=== PATIENT | male | born 1980 | race Caucasian/White ===

== ENCOUNTER 2022-01-25 10:33 | Outpatient (CLI) | payer OTHER, SELFPAY ==
[2022-01-25 13:53] LABS: Chloride* 95 mmol/L (96-114)
[2022-01-25 13:54] LABS: Albumin* 5.1 g/dL (3.3-5.0); Sodium* 139 mmol/L (135-149)
[2022-01-25 13:56] LABS: Creatinine* 0.8 mg/dL (0.5-1.5); Estimated Glomerular Filt Rate 114 ml/min
[2022-01-25 13:57] LABS: Alanine Aminotransferase* 28 U/L (4-50); Alkaline Phosphatase* 44 U/L (40-150); Aspartate Amino Transferase* 29 U/L (12-35); Bilirubin Total* 1.3 mg/dL (0.1-1.5); Blood Urea Nitrogen* 16 mg/dL (5-24); Calcium* 10.4 mg/dL (8.4-10.6); Carbon Dioxide* 33 mmol/L (20-32); Glucose* 107 mg/dL (60-115); Potassium* 3.7 mmol/L (3.6-5.1); Total Protein* 8.5 g/dL (6.0-8.3)
[2022-01-25 14:06] LABS: Cholesterol* 248 mg/dL (90-199); HDL Cholesterol* 41 mg/dL (>=40); LDL Cholesterol Calculated 176 mg/dL (<100); Triglycerides* 153 mg/dL (40-149)
--- OUTSIDE RECORDS SUMMARY | 2022-02-20 12:19 | XMS_ITS | Encounter Summary ---
:1980 Author Organization [place] Address [address] [facility] [place] [address] Care Team Providers Name Role Phone Clinic, [facility] Primary Care Provider [phone] Kathi Clark MD Unavailable Encounter Details Date Type Department Care Team Description 01/18/2022 Travel Social History Tobacco Use Types Packs/Day Years Used Date Never Smoker 0 0 Smokeless Tobacco: Never Used Alcohol Use Standard Drinks/Week Comments Not Currently 0 (1 standard drink = 0.6 oz pure Use to drink 2-3 drinks a day 5 alcohol) days a week. Current ly zero Alcohol Habits Answer Date Recorded How often do you have a drink Not asked containing alcohol? How many drinks containing alcohol Not asked do you have on a typical day when you are drinking? How often do you have six or more Not asked drinks on one occasion? Comment: Use to drink 2-3 drinks a day 5 10/13/19 22 days a week. Currently zero Sex Assigned at Date Recorded Male 10/09/2021 11:09 AM CDT Travel History Travel Start Travel End [place] 12/30/2021 01/12/2022 COVID-19 Exposure Response Date Recorded In the last 10 days, have you been in contact with No / Unsu re 01/18/2022 9:15 AM CDT someone who was confirmed or suspected to have Coronavirus/COVID-19? documented as of this encounter Plan of Treatment Upcoming Encounters Date Type Specialty Care Team Description 02/07/2022 Virtual Visit Psychology Raulito Flores tt, REVENUE SETTLEMENTS ADMINISTRATOR [address] [place] [address] (Wo rk) 02/15/2022 Ancillary Procedure Neurology Leann Schmitt MD [address] [place] [phone] (Wo rk) 03/05/2022 Virtual Visit Neurology Leann Villagran MD [address] [place] [address] [phone] (Wo rk) documented as of this encounter Visit Diagnoses Not on filedocumented in this encounter Additional Health Concerns Assessment Noted Time PHQ-9 Depression Total Score: 2 10/27/2021 8:19 AM CDT documented as of this encounter Care Teams Manager Sas Relationship Specialty Start Date End Date Clinic, [place] Jaja Rowan PCP - General 10/31/[address] [place] [address] [place] [address] Kathi Clark MD Assigned PCP 09/21/[address] [place] [address] [place] [id number] documented as of this encounter
--- OUTSIDE RECORDS SUMMARY | 2022-02-20 12:19 | XMS_ITS | Encounter Summary ---
:1980 Author Organization [place] Address Formerly [facility] [facility] [place] [address] Care Team Providers Name Role Phone [facility] Jaja Rivera Primary Care Provider [phone] Kathi Clark MD Unavailable Reason for Visit Reason Comments Follow Up Consultation (Priority: 1-2 Weeks) - Closed Specialty Diagnoses / Procedures Referred By Contact Refer red To Contact Diagnoses Seizures (H) Alcohol dependence with withdrawal with complication (H) Kathi Clark MD [address] D R NEUROLOGY [place] [phone] [place] [address] [address] [place] [phone] Phone: Fax: Referral ID Status Reason Start Date Expiration Date Visits Requ ested Visits Authorized [id number] Closed 10/31/2021 10/31/2022 1 1 Encounter Details Date Type Department Care Team Description 01/18/2022 Office Visit [facility] Kathi Clark MD [address] [place] [address] [place] [phone] Seizures (H); 5775 Leann Rose MD [address] [place], [place] [address] Alcohol dependence with withdrawal with complication (H) [address], [address] [place] [address] Social History Tobacco Use Types Packs/Day Years [...] CDT Travel History Travel Start Travel End [place] 12/30/2021 01/12/2022 COVID-19 Exposure Response Date Recorded In the last 10 days, have you been in contact with No / Unsu re 01/18/2022 9:15 AM CDT someone who was confirmed or suspected to have Coronavirus/COVID-19? documented as of this encounter Last Filed Vital Signs Vital Sign Reading Time Taken Comments Blood Pressure 136/83 01/18/2022 9:22 AM CDT Pulse 87 01/18/2022 9:22 AM CDT Temperature 36.2 ??C (97.2 ??F) 01/18/2022 9:22 AM CDT Respiratory Rate - - Oxygen Saturation - - Inhaled Oxygen Concentration - - Weight 84.9 kg (187 lb 3.2 oz) 01/18/2022 9:22 AM CDT Height 182.9 cm (6') 01/18/2022 9:22 AM CDT Body Mass Index 25.39 01/18/2022 9:22 AM CDT documented in this encounter Progress Notes Leann Villagran MD - 01/18/2022 9:30 AM CDT [facility] Epilepsy Care History and Physical Patient: Darien Mckenzie : 1980 Age: [age] year old Today's Office Visit: 01/18/2022 Referring Provider: Kathi Clark MD [address] [address] History of Present Illness: Mr. Darien Bui is an 41-year-old left-handed male who was referred for evaluation of an isolated seizure. His seizure occurred on September 2021. He was at her sister's house and they had a libertarian for his [id number]. She was giving his daughter a bottle and then he had a seizure. He was told he fell onto his side. He bit his tongue. No urinary incontinence. They day before they went to [facility] in [place], and at some point he felt dehydrated. I talked to his [id number] Paul, who witnessed the seizure on the phone. He said the first thingthey noted was that Darien let out a gasping sound, then he tilted to the side. He turned blue, he wasvery stiff as a board and also was shaking, moving his arms up and down. It lasted about ~4 min. Afterwards he was breathing hard. It took about 15 min to come to. He was very confused afterwards. He went to [facility] in [place]. He was started on gabapentin taper after his seizure. He is off GBP now. He had increased LFTs AST/ALT 203/156 10/02/21 which came down to 91/126 on 10/19/21. He says they were checked in December and were normal. (outside lab) He states that he used to drink a lot daily, more specifically 5-10 heavy drinks daily. Then he decided to gradually cut back on his drinking as a New Year's resolution. He was still drinking heavilyup to about a week prior to his seizure. On that week he drank 0-2 drinks per day and no drink on the day of the seizure. He has been sober since December 08, 2021. He participates in AA program. Epilepsy Risk Factors: No history of febrile seizures, meningitis or encephalitis, significant head injury or family history of epilepsy. Precipitating factors: Likely alcohol withdrawal Past Medical History: h/o alcohol abuse and dependence, HTN, hepatic steatosis. Past Medical History: Diagnosis Date ??? Hypertension 10/01/2021 Past Surgical History: Procedure Laterality Date ??? SOFT TISSUE SURGERY 07/15/1999 Nerve repair right index finger Family History Problem Relation Age of Onset ??? Diabetes Maternal Grandfather ??? Diabetes Paternal Grandmother Diabetes ??? Dementia Paternal Grandfather Social History Socioeconomic History ??? Marital status: Single Spouse name: None ??? Number of children: None ??? Years of education: None ??? Highest education level: None Tobacco Use ??? Smoking status: Never Smoker ??? Smokeless tobacco: Never Used Substance and Sexual Activity ??? Alcohol use: Not Currently Comment: Use to drink 2-3 drinks a day 5 days a week. Currently zero ??? Drug use: Never ??? Sexual activity: Yes Partners: Female control/protection: Pill Other Topics Concern ??? Parent/sibling w/ CABG, SC or angioplasty before 65F 55M? No Employment/School: he quit smoking 2003. He has 4 yr college education in business management and finance, he does financial planning, currently unemployed. He is . He has 3 kinds 1, 7 and 12. Driving: Currently patient is: Driving Previous Evaluations for Epilepsy: EEG 10/03/21: This a largely normal EEG. The low amplitude/high frequency activity is characteristicof a benzodiazepine effect, but hyperthyroidism could also produce this picture. He has no evidence of focal slowing, epileptiform discharges, or seizure activity. Clinical correlation is required. MRI of Brain 10/02/21: Unremarkable Current Outpatient Medications Medication Sig Dispense Refill ??? amLODIPine (NORVASC) 10 MG tablet Take 10 mg by mouth daily ??? folic acid (FOLVITE) 1 MG tablet Take 1 tablet (1 mg) by mouth daily 30 tablet 0 ??? hydrochlorothiazide (HYDRODIURIL) 25 MG tablet Take 25 mg by mouth daily Started on 12/28/21 for 30 days. ??? thiamine (B-1) 100 MG tablet Take 1 tablet (100 mg) by mouth daily 30 tablet 0 ??? amLODIPine (NORVASC) 2.5 MG tablet Take 1 tablet (2.5 mg) by mouth daily (Patient not taking: Reported on 01/18/2022) 90 tablet 2 ??? cetirizine (ZYRTEC) 10 MG tablet Take 10 mg by mouth daily as needed for allergies (fall season)(Patient not taking: Reported on 10/27/2021) ??? fexofenadine-pseudoePHEDrine (JENNIFER-D 24) 180-240 MG 24 hr tablet Take 1 tablet by mouth dailyas needed for allergies (fall season) (Patient not taking: Reported on 10/27/2021) ??? fluticasone (FLONASE) 50 MCG/ACT nasal spray [place] 1 spray into both nostrils daily as needed for rhinitis or allergies (fall season) (Patient not taking: Reported on 10/27/2021) ??? ketotifen (ZADITOR) 0.025 % ophthalmic solution Place 1 drop into both eyes 2 times daily as needed for itching or dry eyes (fall season) (Patient not taking: Reported on 10/27/2021) ??? Multiple Vitamins-Minerals (MULTIVITAMIN GUMMIES ADULT) CHEW Take 1 chew tab by mouth daily (Patient not taking: Reported on 10/27/2021) ??? naproxen sodium (ANAPROX) 220 MG tablet Take 220 mg by mouth 3 times daily as needed for moderate pain (Patient not taking: Reported on 10/27/2021) ??? oxymetazoline (AFRIN) 0.05 % nasal spray [place] 2 sprays into both nostrils 2 times daily as needed for congestion (fall season) (Patient not taking: Reported on 10/27/2021) Past AEDs: AED - ANTIEPILEPTIC DRUGS 10/12/2021 gabapentin (Oral) Discontinued Exam: BP 136/83 Pulse 87 Temp 97.2 ??F (36.2 ??C) (Temporal) Ht 1.829 m (6') Wt 84.9 kg (187 lb 3.2 oz) BMI 25.39 kg/m?? Wt Readings from Last 5 Encounters: 01/18/22 84.9 kg (187 lb 3.2 oz) 12/14/21 83.9 kg (185 lb) 10/12/21 85.3 kg (188 lb) 10/05/21 85.1 kg (187 lb 9.6 oz) GENERAL APPEARANCE: Alert, awake, cooperative, in no apparent distress. NEUROLOGICAL EXAMINATION: MENTAL STATUS: Alert and oriented. LANGUAGE/SPEECH: No aphasia or dysarthria. CRANIAL NERVES: Pupils are round and reactive to light. Extraocular movements are intact. Facial sensation is intact to light touch. Face is symmetric. Hearing is intact to voice. MOTOR: Normal tone, bulk and strength 5/5 with no pronator drift. COORDINATION: Normal finger to nose. No dysmetria or tremor. REFLEXES: DTRs 2+ symmetric. Toes are downgoing. GAIT: Gait and tandem gait are steady. Assessment and Plan: An isolated generalized tonic-clonic seizure, likely alcohol withdrawal seizure: Patient had an outside EEG and brain MRI which were unremarkable. Patient has no known risk factors for epilepsy. His seizure occurred after 1 week of significant decrease in alcohol consumption after drinking heavily daily. He received thiamine and was put on CIWA protocol, and gabapentin taper. He is off gabapentin now. He was also encouraged to participate in AA program for his chemical dependency, which he did and he has been sober since 12/08. I encouraged him to continue staying sober. I suggested to do an EEG andif his EEG was normal he does not need to take any antiseizure medications. [place] regulations on seizures and driving were reviewed with the patient. The patient clearly understands that she/he is prohibited from operating a motor vehicle within 3 months following any seizure (that will impair control of car) or other episode with sudden unconsciousness or inability to sit up, and that she/he is required to report this most recent seizure to the DMV within 30 days after the event. Avoid any activities that might lead to self-injury or injury of others, within 3 months following any seizure with impaired awareness or impaired motor control such activities include but are not limited to operating power tools, operating firearms, climbing ladders/trees/exposure to heights from which he might fall, exposure to vessels with hot cooking oil or water, and swimming alone. -3-hour video EEG -Follow-up phone call after EEG As described above, I met with the patient for 45 minutes and during this time counseling was % of the visit time. I spent an additional 15 minutes on chart review and documentation. This notewas created in part by the use of [employer]izdee voice recognition system. Inadvertent grammatical errors and typographical errors may still exist. Leann Villagran MD documented in this encounter Plan of Treatment Upcoming Encounters Date Type Specialty Care Team Description 02/07/2022 Virtual Visit Psychology Raulito Flores tt, PASTRY CHEF [address] [place] [address] (Wo rk) 02/15/2022 Ancillary Procedure Neurology Leann Schmitt MD [address] [place] [phone] (Wo rk) 03/05/2022 Virtual Visit Neurology Leann Villagran MD [address] [place] [phone] (Wo rk) Scheduled Orders Name Type Priority Associated Diagnoses Order S chedule EEG Video 2-12 hrs EEG Routine Seizures (H) Expected: 01/18/2022 Continuous Monitoring (Appro ximate), Expires: 01/18/2023 documented as of this encounter Visit Diagnoses Diagnosis Seizures (H) Other convulsions Alcohol dependence with withdrawal with complication (H) documented in this encounter Additional Health Concerns Assessment Noted Time PHQ-9 Depression Total Score: 2 10/27/2021 8:19 AM CDT documented as of this encounter Care Teams Building Architectural Designer Relationship Specialty Start Date End Date [facility], [place] Jaja Rivera PCP - General 10/31/[address] [place] [address] [place] [address] Kathi Clark MD Assigned PCP 09/21/[address] [place] [address] [place] [phone] documented as of this encounter
--- OUTSIDE RECORDS SUMMARY | 2022-02-20 12:19 | XMS_ITS | Encounter Summary ---
:1980 Author Organization [facility] Address [address] [place] [address] Care Team Providers Name Role Phone [facility] [phone] Kathi Clark MD Unavailable Reason for Visit Reason Comments Anxiety Encounter Details Date Type Department Care Team Description 01/24/2022 Virtual Visit [facility] Raulito Flores Other spe cified anxiety disorders (Primary Dx); [facility] THERESE Cain Alcohol use disorder, severe, dependence (H) [address] [place] [id number] [phone] Social History Tobacco Use Types Packs/Day Years [...] CDT Travel History Travel Start Travel End [place] 12/30/2021 01/12/2022 COVID-19 Exposure Response Date Recorded In the last 10 days, have you been in contact with No / Unsu re 01/18/2022 9:15 AM CDT someone who was confirmed or suspected to have Coronavirus/COVID-19? documented as of this encounter Progress Notes Raulito Flores, THERESE - 01/24/2022 11:00 AM CDT Images from the original note were not included. [facility] Counseling Progress Note Patient Name: Darien Mckenzie Date: 01/24/22 Service Type: Individual Session Start Time: 11 AM Session End Time: 11:57 AM Session Length: 60 minutes Session #: 8 Attendees: Client attended alone Service Modality: Video Visit: Provider verified identity through the following two step process. Patient provided: Patient was verified at admission/transfer Telemedicine Visit: The patient's condition can be safely assessed and treated via synchronous audioand visual telemedicine encounter. Reason for Telemedicine Visit: Patient has requested telehealth visit Originating Site (Patient Location): Patient's home Distant Site (Provider Location): [facility] Consent: The patient/guardian has verbally consented to: the potential risks and benefits of telemedicine (video visit) versus in person care; bill my insurance or make self-payment for services provided; and responsibility for payment of non-covered services. Patient would like the video invitation sent by: My Chart Mode of Communication:?? Video Conference via [employer] As the provider I attest to compliance with applicable laws and regulations related to telemedicine. DATA Extended Session (53+ minutes): PROLONGED SERVICE IN THE OUTPATIENT SETTING REQUIRING DIRECT ([id number]) PATIENT CONTACT BEYOND THE USUAL SERVICE: - Patient's presenting concerns require more intensive intervention than could be completed within the usual service Interactive Complexity: No Crisis: No Progress Since Last Session (Related to Symptoms / Goals / Homework): Symptoms: Improving Client has been sober from alcohol dependence. He completed [facility] inpatient treatment in [place], [place]. He continues to experience anxiety related to multiple stressors(current relationship conflicts, custody arguments with his Ex- Gerri, and needing to find employment).. Homework: Completed in session Episode of Care Goals: Minimal progress - ACTION (Actively working towards change); Intervened by reinforcing change plan / affirming steps taken Current / Ongoing Stressors and Concerns: The client returned to individual psychotherapy session to address anxiety, following the medical crisis of having a seizure following alcohol detoxification, struggles with his ex- (regular intense conflicts verbally and with the legal system; and his current partner has asked him to move in with his parents because of his alcohol relapses. He is currently in early remission from alcohol use/dependence. Client states he has been maintaining in his mood over his frustration towards his ex- Gerri. He states that he is feeling more direct and professional in his interactions rather than becoming irritated or personally reacting to her comments. 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 He talked about how he had managed his frustrations despite being verbally confronted and challenged many things. He states that his ex- has interfered with and made unilateraldecisions about the care and visitation of his children, which has violated the divorce decree. He describes several instances of this, and recognized that her difficulties arose significantly after a couple of months of trying to work through things. He was asked about the situation prior to the divorce and confirmed that his affair lasted for 3 years and then she was aware of the final 2 to 3 months. Therapist highlighted the importance of recognizing traumatization through relational betrayal to create space for that acceptance, and he was provided strategies on how to communicate clearly his acknowledgment of responsibility and other situations similar to the one he described. He states he hasbeen proficient at hiding things including his affair as well as his drinking. He is of negatively impacted his interactions with his fianc??laura Schmidt. He states that he is now finding her reactions (similar to PTSD betrayal) and stated that he may utilize this communication mechanism within his interactions with changing. He states that he hopes that things will progress and then she will accept his sobriety and conscientious needs in addition to his personal accountability to the relationship as well as of communicating an apology. He states that he also has understanding of the multitude of stressors that she is facing including a family cancer situation, her own parent struggling with care, chaotic interactions with others, and COVID. He described a situation where he spent almost an snorkelingand this negatively impacted the relationship because she felt he was there for her and entertained his own activity without consideration for her or the relationship. Therapist advised the client to be direct and assist his fianc??e in communicating directly with him as well, rather than processing most things internally. Treatment Objective(s) Addressed in This Session: identify 2-5 strategies to more effectively address stressors identify at least 3 alternative response(s) to aggressive behaviors Maintaining perspective over his needs for ongoing support with respect to alcohol and family changes. Assertiveness and listening skills were provided. Intervention: Motivational Interviewing HI Intervention: Expressed Empathy/Understanding, Supported Autonomy, Collaboration, Evocation, Permission to raise concern or advise, Open-ended questions, Reflections: simple and complex, Change talk(evoked) and Reframe Change Talk Expressed by the Patient: Desire to change Ability to change Reasons to change Need to change Committment to change Provider Response to Change Talk: E - Evoked more info from patient about behavior change, A - Affirmed patient's thoughts, decisions, or attempts at behavior change, R - Reflected patient's change talk and S - Summarized patient's change talk statements Assessments completed prior to visit: The following assessments were completed by patient for this visit: PHQ2: PHQ-2 (??1999 [employer]) 01/19/2022 10/18/2021 Q1: Little interest or pleasure in doing things 1 0 Q2: Feeling down, depressed or hopeless 1 0 PHQ-2 Score 2 0 Q1: Little interest or pleasure in doing things Several days Not at all Q2: Feeling down, depressed or hopeless Several days Not at all PHQ-2 Score 2 0 PHQ9: PHQ-9 SCORE 10/12/2021 10/27/2021 PHQ-9 Total Score 0 2 GAD2: LETA-2 10/18/2021 01/19/2022 Feeling nervous, anxious, or on edge 0 1 Not being able to stop or control worrying 0 1 LETA-2 Total Score 0 2 GAD7: LETA-7 SCORE 10/12/2021 10/27/2021 Total Score 0 2 CAGE-AID: CAGE-AID Total Score 10/18/2021 Total Score 2 Total Score MyChart 2 (A total score of 2 or greater is considered clinically significant) PROMIS 10-Global Health (only subscores and total score): PROMIS-10 Scores Only 10/18/2021 01/19/2022 Global Mental Health Score 17 10 Global Physical Health Score 18 16 PROMIS TOTAL - SUBSCORES 35 26 [place] Suicide Severity Rating Scale (Lifetime/Recent) [place] Suicide Severity Rating (Lifetime/Recent) 10/18/2021 10/27/2021 Q1 Wished to be (Past Month) - no Q2 Suicidal Thoughts (Past Month) - no Q3 Suicidal Thought Method - no Q4 Suicidal Intent without Specific Plan - no Q5 Suicide Intent with Specific Plan - no Q6 Suicide Behavior (Lifetime) - no Level of Risk per Screen - low risk 1. Wish to be (Lifetime) 0 - 2. Non-Specific Active Suicidal Thoughts (Lifetime) 0 - Actual Attempt (Lifetime) 0 - Has subject engaged in non-suicidal self-injurious behavior? (Lifetime) 0 - Interrupted Attempts (Lifetime) 0 - Aborted or Self-Interrupted Attempt (Lifetime) 0 - Preparatory Acts or Behavior (Lifetime) 0 - Calculated C-SSRS Risk Score (Lifetime/Recent) No Risk Indicated - ASSESSMENT: Current Emotional / Mental Status (status of significant symptoms): Risk status (Self / Other harm or suicidal ideation) Patient denies current fears or concerns for personal safety. Patient denies current or recent suicidal ideation or behaviors. Patient denies current or recent homicidal ideation or behaviors. Patient denies current or recent self injurious behavior or ideation. Patient denies other safety concerns. Patient reports there has been no change in risk factors since their last session. Patient reports there has been no change in protective factors since their last session. Recommended that patient call 911 or go to the local ED should there be a change in any of these risk factors. Appearance: Appropriate Eye Contact: Good Psychomotor Behavior: Normal Attitude: Cooperative Friendly Pleasant Orientation: All Speech Rate / Production: Normal/ Responsive Talkative Volume: Normal Mood: Anxious Depressed Irritable Sad Affect: Worrisome Thought Content: Clear Rumination Thought Form: Coherent Logical Insight: Good Medication Review: No current psychiatric medications prescribed Medication Compliance: NA Changes in Health Issues: None reported Chemical Use Review: Substance Use: decrease in alcohol . Patient reports frequency of use discontinued since the end 2021.. Reviewed information and resources for treatment and ongoing sobriety Patient assessed present costs and future losses as a result of substance use Reviewed concerns related to health related substance abuse risk Provided encouragement towards sobriety Provided support and affirmation for steps taken towards sobriety Discussed treatment options and encouraged patient to schedule an appointment with PCP Client took initiative to contact [facility] treatment centers, and completed evaluation by Chemical Dependency counselor. Recommendation was for him to start IOP for his alcohol use. Client completed treatment, and has been sober/early remission from alcohol since beginning his program at [facility]. Tobacco Use: No current tobacco use. Diagnosis: 1. Other specified anxiety disorders 2. Alcohol use disorder, severe, dependence (H) Collateral Reports Completed: Not Applicable He is scheduled for [facility] on January 04 and (pre-admission screening) and January 11 he will start his daily outpatient treatment. PLAN: (Patient Tasks / Therapist Tasks / Other) Client will use metaphors (alcohol as the other woman) to inform his decisions to drink or not drink.Client will return to session with his partner later in the week to discuss trust rebuilding.Client will finish paperwork for a release of information to be sent to [facility]. Client was approved for [facility], and will start the group program at [facility] in the coming week and a half. He agreed to speak with his physician about his preference to restart Gabapentin. He is monitoring for DT's and will admit himself into the hospital if his symptoms emerge or worsen. He will review handouts regarding Repair Attempts ([place]) to assist with interactions with others, and will consider coping strategies and distraction methods that can be used for emotion regulation (to replace using the substance to bethe regulating behavior). Heart-Math biofeedback was recommended client stated he will look into it as well as use progressive muscle relaxation. Therapist will resume sessions when client deems it appropriate. Therapist referred to a psychiatrist (priority referral) and was encouraged to keep his next week appointment. Therapist will address repair with his fianc??e regarding his alcohol use disorder and health fears. Handouts provided for Repair attempts and coping strategies. Therapist will offer suggestions for emotion regulation protocols. 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 PROMIS (reviewed every 90 days): Referral / Collaboration: Was/were discussed and patient will pursue. [facility] treatment services were identified by the client as helpful. He has an appointment for debt collection specialist evaluation and referral for their services. Anticipated number of session for this episode of care: 15 Anticipation frequency of session: Weekly Anticipated Duration of each session: 38-52 minutes Treatment plan will be reviewed in 90 days or when goals have been changed. MeasurableTreatment Goal(s) related to diagnosis / functional impairment(s) Goal 1: Patient will resolve anxiety from multiple changes in his life context (including resolving substance use challenges). ???I will know I've met my goal when I am sober and relaxed.??? Objective #A (Patient Action) Patient will identify 5 strategies to more effectively address stressors Complete alcohol use disorder services. identify patterns of escalation (i.e. tightness in chest, flushed face, increased heart rate, clenched hands, etc.) identify at least 5 techniques for intervening on the escalation use progressive relaxation exercise once in the morning and once in the evening to help relieve tension Repair damage from lying about drinking, and reinforce trust within his relationship with Brayan Status: Continued - Date(s): 01/24/2022: Client completed alcohol use treatment at [facility], and has been sober from alcohol since the end of November 2021. He continues to have irritability and increased physiological response/tension with respect to triggering events. He has utilized some relaxation strategies. He continues to require intervention regarding assertiveness communication and emotion regulation. Intervention(s) Therapist will teach Emotion regulation skills, strategies to reduce destructive anger, and trust repair strategies.. Patient and Patient and significant other/spouse has reviewed and agreed to the above plan. THERESE Mcclendon 01/24/22 documented in this encounter Plan of Treatment Upcoming Encounters Date Type Specialty Care Team Description 02/07/2022 Virtual Visit Psychology Raulito Flores tt, THERESE [address] [place] [address] (Wo rk) 02/15/2022 Ancillary Procedure Neurology Leann Schmitt MD [address] [place] [id number] (Wo rk) 03/05/2022 Virtual Visit Neurology Leann Villagran MD [address] [place] [id number] (Wo rk) documented as of this encounter Visit Diagnoses Diagnosis Other specified anxiety disorders - Prim ernesto Alcohol use disorder, severe, dependence (H) documented in this encounter Additional Health Concerns Assessment Noted Time PHQ-9 Depression Total Score: 2 10/27/2021 8:19 AM CDT documented as of this encounter Care Teams Real Time Operator Relationship Specialty Start Date End Date [facility], [facility] Jaja Rowan PCP - General 10/31/[address] [place] [address] [place] [id number] Kathi Clark MD Assigned PCP 09/21/[address] [place] [address] [place] [id number] documented as of this encounter
--- OUTSIDE RECORDS SUMMARY | 2022-02-20 12:19 | XMS_ITS | Encounter Summary ---
:1980 Author Organization [place] Address [address] [facility] [place] [address] Care Team Providers Name Role Phone [facility], [facility] Primary Care Provider [phone] Kathi Clark MD Unavailable Encounter Details Date Type Department Care Team Description 11/24/2021 Virtual Visit [facility] Raulito Flores spe cified anxiety disorders (Primary Dx); [facility] THERESE Cain Uncomplicated alcohol dependence (H) [address] [place] [address] [address] [place] [address] [phone] Social History Tobacco Use Types Packs/Day Years [...] CDT Travel History Travel Start Travel End [place] 12/30/2021 01/12/2022 COVID-19 Exposure Response Date Recorded In the last 10 days, have you been in contact with No / Unsu re 10/26/2021 8:29 AM CDT someone who was confirmed or suspected to have Coronavirus/COVID-19? documented as of this encounter Progress Notes Raulito Flores, THERESE - 11/24/2021 10:00 AM CDT Images from the original note were not included. [facility] Counseling Progress Note Patient Name: Darien Mckenzie Date: 11/24/21 Service Type: Individual Session Start Time: 10 AM Session End Time: 11:01 AM Session Length: 61 minutes Session #: 6 Attendees: Client attended alone Service Modality: Video Visit: Provider verified identity through the following two step process. Patient provided: Patient was verified at admission/transfer Telemedicine Visit: The patient's condition can be safely assessed and treated via synchronous audioand visual telemedicine encounter. Reason for Telemedicine Visit: Patient has requested telehealth visit Originating Site (Patient Location): Patient's home Distant Site (Provider Location): [employer] Consent: The patient/guardian has verbally consented to: the potential risks and benefits of telemedicine (video visit) versus in person care; bill my insurance or make self-payment for services provided; and responsibility for payment of non-covered services. Patient would like the video invitation sent by: My Chart Mode of Communication:?? Video Conference via Vig[employer] As the provider I attest to compliance with applicable laws and regulations related to telemedicine. DATA Extended Session (53+ minutes): PROLONGED SERVICE IN THE OUTPATIENT SETTING REQUIRING DIRECT ([id number]) PATIENT CONTACT BEYOND THE USUAL SERVICE: - Patient's presenting concerns require more intensive intervention than could be completed within the usual service Interactive Complexity: No Crisis: No Progress Since Last Session (Related to Symptoms / Goals / Homework): Symptoms: No change Client stated has been drinking daily 1-2 mixed drinks per night, and occasionally 4 mixed drinks or burbon on ice. He continues to deal with legal and skilled nursing issues ex-. Christopherds 2 AA groups daily, and is involved in a closed men's group called [facility]. He stated he was prescribed Gabapentin for alcohol urges. His anxiety and striggles with handleing emotions has been challenging. He shows signs of irritability and frustration outwardly, and anxiouness and shame internally. His relationship with his fiance' is challenged as Darien has lied about drinking and has shown insecurities leading to distance between the two. He has not had a siezure since starting counseling, butreported shakes when delaying alcohol use. . Homework: Completed in session Episode of Care [...] his parents because of his alcohol relapses. The client states consumed 1-2 drinks per evening every night, and has 4 drinks of bourbon on other occasions. He stated he often gets the thought, I need a drink. He has a talk with a provider the other night and was prescribed Gabapentin 300 mg once per day. He is hopeful his urge to drink will reduce, and that he can Establish sobriety. He was urged to consider how he may formulate a specific plan of reduction and was asked to address this in his substance abuse provider network, to get guidance on the matter. He agreed this would be an important agenda to pursue. He stated his emotions have been more irritable and with some sadness as he has some poorly worded interactions with his sons. He s tated he was raised in an extended family system indict that was verbally direct and used more roughstyles of interactions and parents spanked. He was provided information about parenting styles (Permissive, Authoritarian, and Authoritative), and he was urged to catch his own words that may sound aggr essive and own it. He agreed he could try this, and was receptive to the idea of formulating repairswith those he speaks this way with (Brayan, the boys, etc.). The client is involved in daily AA groups in the mornings and evenings, and stated he would be open to having another session next Saturday to follow up on his process. Therapist sent the client materials on repair attempts. Treatment Objective(s) Addressed in This Session: identify 2-5 strategies to more effectively address stressors identify at least 3 alternative response(s) to aggressive behaviors Intervention: Motivational Interviewing [place] Intervention: Expressed Empathy/Understanding, Supported Autonomy, Collaboration, Evocation, [...] for this visit: PHQ2: PHQ-2 (??1999 Pfizer) 10/18/2021 Q1: Little interest or pleasure in doing things 0 Q2: Feeling down, depressed or hopeless 0 PHQ-2 Score 0 Q1: Little interest or pleasure in doing things Not at all Q2: Feeling down, depressed or hopeless Not at all PHQ-2 Score 0 PHQ9: PHQ-9 SCORE 10/12/2021 10/27/2021 PHQ-9 Total Score 0 2 GAD2: LETA-2 10/18/2021 Feeling nervous, anxious, or on edge 0 Not being able to stop or control worrying 0 LETA-2 Total Score 0 GAD7: LETA-7 SCORE 10/12/2021 10/27/2021 Total Score 0 2 CAGE-AID: CAGE-AID Total Score 10/18/2021 Total Score 2 Total Score MyChart 2 (A total score of 2 or greater is considered clinically significant) PROMIS 10-Global Health (only subscores and total score): PROMIS-10 Scores Only 10/18/2021 Global Mental Health Score 17 Global Physical Health Score 18 PROMIS TOTAL - SUBSCORES 35 [place] Suicide Severity Rating Scale (Lifetime/Recent) [place] Suicide Severity Rating (Lifetime/Recent) 10/18/2021 10/27/2021 Q1 [...] Contact: Good Psychomotor Behavior: Normal Attitude: Cooperative Pleasant Orientation: All Speech Rate / Production: Normal/ Responsive Talkative Volume: Normal Mood: Anxious Irritable Sad Agitated Affect: Worrisome Thought Content: Clear Rumination Thought Form: Coherent Logical Insight: Good Medication Review: No current psychiatric medications prescribed Medication Compliance: NA Changes in Health Issues: None reported Chemical Use Review: Substance Use: decrease in alcohol . Patient reports frequency of use average of 1-2 daily per mostrecent disclosure.. Reviewed information and resources for treatment and ongoing sobriety Patient assessed present costs and future losses as a result of substance use Reviewed concerns related to health related substance abuse risk Provided encouragement towards sobriety Provided support and affirmation for steps taken towards sobriety Discussed treatment options and encouraged patient to schedule an appointment with PCP Client took initiative to contact [facility] centers, and completed evaluation by Chemical Dependency counselor. Recommendation was for him to start IOP for his alcohol use. Tobacco Use: No current tobacco use. Diagnosis: 1. Other specified anxiety disorders 2. Uncomplicated alcohol dependence (H) Collateral Reports Completed: Not Applicable He is scheduled for [place] on January 04 and (pre-admission screening) and [...] release of information to be sent to [facility]. Client was approved for [place], and will start the group program at [facility] in the coming week and a half. He agreed to speak with his physician about his preference to restart Gabapentin. He is monitoring for DT's and will admit himself into the hospital if his symptoms emerge or worsen. He will review handouts regarding Repair Attempts (Franko) to assist with interactions with others, and will consider coping strategies and distraction methods that can be used for emotion regulation (to replace using the substance to bethe regulating behavior). Therapist will resume sessions when client deems it appropriate. Therapist referred to a psychiatrist (priority referral) and was encouraged to keep his next week appointment. Therapist will address repair with his fianc??e regarding his alcohol use disorder and health fears. Handouts provided for Repair attempts and coping strategies. 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 PROMIS (reviewed every 90 days): Referral / Collaboration: Was/were discussed and patient will pursue. [facility] treatment services were identified by the client as helpful. He has an appointment for hse specialist evaluation and referral for their services. [...] trust within his relationship with Brayan Status: New - Date: 10/26/2021 Intervention(s) Therapist will teach Emotion regulation skills, strategies to reduce destructive anger, and trust repair strategies.. Patient and Patient and significant other/spouse has reviewed and agreed to the above plan. THERESE Mcclendon 11/24/21 documented in this encounter Plan of Treatment Upcoming Encounters Date Type Specialty Care Team Description 02/07/2022 Virtual Visit Psychology Raulito Flores, THERESE [address] [place] [address] ([place]) 02/15/2022 Ancillary Procedure Neurology Leann Schmitt MD [address] [place] [phone] ([place]) 03/05/2022 Virtual Visit Neurology Leann Villagran MD [address] [place] [address] [phone] ([place]) documented as of this encounter Visit Diagnoses Diagnosis Other specified anxiety disorders - Prim ernesto Uncomplicated alcohol dependence (H) Other and unspecified alcohol dependence , unspecified drinking behavior documented in this encounter Additional Health Concerns Assessment Noted Time PHQ-9 Depression Total Score: 2 10/27/2021 8:19 AM CDT documented as of this encounter Care Teams Broomcorn Press Feeder Relationship Specialty Start Date End Date Clinic, [place] Jaja Rowan PCP - General 10/31/[address] [place] [address] [place] [address] Kathi Clark MD Assigned PCP 09/21/[address] [place] [address] [place] [phone] documented as of this encounter
--- OUTSIDE RECORDS SUMMARY | 2022-02-20 12:19 | XMS_ITS | Encounter Summary ---
:1980 Author Organization [place] Address [facility] [place] [address] Care Team Providers Name Role Phone [facility] Primary Care Provider [phone] Kathi Clark MD Unavailable Reason for Visit Reason Onset Date Comments Refill Request 11/21/2021 folic acid (FOLVITE) 1 MG tablet Encounter Details Date Type Department Care Team Description 11/21/2021 Refill [facility] [address] [place] [address] [address] [facility] tab let) [place] [address] [phone] (Wo rk) Social History Tobacco Use Types Packs/Day Years [...] have Coronavirus/COVID-19? documented as of this encounter Miscellaneous Notes Telephone Encounter - Alexandro Castellon RN - 11/23/2021 11:02 AM CDT Routing refill request to provider for review/approval because: Routing to confirm that patient should take this medication 1 more month Alexandro Castellon RN [facility] Triage Nurse Telephone Encounter - Martina Moon - 11/21/2021 4:14 PM CDT documented in this encounter Plan of Treatment Upcoming Encounters Date Type Specialty Care Team Description 02/07/2022 Virtual Visit Psychology Raulito Flores tt, [address] [phone] ([place]) 02/15/2022 Ancillary Procedure Neurology Leann Schmitt MD [address] [place] [address] [phone] ([place]) 03/05/2022 Virtual Visit Neurology Leann Villagran MD [address] [place] [address] [phone] ([place]) documented as of this encounter Visit Diagnoses Diagnosis Alcohol dependence with uncomplicated wi thdrawal (H) Other and unspecified alcohol dependence , unspecified drinking behavior documented in this encounter Additional Health Concerns Assessment Noted Time PHQ-9 Depression Total Score: 2 10/27/2021 8:19 AM CDT documented as of this encounter Care Teams Consumer Affairs Director Relationship Specialty Start Date End Date [facility], [place] Jaja Rowan PCP - General 10/31/[address] [place] [address] [place] [phone] Kathi Clark MD Assigned PCP 09/21/[address] [place] [address] [place] [address] documented as of this encounter
--- OUTSIDE RECORDS SUMMARY | 2022-02-20 12:19 | XMS_ITS | Encounter Summary ---
:1980 Author Organization [place] Address [address] [facility] [place] [address] Care Team Providers Name Role Phone [facility] Provider [phone] Kathi Clark MD Unavailable Reason for Visit Reason Comments Anxiety Encounter Details Date Type Department Care Team Description 01/19/2022 Virtual Visit [facility] Raulito Flores Other spe cified anxiety disorders (Primary Dx); [facility] THERESE Cain Uncomplicated alcohol dependence (H) [address] [place] [address] [address] [place] [address] [phone] Social History Tobacco Use Types Packs/Day Years [...] as of this encounter Progress Notes Raulito Flores LMFT - 01/19/2022 9:00 AM CDT Images from the original note were not included. [facility] Counseling Progress Note Patient Name: Darien Mckenzie Date: 01/19/22 Service Type: Individual Session Start Time: 9 AM Session End Time: 10 AM Session Length: 60 minutes Session #: 7 Attendees: Client attended alone Service Modality: Video Visit: Provider verified identity through the following two step process. Patient provided: Patient was verified at admission/transfer Telemedicine Visit: The patient's condition can be safely assessed and treated via synchronous audioand visual telemedicine encounter. Reason for Telemedicine Visit: Patient has requested telehealth visit Originating Site (Patient Location): Patient's home Distant Site (Provider Location): [facility] Consent: The patient/guardian has verbally consented to: the potential risks and benefits of telemedicine (video visit) versus in person care; bill my insurance or make self-payment for services provided; and responsibility for payment of non-covered services. Patient would like the video invitation sent by: My Chart Mode of Communication:?? Video Conference via [employer] As the provider I attest to compliance with applicable laws and regulations related to telemedicine. DATA Extended Session (53+ minutes): PROLONGED SERVICE IN THE OUTPATIENT SETTING REQUIRING DIRECT ([id number]) PATIENT CONTACT BEYOND THE USUAL SERVICE: - Patient's presenting concerns require more intensive intervention than could be completed within the usual service Interactive Complexity: No Crisis: No Progress Since Last Session (Related to Symptoms / Goals / Homework): Symptoms: Improving Client has been sober from alcohol dependence for the following 42 days. He completed [facility] inpatient treatment in [place], [place]. He continues to experience anxiety related to multiple stressors (current relationship conflicts, custody arguments with his Ex- [...] in early remission from alcohol use/dependence. Client stated that he wished to address his coping strategies with respect to his ex- and the constant conflict that he experiences while trying to have time with his children from his first marriage. He states despite the marriage being over for several years, he continues to have to deal with negative interactions and violation of the divorce decree by his ex-. Therapist highlighted the importance of recognizing why he is becoming frustrated or angry, which yielded the following results: She was breaking the rules that were set and finalized, and has no true consequences or her multiple violations. Therapist offered validation and encouraged him to accept the situation as it is currently, and to utilize a coping skills flow chart for different scenarios that are most likely with his ex-. Therapist demonstrated how this may appear for other people and how he can identify different things that help him regulate his emotions better. Therapist encouraged him to look into heart math- biofeedback mechanisms to alter tension level and reduce frustration intolerance. He showed openness and willingness to explore. Therapist highlighted the importance also of emotional insight and responsiveness versus demanding means with respect to his interactions with his current on again off again relationship with Brayan. He discussed how he felt sad and disappointed with his partner's ambivalence and avoidance and now she moved his and his boys' belongings to a storage. He stated that symbolically, this meant to him that he is no longer part of her plan going forward. Therapist encouraged the client to hold off from that position, and to address his needs currently and to explore the options for his relationship with Brayan when he becomes more regulated. He states that the seizures and alcoholabuse have led to significant consequences for his life, and he continues to have perspective shifting from personal current experiences to the larger picture. Therapist encouraged him to continue going back and forth between experiencing and overall concept of current dynamics. Treatment Objective(s) Addressed in This Session: identify 2-5 strategies to more effectively address stressors identify at least 3 alternative response(s) to aggressive behaviors Maintaining perspective over his needs for ongoing support with respect to alcohol and family changes. Intervention: Motivational Interviewing [place] Intervention: Expressed Empathy/Understanding, Supported Autonomy, Collaboration, Evocation, [...] 16 PROMIS TOTAL - SUBSCORES 35 26 [place] Suicide Severity Rating Scale (Lifetime/Recent) [place] Suicide Severity Rating (Lifetime/Recent) 10/18/2021 10/27/2021 Q1 [...] Normal Mood: Anxious Irritable Sad Agitated Affect: Labile Worrisome Thought Content: Clear Rumination Thought Form: [...] with PCP Client took initiative to contact [facility], and completed evaluation by Chemical Dependency counselor. Recommendation was for him to start IOP for his alcohol use. Client completed treatment, and has been sober/early remission from alcohol since beginning his program at [facility]. Tobacco Use: No current tobacco use. Diagnosis: 1. Other specified anxiety disorders 2. Uncomplicated alcohol dependence (H) Collateral Reports Completed: Not Applicable He is scheduled for [place] on January 04 and (pre-admission screening) and [...] release of information to be sent to [facility]. Client was approved for [place], and will start the group program at [facility] in the coming week and a half. [...] will offer suggestions for emotion regulation protocols. 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 PROMIS (reviewed every 90 days): Referral / Collaboration: Was/were discussed and patient will pursue. [facility] treatment services were identified by the client as helpful. He has an appointment for talent specialist evaluation and referral for their services. [...] agreed to the above plan. THERESE Mcclendon 01/19/22 documented in this encounter Plan of Treatment Upcoming Encounters Date Type Specialty Care Team Description 02/07/2022 Virtual Visit Psychology Raulito Flores tt, THERESE [address] [place] [address] ([place]) 02/15/2022 Ancillary Procedure Neurology Olu-Leann Knox MD [address] [place] [address] [phone] (Wo rk) 03/05/2022 Virtual Visit Neurology Leann Villagran MD [address] [place] [phone] (Wo rk) documented as of this encounter Visit Diagnoses Diagnosis Other specified anxiety disorders - Prim ernesto Uncomplicated alcohol dependence (H) Other and unspecified alcohol dependence , unspecified drinking behavior documented in this encounter Additional Health Concerns Assessment Noted Time PHQ-9 Depression Total Score: 2 10/27/2021 8:19 AM CDT documented as of this encounter Care Teams Beater Engineer Helper Relationship Specialty Start Date End Date Clinic, [place] Jaja Rivera PCP - General 10/31/[address] [place] [address] [place] [address] Kathi Clark MD Assigned PCP 09/21/[address] [place] [address] [place] [phone] documented as of this encounter
--- OUTSIDE RECORDS SUMMARY | 2022-02-20 12:19 | XMS_ITS | Clinical Summary ---
:1980 Author Organization [place] Address [address] [facility] [place] [address] Care Team Providers Name Role Phone Clinic, [facility] Primary Care Provider [phone] Kathi Clark MD Unavailable Allergies Active Allergy Reactions Severity Noted Date Comments Sulfa Drugs 02/24/2011 Pain Hydrocodone-Acetaminophen Nausea and Vomiting 12/15/19 22 Medications Medication Sig Dispensed Refills Start Date End Date Status Multiple Take 1 chew tab by 0 A ctive Vitamins-Minerals mouth daily (MULTIVITAMIN GUMMIES ADULT) CHEW naproxen sodium Take 220 mg by 0 Active (ANAPROX) 220 MG mouth 3 times tablet daily as needed for moderate pain cetirizine (ZYRTEC) 10 Take 10 mg by 0 Active MG tablet mouth daily as needed for allergies (fall) oxymetazoline (AFRIN) [place] 2 sprays 0 Active 0.05 % nasal spray into both nostrils 2 times daily as needed for congestion (fall) fexofenadine-pseudoePH Take 1 tablet by 0 Active EDrine (JENNIFER-D 24) mouth daily as 180-240 MG 24 hr needed for tablet allergies (fall) ketotifen (ZADITOR) Place 1 drop into 0 Active 0.025 % ophthalmic both eyes 2 times solution daily as needed for itching or dry eyes (fall) fluticasone (FLONASE) [place] 1 spray into 0 Active 50 MCG/ACT nasal spray both nostrils daily as needed for rhinitis or allergies (fall) folic acid (FOLVITE) 1 Take 1 tablet (1 30 tablet 0 11/23/2021 Active MG tabletIndications: mg) by mouth daily Alcohol dependence with uncomplicated withdrawal (H) amLODIPine (NORVASC) Take 1 tablet (2.5 90 tablet 2 11/27/2021 Active 2.5 MG mg) by mouth daily tabletIndications: Alcohol dependence with uncomplicated withdrawal (H) Additional Information Patient not taking. Reported on 01/18/2022 thiamine (B-1) 100 MG Take 1 tablet (100 30 tablet 0 Active tabletIndications: Alcohol mg) by mouth daily dependence with uncomplicated withdrawal (H) amLODIPine (NORVASC) 10 MG tablet Take 10 mg by mouth 0 01/09/2022 Active daily hydrochlorothiazide (HYDRODIURIL) Take 25 mg by mouth 0 12/28/2021 Active 25 MG tablet daily Started on 12/28/21 for 30 days. Active Problems Problem Noted Date Adjustment disorder with anxious mood 11/10/2021 Uncomplicated alcohol dependence 11/10/2021 Seizure 10/01/2021 Hyperglycemia 10/01/2021 Elevated LFTs 10/01/2021 Encounters Date Type Specialty Care Team Description 01/24/2022 Virtual Visit Raulito Quiñonez Other specifie d anxiety disorders (Primary Dx); THERESE Cain Alcohol use dis order, severe, dependence (H) 01/19/2022 Virtual Visit Raulito Quiñonez Other specifie d anxiety disorders (Primary Dx); THERESE Cain Uncomplicated a lcohol dependence (H) 01/18/2022 Office Visit Neurology Namballa, Kathi, Seizures (H); Alcohol dependence with withdrawal with complication (H) Leann Villagran MD 01/18/2022 Travel 12/14/2021 Emergency EMERGENCY MEDICINE Dina Connor, Suresh ction of PA-C eustachian tube 12/14/2021 Travel 12/13/2021 Refill [facility] Refill R [facility] (thiamine (B-1) 100 MG tablet) 11/24/2021 Virtual Visit Raulito Quiñonez Other specifie d anxiety disorders (Primary Dx); THERESE Cain Uncomplicated a lcohol dependence (H) 11/24/2021 Travel 11/23/2021 Virtual Visit Raulito Quiñonez Adjustment dis order with anxious mood (Primary Dx); THERESE Cain Uncomplicated a lcohol dependence (H) 11/23/2021 Travel 11/23/2021 Refill [facility], [place] Refill R equest [facility] (amLODIPine (NO RVASC) 2.5 MG tablet) 11/21/2021 Refill [facility], [place] Refill R equest (folic [facility] acid (FOLVITE) 1 MG tablet) 11/17/2021 Virtual Visit Raulito Quiñonez Adjustment dis order with anxious mood (Primary Dx); THERESE Cain Alcohol use dis order, severe, dependence (H) 11/16/2021 Telephone Raulito Quiñonez Patient Request GHADA CainFT 11/10/2021 Virtual Visit Raulito Quiñonez Adjustment dis order with anxious mood (Primary Dx); THERESE Cain Alcohol use dis order, severe, dependence (H) 11/06/2021 Virtual Visit Raulito Quiñonez Adjustment dis order with anxious mood (Primary Dx); THERESE Cain Uncomplicated a lcohol dependence (H) 10/31/2021 Telephone [facility] Kathi Clark, Clinic Care MD Coordination - Post Hospital (Medic ation questions post hospital discharge) from Last 3 Months Immunizations Name Administration Dates Next Due COVID-19,PF,Pfizer (12+ Yrs) 06/02/2021, 11/08/2020, 021 DT (PEDS <7y) 05/29/1983 Hep B, Peds or Adolescent 02/08/2000 Historical DTP/aP 01/23/1985, 05/18/1982, 1980, 1980, 1980 Influenza Vaccine IM > 6 months 03/27/2021, 05/26/2014 Valent IIV4 (Alfuria,Fluzone) Influenza Vaccine, 6+MO IM 04/12/2017, 03/15/2016 (QUADRIVALENT W/PRESERVATIVES) MMR 12/28/1991, 05/06/1981 OPV, trivalent, live 01/23/1985, 05/18/1982, 1980, 1980 Pneumococcal 23 valent 10/12/2021 Td (Adult), Adsorbed 07/15/2006, 03/08/1997 Tdap (Adacel,Boostrix) 05/27/2013 Family History Medical History Relation Comments Diabetes Maternal Grandfather Dementia Paternal Grandfather Diabetes Paternal Grandmother Diabetes Relation Status Comments Daughter Alive Father Alive Maternal Grandfather Mother Alive Paternal Grandfather Paternal Grandmother Son 1 Alive Son 2 Alive Social History Tobacco Use Types Packs/Day Years [...] CDT Travel History Travel Start Travel End [place] 12/30/2021 01/12/2022 COVID-19 Exposure Response Date Recorded In the last 10 days, have you been in contact with No / Unsu re 01/18/2022 9:15 AM CDT someone who was confirmed or suspected to have Coronavirus/COVID-19? Last Filed Vital Signs Vital Sign Reading Time Taken Comments Blood Pressure 136/83 01/18/2022 9:22 AM CDT Pulse 87 01/18/2022 9:22 AM CDT Temperature 36.2 ??C (97.2 ??F) 01/18/2022 9:22 AM CDT Respiratory Rate 18 12/14/2021 3:22 PM CDT Oxygen Saturation 98% 12/14/2021 3:22 PM CDT Inhaled Oxygen Concentration - - Weight 84.9 kg (187 lb 3.2 oz) 01/18/2022 9:22 AM CDT Height 182.9 cm (6') 01/18/2022 9:22 AM CDT Body Mass Index 25.39 01/18/2022 9:22 AM CDT Plan of Treatment Upcoming Encounters Date Type Specialty Care Team Description 02/07/2022 Virtual Visit Psychology Raulito Flores tt, [employer] F[employer]ER [address] [place] [address] (Wo rk) 02/15/2022 Ancillary Procedure Neurology Leann Schmitt MD [address] [place] [id number] (Wo rk) 03/05/2022 Virtual Visit Neurology Leann Villagran MD [address] [place] [address] (Wo rk) Health Maintenance Due Date Last Done Comments ADVANCE CARE PLANNING 1980 PREVENTIVE CARE VISIT 1980 INFLUENZA VACCINE (#1) 2022 03/27/2021, 04/12/2017, 03/15/2016, Additional history exists ANNUAL REVIEW OF HM ORDERS 10/12/2022 10/12/2021 Pneumococcal Vaccine: 10/12/2022 10/12/2021 Pediatrics (0 to 5 Years) and At-Risk Patients (6 to 64 Years) (2 - PCV) DTAP/TDAP/TD IMMUNIZATION 05/27/2023 05/27/2013, 07/15/2006 , (7 - Td or Tdap) 03/08/1997, Additional history exists LIPID 10/19/2026 10/19/2021 IPV IMMUNIZATION Completed 01/23/1985, 05/18/1982, 1980, Additional history exists HEPATITIS B IMMUNIZATION Aged Out 02/08/2000 No long er eligible based on patient 's age to complete this topic COVID-19 Vaccine Completed 06/02/2021, 11/08/2020, 10/18/2020 HEPATITIS C SCREENING Completed 10/19/2021 HIV SCREENING Completed 10/19/2021 PHQ-2 (once per calendar Completed 01/19/2022, 10/27/2021, year) 10/27/2021, Additional history exists MENINGITIS IMMUNIZATION Aged Out No longe r eligible based on patient 's age to complete this topic Insurance Payer Benefit Plan / Subscriber ID Effective Phone Address T ype Group Dates [facility] [id number] 2021-Prese [phone] [address] [facility] [facility] HEALTHCARE nt [address] [place] [address] [facility] [id number] 2021-Prese [phone] [place] [address] [phone] [phone] [place], [place] 3 (Work) [id number] JonahDarien Maldonado Personal/Family Self 1980 [phone] [phone] [place], [place] 3 (Work) [id number] Darien Mckenzie Behavioral Self 1980 [phone] [phone] [place], [place] 3 (Work) [id number] Advance Directives For more information, please contact: [phone] Latest Code Status on File Code Status Date Activated Date Inactivated Comments Full Code 10/05/2021 8:31 AM 12/14/2021 2:57 PM Code status determined by: Discussion with patient/ legal de cision maker Full Code 10/01/2021 7:28 PM 10/05/2021 8:31 AM All basic an d advanced life-sustaining interventions ar e performed as appropriate Code status determined by: Discussion with patient/ legal de cision maker Care Teams [place] Relationship Specialty Start Date End Date [facility], [place] Jaja Rowan PCP - General 10/31/[address] [place] [address] [place] [address] Kathi Clark MD Assigned PCP 09/21/[address] [place] [address] [place] [address]
--- OUTSIDE RECORDS SUMMARY | 2022-02-20 12:19 | XMS_ITS | Encounter Summary ---
:1980 Author Organization [place] Address [address] [facility] [place] [address] Care Team Providers Name Role Phone [facility] [phone] Kathi Clark MD Unavailable Reason for Referral Mental Health Outpatient (Priority: 1-2 Weeks) - Referral NOT Required Specialty Diagnoses / Procedures Referred By Contact Refer red To Contact Behavioral Health Diagnoses Adjustment disorder with anxious mood Alcohol use disorder, severe, dependence (H) Raulito Flores M [facility] [address] [place], [place] [address] [address] [place] [address] Phone: [phone] Referral ID Status Reason Start Date Expiration Date Visits V isits Requested Authorized [id number] Referral NOT 11/17/2021 07/14/2022 1 1 Required Reason for Visit Reason Comments Anxiety Alcohol Problem Encounter Details Date Type Department Care Team Description 11/17/2021 Virtual Visit [facility] Raulito Flores disorder with anxious mood (Primary Dx); [facility] THERESE Cain Alcohol use disorder, severe, dependence (H) [address] [facility] [address] [facility], [place] [phone] Social History Tobacco Use Types Packs/Day Years Used Date Never Smoker 0 0 Smokeless Tobacco: Never Used Alcohol Use Standard Drinks/Week Comments Not Currently 0 (1 standard drink = 0.6 oz pure Use to drink 2-3 drinks a day 5 alcohol) days a week. Tina daigley zero Alcohol Habits Answer Date Recorded How [...] CDT Travel History Travel Start Travel End [place] 12/30/2021 01/12/2022 COVID-19 Exposure Response Date Recorded In the last 10 days, have you been in contact with No / Unsu re 10/26/2021 8:29 AM CDT someone who was confirmed or suspected to have Coronavirus/COVID-19? documented as of this encounter Progress Notes Raulito Flores, THERESE - 11/17/2021 9:00 AM CDT Images from the original note were not included. [facility] Counseling Progress Note Patient Name: Darien Mckenzie Date: 11/17/21 Service Type: Individual Session Start Time: 1:30 PM Session End Time: 2:30 PM Session Length: 60 minutes Session #: 3 Attendees: Client attended alone Service Modality: Video Visit: Provider verified identity through the following two step process. Patient provided: Patient was verified at admission/transfer Telemedicine Visit: The patient's condition can be safely assessed and treated via synchronous audioand visual telemedicine encounter. Reason for Telemedicine Visit: Patient has requested telehealth visit Originating Site (Patient Location): Patient's home Distant Site (Provider Location): [facility] Consent: The patient/guardian has verbally consented to: the potential risks and benefits of telemedicine (video visit) versus in person care; bill my insurance or make self-payment for services provided; and responsibility for payment of non-covered services. Patient would like the video invitation sent by: My Chart Mode of Communication:?? Video Conference via Amwell As the provider I attest to compliance with applicable laws and regulations related to telemedicine. DATA Extended Session (53+ minutes): PROLONGED SERVICE IN THE OUTPATIENT SETTING REQUIRING DIRECT ([id number]) PATIENT CONTACT BEYOND THE USUAL SERVICE: - Patient's presenting concerns require more intensive intervention than could be completed within the usual service Interactive Complexity: No Crisis: No Progress Since Last Session (Related to Symptoms / Goals / Homework): Symptoms: Improving Client stated has been sober from alcohol for the past few days, eventhough he his addressing difficulties with his ex-'s behaviors. (November 03, the client had a relapse of three cocktails and was taken by a juliet to Group where he is working with a sponsor.) His fianc??ewill participate to address conjoint facotors affecting the client's functioning. The client's demonstrated improved insight and recognized he may not be able to drink again in the future. His adjustment to his drinking problem provoking a seizure continues to be complex and triggers anxiety. Homework: Completed in session Episode of Care Goals: Minimal progress - ACTION (Actively working towards change); Intervened by reinforcing change plan / affirming steps taken Current / Ongoing Stressors and Concerns: The client returned to individual psychotherapy session to address adjustment disorder with anxiety, following the medical crisis of having a seizure following alcohol detoxification. He stated that he was going to remain sober for the extent of his psychotherapy and for the first stable future. Client reported having alcohol on a couple of nights...I've been lying to Brayan about drinking. He confirmed that he has been drinking intermittently one-two cocktails which included more than oneshot of liquor. He Stated he is struggling with keeping himself sober, despite wanting to. He asked this therapist to coordinate with his physician regarding Gabapentin (he took this in September which helped with his withdrawal and cravings). Therapist encouraged him to seek detox if he continued to havewithdrawal symptoms. He reported shakes and sweats the other day. He indicated he is approved now [facility] to [facility] and [facility] an intensive outpatient program with them as soon as next week. He stated he has to confirm that he is alcohol free from 3 days or more prior to his starting Chemical Dependence treatment. Therapist enquired if there is a psychiatrist in his past, or if he needed a referral for one. He asked to be referred. Relational dynamics include atoning for his choices to his significant other. He was provided a template for how to do this work, and was open to discussing it further, oncehe gets to this point in the coming weeks. Therapist scheduled a session next week. Treatment Objective(s) Addressed in This Session: identify 2-5 strategies to more effectively address stressors identify at least 3 alternative response(s) to aggressive behaviors Intervention: Motivational Interviewing NE Intervention: Expressed Empathy/Understanding, Supported Autonomy, Collaboration, Evocation, [...] Score 18 PROMIS TOTAL - SUBSCORES 35 Knox Suicide Severity Rating Scale (Lifetime/Recent) Knox Suicide Severity Rating (Lifetime/Recent) 10/18/2021 10/27/2021 Q1 [...] Appropriate Eye Contact: Good Psychomotor Behavior: Normal Restless Attitude: Cooperative Pleasant Orientation: All Speech Rate / Production: Normal/ Responsive Talkative Volume: Normal Mood: Anxious Depressed Irritable Sad Affect: Appropriate Thought Content: Clear Rumination Thought Form: Coherent [...] with PCP Client took initiative to contact [facility] treatment centers, and completed evaluation by Chemical Dependency counselor. Recommendation was for him to start IOP for his alcohol use. Tobacco Use: No current tobacco use. Diagnosis: 1. Adjustment disorder with anxious mood 2. Alcohol use disorder, severe, dependence (H) Collateral Reports Completed: Not Applicable PLAN: (Patient Tasks / Therapist Tasks / Other) Previous: Client will use metaphors (alcohol as the other woman) to inform his decisions to drink ornot drink.Client will return to session with his partner later in the week to discuss trust rebuilding.Client will finish paperwork for a release of information to be sent to [facility]. Therapist will resume sessions when client deems it appropriate. Current: Client was approved for [facility], and will start the group program at [facility] in the coming week and a half. He agreed to speak with his physician about his preference to restart Gabapentin. He is attempting to remain alcohol free for the week. Therapist referred to a psychiatrist (priority referral) and was encouraged to keep his next week appointment. 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 PROMIS (reviewed every 90 days): Referral / Collaboration: Was/were discussed and patient will pursue. [facility] treatment services were identified by the client as helpful. He has an appointment for instrument specialist evaluation and referral for their services. [...] agreed to the above plan. THERESE Mcclendon 11/17/21 documented in this encounter Plan of Treatment Upcoming Encounters Date Type Specialty Care Team Description 02/07/2022 Virtual Visit Psychology Raulito Flores tt, THERESE [address] [place] [address] ([place]) 02/15/2022 Ancillary Procedure Neurology Leann Schmitt MD [address] [place] [phone] (Wo rk) 03/05/2022 Virtual Visit Neurology Leann Villagran MD [address] [place] [phone] ([place]) Scheduled Referrals Name Type Priority Associated Diagnoses Order [facility] Adult Mental Health Referral Priority: 1-2 Adjustment disorder Expected: Supervisor [employer] Placing Referral Weeks with anxious mood 11/17/2021 Alcohol use (Approximate), disorder, severe, Expires: dependence (H) 11/17/2022 documented as of this encounter Visit Diagnoses Diagnosis Adjustment disorder with anxious mood - Primary Adjustment disorder with anxiety Alcohol use disorder, severe, dependence (H) documented in this encounter Additional Health Concerns Assessment Noted Time PHQ-9 Depression Total Score: 2 10/27/2021 8:19 AM CDT documented as of this encounter Care Teams Client Services Account Manager Relationship Specialty Start Date End Date Clinic, [place] PCP - General 10/31/[address] [place] [address] [place] [address] Kathi Clark MD Assigned PCP 09/21/[address] [place] [address] [place] [id number] documented as of this encounter
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
--- OUTSIDE RECORDS SUMMARY | 2022-02-20 12:19 | XMS_ITS | Encounter Summary ---
:1980 Author Organization [facility] Address [address] [facility] [place] [address] Care Team Providers Name Role Phone Clinic, [facility] Primary Care Provider [phone] Kathi Clark MD Unavailable Encounter Details Date Type Department Care Team Description 12/14/2021 Travel Social History Tobacco Use Types Packs/Day [...] CDT Travel History Travel Start Travel End [place] 12/30/2021 01/12/2022 COVID-19 Exposure Response Date Recorded In the last 10 days, have you been in contact with No / Unsu re 12/14/2021 2:57 PM CDT someone who was confirmed or suspected to have Coronavirus/COVID-19? documented as of this encounter Plan of Treatment Upcoming Encounters Date Type Specialty Care Team Description 02/07/2022 Virtual Visit Psychology Raulito Flores tt, TAX CONSULTANT [address] [place] [address] (Wo rk) 02/15/2022 Ancillary Procedure Neurology Leann Schmitt MD [address] [place] [phone] (Wo rk) 03/05/2022 Virtual Visit Neurology Leann Villagran MD [address] [place] [phone] (Wo rk) documented as of this encounter Visit Diagnoses Not on filedocumented in this encounter Additional Health Concerns Assessment Noted Time PHQ-9 Depression Total Score: 2 10/27/2021 8:19 AM CDT documented as of this encounter Care Teams Export Clerk Relationship Specialty Start Date End Date Clinic, [facility] Rowan PCP - General 10/31/[address] [place] [address] [place] [address] Kathi Clark MD Assigned PCP 09/21/[address] [place] [address] [place] [address] documented as of this encounter
--- OUTSIDE RECORDS SUMMARY | 2022-02-20 12:19 | XMS_ITS | Encounter Summary ---
:1980 Author Organization [facility] Address [address] [facility] [place] [address] Care Team Providers Name Role Phone Clinic, [facility] Primary Care Provider [phone] Kathi Clark MD Unavailable Encounter Details Date Type Department Care Team Description 11/23/2021 Travel Social History Tobacco Use Types Packs/Day [...] CDT Travel History Travel Start Travel End [place] 12/30/2021 01/12/2022 COVID-19 Exposure Response Date Recorded In the last 10 days, have you been in contact with No / Unsu re 10/26/2021 8:29 AM CDT someone who was confirmed or suspected to have Coronavirus/COVID-19? documented as of this encounter Plan of Treatment Upcoming Encounters Date Type Specialty Care Team Description 02/07/2022 Virtual Visit Psychology Raulito Flores tt, TOP FRAME MAKER [address] [place] [address] (Wo rk) 02/15/2022 Ancillary Procedure Neurology Leann Schmitt MD [address] [place] [phone] (Wo rk) 03/05/2022 Virtual Visit Neurology Leann Villagran MD [address] [place] [phone] (Wo rk) documented as of this encounter Visit Diagnoses Not on filedocumented in this encounter Additional Health Concerns Assessment Noted Time PHQ-9 Depression Total Score: 2 10/27/2021 8:19 AM CDT documented as of this encounter Care Teams Automation Design Engineer Relationship Specialty Start Date End Date Clinic, [facility] Rowan PCP - General 10/31/[address] [place] [address] [place] [address] aKthi Clark MD Assigned PCP 09/21/[address] [place] [address] [place] [address] documented as of this encounter
--- OUTSIDE RECORDS SUMMARY | 2022-02-20 12:19 | XMS_ITS | Encounter Summary ---
:1980 Author Organization [facility] Address [address] [facility] [place] [address] Care Team Providers Name Role [facility] [phone] Kathi Clark MD Unavailable Reason for Visit Reason Onset Date Comments Refill Request 11/23/2021 amLODIPine (NORVASC) 2.5 MG tablet Encounter Details Date Type Department Care Team Description 11/23/2021 Refill [facility] (amLODIPine (NORVASC) [address] 2.[address] tablet) [place] [address] [phone] (Wo rk) Social History Tobacco Use Types [...] CDT Travel History Travel Start Travel End [place] 12/30/2021 01/12/2022 COVID-19 Exposure Response Date Recorded In the last 10 days, have you been in contact with No / Unsu re 10/26/2021 8:29 AM CDT someone who was confirmed or suspected to have Coronavirus/COVID-19? documented as of this encounter Miscellaneous Notes Telephone Encounter - Batsheva Copeland RN - 11/27/2021 3:10 PM CDT Prescription approved per [facility] refill protocol. Batsheva Copeland RN Telephone Encounter - Batsheva Copeland RN - 11/27/2021 2:42 PM CDT Pharmacy was called and verified that amLODIPine (NORVASC) 2.5 MG tablet was received and filled from 11/04/21. Telephone Encounter - Yola Tirado RN - 11/27/2021 8:32 AM CDT This was just prescribed for a 30 day supply 11/04. Triage to call pharmacy to verify that it was received/filled. Telephone Encounter - Martina Moon - 11/23/2021 8:57 AM CDT documented in this encounter Plan of Treatment Upcoming Encounters Date Type Specialty Care Team Description 02/07/2022 Virtual Visit Psychology Raulito Flores tt, WIND ENERGY MECHANIC [address] [place] [address] (Wo rk) 02/15/2022 Ancillary Procedure Neurology Leann Schmitt MD [address] [place] [phone] (Wo rk) 03/05/2022 Virtual Visit Neurology Leann Villagran MD [address] [place] [address] (Wo rk) documented as of this encounter Visit Diagnoses Diagnosis Alcohol dependence with uncomplicated wi thdrawal (H) Other and unspecified alcohol dependence , unspecified drinking behavior documented in this encounter Additional Health Concerns Assessment Noted Time PHQ-9 Depression Total Score: 2 10/27/2021 8:19 AM CDT documented as of this encounter Care Teams End Maker Relationship Specialty Start Date End Date Clinic, [facility] Jaja Rowan PCP - General 10/31/[address] [place] [address] [place] [address] Kathi Clark MD Assigned PCP 09/21/[address] [place] [address] [place] [address] documented as of this encounter
--- OUTSIDE RECORDS SUMMARY | 2022-02-20 12:19 | XMS_ITS | Encounter Summary ---
:1980 Author Organization [facility] Address [address] [facility] [place] [address] Care Team Providers Name Role Phone Clinic, [facility] Primary Care Provider [phone] Kathi Clark MD Unavailable Encounter Details Date Type Department Care Team Description 11/24/2021 Travel Social History Tobacco Use Types Packs/Day [...] CDT Travel History Travel Start Travel End [place] 12/30/2021 01/12/2022 COVID-19 Exposure Response Date Recorded In the last 10 days, have you been in contact with No / Unsu re 10/26/2021 8:29 AM CDT someone who was confirmed or suspected to have Coronavirus/COVID-19? documented as of this encounter Plan of Treatment Upcoming Encounters Date Type Specialty Care Team Description 02/07/2022 Virtual Visit Psychology Raulito Flores tt, SUMMER LAW CLERK [address] [place] [address] (Wo rk) 02/15/2022 Ancillary Procedure Neurology Leann Schmitt MD [address] [place] [phone] (Wo rk) 03/05/2022 Virtual Visit Neurology Leann Villagran MD [address] [place] [address] [phone] (Wo rk) documented as of this encounter Visit Diagnoses Not on filedocumented in this encounter Additional Health Concerns Assessment Noted Time PHQ-9 Depression Total Score: 2 10/27/2021 8:19 AM CDT documented as of this encounter Care Teams Oyster Culturist Relationship Specialty Start Date End Date Clinic, [facility] Jaja Rowan PCP - General 10/31/[address] [place] [address] [place] [address] Kathi Clark MD Assigned PCP 09/21/[address] [place] [address] [place] [address] documented as of this encounter
--- OUTSIDE RECORDS SUMMARY | 2022-02-20 12:19 | XMS_ITS | Encounter Summary ---
:1980 Author Organization [facility] Address [address] [place] [address] Care Team Providers Name Role Phone Clinic, [facility] Primary Care Provider [phone] Kathi Clark MD Unavailable Reason for Visit Reason Comments Ear Fullness Encounter Details Date Type Department Care Team Description 12/14/2021 Emergency [facility] Dina Connor PA-C Dysfunction of [place] Emergency De pt [address] [facility] eustachian tube [address] [place] [id number] [phone] (Wo rk) Social History Tobacco Use Types [...] Sign Reading Time Taken Comments Blood Pressure 127/85 12/14/2021 3:22 PM CDT Pulse 101 12/14/2021 3:22 PM CDT Temperature 36.4 ??C (97.5 ??F) 12/14/2021 3:22 PM CDT Respiratory Rate 18 12/14/2021 3:22 PM CDT Oxygen Saturation 98% 12/14/2021 3:22 PM CDT Inhaled Oxygen Concentration - - Weight 83.9 kg (185 lb) 12/14/2021 3:22 PM CDT Height 185.4 cm (6' 1) 12/14/2021 3:22 PM CDT Body Mass Index 24.41 12/14/2021 3:22 PM CDT documented in this encounter Discharge Instructions AttachmentsThe following attachments cannot be sent through Care Everywhere. Earache Without Infection (Adult) (Rwandan)documented in this encounter Medications at Time of Discharge Medication Sig Dispensed Refills Start Date End Date amLODIPine (NORVASC) 2.5 Take 1 tablet (2.5 90 tablet 2 MG tabletIndications: mg) by mouth daily Alcohol dependence with uncomplicated withdrawal (H) cetirizine (ZYRTEC) 10 Take 10 mg by mouth 0 MG tablet daily as needed for allergies (fall season) fexofenadine-pseudoePHED Take 1 tablet by 0 rine (JENNIFER-D 24) mouth daily as needed 180-240 MG 24 hr tablet for allergies (fall) fluticasone (FLONASE) 50 [place] 1 spray into 0 MCG/ACT nasal spray both nostrils daily as needed for rhinitis or allergies (fall) folic acid (FOLVITE) 1 Take 1 tablet (1 mg) 30 tablet 0 05/ 06/2022 MG tabletIndications: by mouth daily Alcohol dependence with uncomplicated withdrawal (H) ketotifen (ZADITOR) Place 1 drop into 0 0.025 % ophthalmic both eyes 2 times solution daily as needed for itching or dry eyes (fall) Multiple Take 1 chew tab by 0 Vitamins-Minerals mouth daily (MULTIVITAMIN GUMMIES ADULT) CHEW naproxen sodium Take 220 mg by mouth 0 (ANAPROX) 220 MG tablet 3 times daily as needed for moderate pain oxymetazoline (AFRIN) [place] 2 sprays into 0 0.05 % nasal spray both nostrils 2 times daily as needed for congestion (fall) thiamine (B-1) 100 MG Take 1 tablet (100 30 tablet 0 2021 tabletIndications: mg) by mouth daily Alcohol dependence with uncomplicated withdrawal (H) thiamine (B-1) 100 MG Take 1 tablet (100 30 tablet 0 202112/15/2021 tabletIndications: mg) by mouth daily Alcohol dependence with uncomplicated withdrawal (H) documented as of this encounter ED Notes Radha Correa - 12/14/2021 3:55 PM CDT Called [facility] and gave nurse report at 1545 pm and arranged machine pecan picker for pt. Art Beltre RN - 12/14/2021 3:23 PM CDT Bilateral ear fullness/pain for approximately 1 week. Patient currently on amoxicillin for ear infection. Triage Assessment Row Name 12/14/21 1523 Triage Assessment (Adult) Airway WDL WDL Respiratory WDL Respiratory WDL WDL Skin Circulation/Temperature WDL Skin Circulation/Temperature WDL WDL Cardiac WDL Cardiac WDL WDL Peripheral/Neurovascular WDL Peripheral Neurovascular WDL WDL Cognitive/Neuro/Behavioral WDL Cognitive/Neuro/Behavioral WDL WDL Dina Connor PA-C - 12/14/2021 2:57 PM CDT History Chief Complaint Patient presents with ??? Ear Fullness HPI Draien Mckenzie is a 41 year old male who presents to urgent care with concern over bilateral ear discomfort which is present for the last week. Patient reports sensation in the leg he feels like he isunderwater muffled hearing. He did have ear pain at onset which are from improved. He also notes that he has had some ongoing nasal congestion, postnasal drainage, sore throat. He denies any fever, chills, allergies, significant cough, dyspnea, wheezing, vomiting, diarrhea or abdominal complaints. He is currently in inpatient treatment at [facility] and was treated with amoxicillin, Jennifer-D and reports has orders for Flonase however has not yet started. Allergies: Allergies Allergen Reactions ??? Sulfa Drugs Pain ??? Vicodin Hp [Hydrocodone-Acetaminophen] Nausea and Vomiting Problem List: Patient Active Problem List Diagnosis Date Noted ??? Adjustment disorder with anxious mood 11/10/2021 Priority: Medium ??? Uncomplicated alcohol dependence (H) 11/10/2021 Priority: Medium ??? Seizure (H) 10/01/2021 Priority: Medium ??? Hyperglycemia 10/01/2021 Priority: Medium ??? Elevated LFTs 10/01/2021 Priority: Medium Past Medical History: Past Medical History: Diagnosis Date ??? Hypertension 10/01/2021 Past Surgical History: Past Surgical History: Procedure Laterality Date ??? SOFT TISSUE SURGERY 07/15/1999 Nerve repair right index finger Family History: Family History Problem Relation Age of Onset ??? Diabetes Maternal Grandfather ??? Diabetes Paternal Grandmother Diabetes ??? Dementia Paternal Grandfather Social History: Marital Status: Single [1] Social History Tobacco Use ??? Smoking status: Never Smoker ??? Smokeless tobacco: Never Used Substance Use Topics ??? Alcohol use: Not Currently Comment: Use to drink 2-3 drinks a day 5 days a week. Currently zero ??? Drug use: Never Medications: amLODIPine (NORVASC) 2.5 MG tablet cetirizine (ZYRTEC) 10 MG tablet fexofenadine-pseudoePHEDrine (JENNIFER-D 24) 180-240 MG 24 hr tablet fluticasone (FLONASE) 50 MCG/ACT nasal spray folic acid (FOLVITE) 1 MG tablet ketotifen (ZADITOR) 0.025 % ophthalmic solution Multiple Vitamins-Minerals (MULTIVITAMIN GUMMIES ADULT) CHEW naproxen sodium (ANAPROX) 220 MG tablet oxymetazoline (AFRIN) 0.05 % nasal spray thiamine (B-1) 100 MG tablet Review of Systems CONSTITUTIONAL:NEGATIVE for fever, chills, change in weight INTEGUMENTARY/SKIN: NEGATIVE for worrisome rashes, moles or lesions EYES: NEGATIVE for vision changes or irritation ENT/MOUTH: POSITIVE for nasal congestion, post-nasal drainage, sore throat, bilateral ear pressure/fullness and decreased hearing RESP:NEGATIVE for significant cough or SOB GI: NEGATIVE for nausea, vomiting, diarrhea, abdominal pain Physical Exam BP: 127/85 Pulse: 101 Temp: 97.5 ??F (36.4 ??C) Resp: 18 Height: 185.4 cm (6' 1) Weight: 83.9 kg (185 lb) SpO2: 98 % Physical Exam The right TM is minimally injected with serous effusion present The right auditory canal is normal and without drainage, edema or erythema The left TM is is minimally injected with serous effusion present The left auditory canal is normal and without drainage, edema or erythema Oropharynx exam is normal: no lesions, erythema, adenopathy or exudate. GENERAL: no acute distress EYES: EOMI, PERRL, conjunctiva clear NECK: supple, non-tender to palpation, no adenopathy noted RESP: lungs clear to auscultation - no rales, rhonchi or wheezes CV: regular rates and rhythm, normal S1 S2, no murmur noted SKIN: no suspicious lesions or rashes ED Course Procedures Critical Care time: none No results found for this or any previous visit (from the past 24 hour(s)). Medications - No data to display Assessments & Plan (with Medical Decision Making) I have reviewed the nursing notes. I have reviewed the findings, diagnosis, plan and need for follow up with the patient. Discharge Medication List as of 12/14/2021 3:45 PM Final diagnoses: Dysfunction of eustachian tube 41-year-old male presents the urgent care with concern over bilateral ear discomfort still present for the last week. Physical exam findings significant for mild injection of the TMs with serous effusion bilaterally. Symptoms most consistent with eustachian tube dysfunction/serous otitis. No evidence of purulent otitis media. I do not suspect TMJ, mastoiditis. He was discharged back to living situation with instructions for continued symptomatic treatment with OTC antihistamine/decongestant, Flonase. May continue to finish previous antibiotic as prescribed. Follow up with PCP if no improvement in 5-7 days. Worrisome reasons to return to ER/UC sooner discussed. Disclaimer: This note consists of symbols derived from keyboarding, dictation, and/or voice recognition software. As a result, there may be errors in the script that have gone undetected.?? Please consider this when interpreting information found in the chart. 12/14/2021 [facility] Dina Connor PA-C 12/15/21 1750 documented in this encounter Plan of Treatment Upcoming Encounters Date Type Specialty Care Team Description 02/07/2022 Virtual Visit Psychology Raulito Flores tt, [address] [id number] (Wo rk) 02/15/2022 Ancillary Procedure Neurology Leann Schmitt MD [address] [place] [phone] (Wo rk) 03/05/2022 Virtual Visit Neurology Leann Villagran MD [address] [place] [phone] (Wo rk) documented as of this encounter Visit Diagnoses Diagnosis Dysfunction of eustachian tube Dysfunction of Eustachian tube documented in this encounter Additional Health Concerns Assessment Noted Time PHQ-9 Depression Total Score: 2 10/27/2021 8:19 AM CDT documented as of this encounter Care Teams Lathe Set Up Person Relationship Specialty Start Date End Date Clinic, [facility] Jaja Rowan PCP - General 10/31/[address] [place] [address] [place] [address] Kathi Clark MD Assigned PCP 09/21/[address] [place] [address] [place] [id number] documented as of this encounter
--- OUTSIDE RECORDS SUMMARY | 2022-02-20 12:19 | XMS_ITS | Encounter Summary ---
:1980 Author Organization [facility] Address [facility] [address] Care Team Providers Name Role Phone [facility] Primary Care Provider [phone] Kathi Clark MD Unavailable Reason for Visit Reason Onset Date Comments Refill Request 12/13/2021 thiamine (B-1) 100 M G tablet Encounter Details Date Type Department Care Team Description 12/13/2021 Refill [facility] ([facility]) 100 MG [address] [facility] [address] [facility] [place] [phone] (Wo rk) Social History Tobacco Use Types [...] CDT Travel History Travel Start Travel End [place] 12/30/2021 01/12/2022 COVID-19 Exposure Response Date Recorded In the last 10 days, have you been in contact with No / Unsu re 12/14/2021 2:57 PM CDT someone who was confirmed or suspected to have Coronavirus/COVID-19? documented as of this encounter Miscellaneous Notes Telephone Encounter - Nga Conrad RN - 12/14/2021 11:08 AM CDT Routing refill request to provider for review/approval because: Drug not on the [facility] refill protocol. Last OV 10/12/21 Nga Conrad RN documented in this encounter Plan of Treatment Upcoming Encounters Date Type Specialty Care Team Description 02/07/2022 Virtual Visit Psychology Raulito Flores tt, STATIONARY FIREMAN [address] [place] [address] ([place]) 02/15/2022 Ancillary Procedure Neurology Leann Schmitt MD [address] [place] [phone] ([place]) 03/05/2022 Virtual Visit Neurology Leann Villagran MD [address] [place] [phone] ([place]) documented as of this encounter Visit Diagnoses Diagnosis Alcohol dependence with uncomplicated wi thdrawal (H) Other and unspecified alcohol dependence , unspecified drinking behavior documented in this encounter Additional Health Concerns Assessment Noted Time PHQ-9 Depression Total Score: 2 10/27/2021 8:19 AM CDT documented as of this encounter Care Teams Television Mechanic Relationship Specialty Start Date End Date [facility] Jaja Rowan PCP - General 10/31/[address] [place] [address] [place] [address] aKthi Clark MD Assigned PCP 09/21/[address] [place] [address] [place] [id number] documented as of this encounter
--- OUTSIDE RECORDS SUMMARY | 2022-02-20 12:20 | XMS_ITS | Encounter Summary ---
:1980 Author Organization [place] Address [address] [facility] [place] [address] Care Team Providers Name Role Phone [facility] Primary Care Provider [phone] Kathi Clark MD Unavailable Reason for Visit Reason Comments Anxiety Encounter Details Date Type Department Care Team Description 11/06/2021 Virtual Visit [facility] Raulito Flores disorder with anxious mood (Primary Dx); [facility] THERESE Cain Uncomplicated alcohol dependence (H) [address] [place] [address] [address] [place] [address] [phone] Social History Tobacco Use Types Packs/Day Years [...] CDT Travel History Travel Start Travel End [place] 12/30/2021 01/12/2022 COVID-19 Exposure Response Date Recorded In the last 10 days, have you been in contact with No / Unsu re 10/26/2021 8:29 AM CDT someone who was confirmed or suspected to have Coronavirus/COVID-19? documented as of this encounter Progress Notes Raulito Flores, THERESE - 11/06/2021 10:00 AM CDT Images from the original note were not included. [facility] Counseling Progress Note Patient Name: Darien Mckenzie Date: 11/06/21 Service Type: Individual Session Start Time: 10 AM session End Time: 11 AM Session Length: 60 minutes Session #: 2 Attendees: Client attended alone Service Modality: Video Visit: Provider verified identity through the following two step process. Patient provided: Patient was verified at admission/transfer Telemedicine Visit: The patient's condition can be safely assessed and treated via synchronous audioand visual telemedicine encounter. Reason for Telemedicine Visit: Patient has requested telehealth visit Originating Site (Patient Location): Patient's home Distant Site (Provider Location): [facility] Consent: The patient/guardian has verbally consented to: the potential risks and benefits of telemedicine (video visit) versus in person care; bill my insurance or make self-payment for services provided; and responsibility for payment of non-covered services. Patient would like the video invitation sent by: My Chart Mode of Communication:?? Video Conference via [facility] As the provider I attest to compliance with applicable laws and regulations related to telemedicine. DATA Extended Session (53+ minutes): PROLONGED SERVICE IN THE OUTPATIENT SETTING REQUIRING DIRECT ([id number]) PATIENT CONTACT BEYOND THE USUAL SERVICE: - Patient's presenting concerns require more intensive intervention than could be completed within the usual service Interactive Complexity: No Crisis: No Progress Since Last Session (Related to Symptoms / Goals / Homework): Symptoms: Worsening Client stated since last session he had increasing difficulties including a relapse of substance abuse including hiding his drinking. Again on November 03, the client had a relapse ofthree cocktails and was taken by a juliet to Group where he is working with a sponsor. His fianc ??e will joined the next session to address the couple's functioning as it relates to the cleint's symptoms. The client's demonstrated improved insight and recognized he may not be able to drink again in the future. His adjustment to his drinking problem provoking a seizure continues to be complex andtriggers anxiety. Homework: Completed in session Episode of Care Goals: No improvement - PREPARATION (Decided to change - considering how); Intervened by negotiating a change plan and determining options / strategies for behavior change, identifyingtriggers, exploring social supports, and working towards setting a date to begin behavior change Current / Ongoing Stressors and Concerns: The client returned to individual psychotherapy session to address adjustment disorder with anxiety, following the medical crisis of having a seizure following alcohol detoxification. He stated that he was going to remain sober for the extent of his psychotherapy and for the first stable future. Client returned, stating that he is arranging to start intensive outpatient programming through [facility]. He stated that he had another relapse of 3 cocktails 1 evening last week, which resulted in significant discord between him and his significant other Brayan. He stated that he was upset that his ex- withheld the kids from him, leading to the client feeling anger and numb. He stated that he had to call the police and tell them what his ex- was doing again (client has had to make this type of call several times). He states that he decided to drink, and his significant other discovered this and became even more upset than she was previously. Here he discussed trying to cutdown and eliminate his drinking problems. He states that he was called The Giveit100ter because of how much he could drink without having it affect his behaviors. Therapist informed him that this is the sign of tolerance, and client responded favorably to this reframing. Therapist then providedthe client with encouragement to discover a replacement behavior (go for walk/run/golf practice), replacement beverage (Ezekiel Pelagino, tea, lemonade), as well as a response plan (discussing emotions andfinding regulating behaviors/cognitions) for when he becomes emotionally triggered. Therapist identified with the client feelings of powerlessness and numbness as triggers to be added to a list of triggers for initiating use. Therapist encouraged the client to consider specifics about how his partner is also affected by his use, and to highlight that if he is so focused on the 1 ex-, he may put his current relationship into doubt. Therapist then used technique of quitting his drinking to a mistre ss, where any hint of him drinking could trigger a bit trail response from his partner. The client responded favorably to this framing/metaphor. Therapist and client agreed to incorporate his spouse into the next session so as to improve/stabilize the relationship and begin the trust rebuilding process as a relates to the clients anxiety and alcohol challenges. Treatment Objective(s) Addressed in This Session: identify 2-5 strategies to more effectively address stressors identify at least 3 alternative response(s) to aggressive behaviors Intervention: Motivational Interviewing SD Intervention: Expressed Empathy/Understanding, Supported Autonomy, Collaboration, Evocation, [...] Score 18 PROMIS TOTAL - SUBSCORES 35 [place] Suicide Severity Rating Scale (Lifetime/Recent) [place] Suicide Severity Rating (Lifetime/Recent) 10/18/2021 10/27/2021 Q1 [...] Production: Normal/ Responsive Talkative Volume: Normal Mood: Angry Anxious Irritable Sad Affect: Appropriate Thought Content: Clear Rumination Thought Form: Coherent Logical Insight: Good Medication Review: No current psychiatric medications prescribed Medication Compliance: NA Changes in Health Issues: None reported Chemical Use Review: Substance Use: increase in alcohol . Patient reports frequency of use More than he wishes to drink,and secrecy. Reviewed information and resources for treatment and ongoing sobriety Patient assessed present costs and future losses as a result of substance use Reviewed concerns related to health related substance abuse risk Provided encouragement towards sobriety Provided support and affirmation for steps taken towards sobriety Discussed treatment options and encouraged patient to schedule an appointment with PCP Client took initiative to contact [facility] treatment centers, and completed evaluation by Chemical Dependency counselor. Recommendation was for him to start IOP for his alcohol use. Tobacco Use: No current tobacco use. Diagnosis: 1. Adjustment disorder with anxious mood 2. Uncomplicated alcohol dependence (H) Collateral Reports Completed: Not Applicable PLAN: (Patient Tasks / Therapist Tasks / Other) Client will use metaphors to inform his decisions to drink or not drink. Client will return to session with his partner later in the week to discuss trust rebuilding. Client will finish paperwork for a release of information to be sent to [facility]. Therapist will resume sessions when client deems it appropriate. 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 PROMIS (reviewed every 90 days): Referral / Collaboration: Was/were discussed and patient will pursue. [facility] treatment services were identified by the client as helpful. He has an appointment for digital content specialist evaluation and referral for their services. [...] agreed to the above plan. THERESE Mcclendon October 26, 2021 documented in this encounter Plan of Treatment Upcoming Encounters Date Type Specialty Care Team Description 02/07/2022 Virtual Visit Psychology Raulito Flores , THERESE [address] [place] [phone] (Wo rk) 02/15/2022 Ancillary Procedure Neurology Leann Schmitt MD [address] [place] [address] (Wo rk) 03/05/2022 Virtual Visit Neurology Leann Villagran MD [address] [place] [address] (Wo rk) documented as of this encounter Visit Diagnoses Diagnosis Adjustment disorder with anxious mood - Primary Adjustment disorder with anxiety Uncomplicated alcohol dependence (H) Other and unspecified alcohol dependence , unspecified drinking behavior documented in this encounter Additional Health Concerns Assessment Noted Time PHQ-9 Depression Total Score: 2 10/27/2021 8:19 AM CDT documented as of this encounter Care Teams Oil Well Perforator Operator Relationship Specialty Start Date End Date [facility] PCP - General 10/31/[address] [place] [phone] Kathi Clark MD Assigned PCP 09/21/[address] [place] [address] DR ADIA RIVERA, [place] [id number] documented as of this encounter
--- OUTSIDE RECORDS SUMMARY | 2022-02-20 12:20 | XMS_ITS | Encounter Summary ---
:1980 Author Organization [facility] Address [address] [facility] [place] [place] [address] Care Team Providers Name Role Phone No Ref-Primary, Physician Primary Care Provider [phone] Kathi Clark MD Unavailable Encounter Details Date Type Department Care Team Description 10/09/2021 Travel Social History Tobacco Use Types Packs/Day Years Used Date Never Assessed Sex Assigned at Date Recorded Male 10/09/2021 11:09 AM CDT Travel History Travel Start Travel End [place] 12/30/2021 01/12/2022 COVID-19 Exposure Response Date Recorded In the last month, have you been in contact with No / Unsure 10/09/2021 10:01 AM CDT someone who was confirmed or suspected to have Coronavirus / COVID-19? documented as of this encounter Plan of Treatment Upcoming Encounters Date Type Specialty Care Team Description 02/07/2022 Virtual Visit Psychology Raulito Flores tt, PRODUCT PROMOTER [employer] [phone] (Blue rk) 02/15/2022 Ancillary Procedure Neurology Leann Schmitt MD [address] [place], [place] [phone] ([place]) 03/05/2022 Virtual Visit Neurology Leann Villagran MD [address] [place], [place] [phone] (Wo rk) documented as of this encounter Visit Diagnoses Not on filedocumented in this encounter Care Teams Ceramist Relationship Specialty Start Date End Date No Ref-Primary, Physician PCP - General 10/01/21 10/18/21 Kathi Clark MD Assigned PCP 09/21/[address] [place] [address] [place] G[place] [phone] documented as of this encounter
--- OUTSIDE RECORDS SUMMARY | 2022-02-20 12:20 | XMS_ITS | Encounter Summary ---
:1980 Author Organization [place] Address [address] [facility] [place] [address] Care Team Providers Name Role Phone No Ref-Primary, Physician Primary Care Provider [phone] Kathi Clark MD Unavailable Encounter Details Date Type Department Care Team Description 10/12/2021 Travel Social History Tobacco Use Types Packs/Day [...] CDT Travel History Travel Start Travel End [place] 12/30/2021 01/12/2022 COVID-19 Exposure Response Date Recorded In the last month, have you been in contact with No / Unsure 10/12/2021 12:27 PM CDT someone who was confirmed or suspected to have Coronavirus / COVID-19? documented as of this encounter Plan of Treatment Upcoming Encounters Date Type Specialty Care Team Description 02/07/2022 Virtual Visit Psychology Raulito Flores tt, [employer] [address] [place] [address] (Wo rk) 02/15/2022 Ancillary Procedure Neurology Leann Schmitt MD [address] [place] [phone] (Wo rk) 03/05/2022 Virtual Visit Neurology Leann Villagran MD [address] [place] [address] [phone] (Wo rk) documented as of this encounter Visit Diagnoses Not on filedocumented in this encounter Additional Health Concerns Assessment Noted Time PHQ-9 Depression Total Score: 0 10/12/2021 2:01 PM CDT documented as of this encounter Care Teams Pomologist Relationship Specialty Start Date End Date No Ref-Primary, Physician PCP - General 10/01/21 10/18/21 Kathi Clark MD Assigned PCP 09/21/[address] [place] [address] [place] [id number] documented as of this encounter
--- OUTSIDE RECORDS SUMMARY | 2022-02-20 12:20 | XMS_ITS | Encounter Summary ---
:1980 Author Organization [place] Address [address] [place] [address] Care Team Providers Name Role Phone No Ref-Primary, Physician Primary Care Provider [phone] Kathi Clark MD Unavailable Reason for Visit Reason Comments Stress Encounter Details Date Type Department Care Team Description 10/18/2021 Virtual Visit [facility] Raulito Flores disorder Clinics [facility] with anxious mood [address] [place] [address] [address] [facility] (Primary Dx) [place] [phone] Social History Tobacco Use Types Packs/Day Years [...] been in contact with No / Unsure 10/18/2021 7:33 AM CDT someone who was confirmed or suspected to have Coronavirus / COVID-19? documented as of this encounter Progress Notes Raulito Flores LMFT - 10/18/2021 8:00 AM CDT Images from the original note were not included. [facility] Counseling Provider Name: Raulito Flores credentials: THERESE PATIENT'S NAME: Darien Mckenzie PREFERRED NAME: Darien PRONOUNS: He/him/his : 1980 ADDRESS: [address] [place] [address] ACCT. NUMBER: [id number] DATE OF SERVICE: 10/18/21 START TIME: 8 AM END TIME: 8:55 AM PREFERRED PHONE: [phone] May we leave a program related message: Yes SERVICE MODALITY: Video Visit: Provider verified identity through the following two step process. Patient provided: Patient and Patient address Telemedicine Visit: The patient's condition can be safely assessed and treated via synchronous audioand visual telemedicine encounter. Reason for Telemedicine Visit: Patient has requested telehealth visit Originating Site (Patient Location): Patient's home Distant Site (Provider Location): [facility] Outpatient Setting: [place] Consent: The patient/guardian has verbally consented to: the potential risks and benefits of telemedicine (video visit) versus in person care; bill my insurance or make self-payment for services provided; and responsibility for payment of non-covered services. Patient would like the video invitation sent by: My Chart Mode of Communication:?? Video Conference via [facility] [place] [facility] As the provider I attest to compliance with applicable laws and regulations related to telemedicine. UNIVERSAL ADULT Mental Health DIAGNOSTIC ASSESSMENT Identifying Information: Patient is a 41 year old, . The pronoun use throughout this assessment reflects the patient's chosen pronoun. Patient was referred for an assessment by self. Patient attended the session alone. Chief Complaint: The reason for seeking services at this time is: Life. The problem(s) began 10/18/21. 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 Patient has not attempted to resolve these concerns in the past. Social/Family History: Patient reported they grew up in [place], [place]. They were raised by biological parents. Parents stayed .. Patient reported that their childhood was a great upbringing. Patient described their current relationships with family of origin as undisclosed.. The patient describes their cultural background as other. Cultural influences and impact on patient's life structure, values, norms, and healthcare: Locus of Control: . Contextual influences on patient's health include: Individual Factors and Health- Seeking Factors . These factors will be addressedin the Preliminary Treatment plan. Patient identified their preferred language to be Colombian. Patient reported they do not need the assistance of an evp strategy or other support involved in therapy. Patient reported had no significant delays in developmental tasks. Patient's highest education levelwas college graduate. Patient identified the following learning problems: none reported. Modifications will not be used to assist communication in therapy. Patient reports they are able to understand written materials. Patient reported the following relationship history a challenging first marriage leading to a 3-yearprocess to get . Patient's current relationship status is partnered / significant other for the past few years. Patient identified their sexual orientation as heterosexual. Patient reported having three child(eve). Patient identified partner, friends and spouse as part of their support system.Patient identified the quality of these relationships as stable and meaningful. Patient's current living/housing situation involves staying in own home/apartment. They live with his significant other Brayan and their 9-month-old child Leonor and they report that housing is stable. Patient is currently retired. Patient reports their finances are obtained through Savings. Patient does not identify finances as a current stressor. Patient reported that they have been involved with the legal system. He received a DUI 15 years prior to today's session. Patient denies being on probation / parole / under the jurisdiction of the court. Patient's Strengths and Limitations: Patient identified the following strengths or resources that will help them succeed in treatment: commitment to health and well being, community involvement, friends / good social support, intelligence, motivation and strong social skills. Things that may interfere with the patient's success in treatment include: none identified. Assessments: The following assessments were completed by patient for this visit: PHQ2: PHQ-2 (??1998 [employer]) 10/18/2021 Q1: Little interest or pleasure in doing things 0 Q2: Feeling down, depressed or hopeless 0 PHQ-2 Score 0 Q1: Little interest or pleasure in doing things Not at all Q2: Feeling down, depressed or hopeless Not at all PHQ-2 Score 0 PHQ9: PHQ-9 SCORE 10/12/2021 PHQ-9 Total Score 0 GAD2: LETA-2 10/18/2021 Feeling nervous, anxious, or on edge 0 Not being able to stop or control worrying 0 LETA-2 Total Score 0 GAD7: LETA-7 SCORE 10/12/2021 Total Score 0 CAGE-AID: CAGE-AID Total Score 10/18/2021 Total Score 2 Total Score MyChart 2 (A total score of 2 or greater is considered clinically significant) PROMIS 10-Global Health (only subscores and total score): PROMIS-10 Scores Only 10/18/2021 Global Mental Health Score 17 Global Physical Health Score 18 PROMIS TOTAL - SUBSCORES 35 Maury Suicide Severity Rating Scale (Lifetime/Recent) Maury Suicide Severity Rating (Lifetime/Recent) 10/18/2021 1. Wish to be (Lifetime) 0 2. Non-Specific Active Suicidal Thoughts (Lifetime) 0 Actual Attempt (Lifetime) 0 Has subject engaged in non-suicidal self-injurious behavior? (Lifetime) 0 Interrupted Attempts (Lifetime) 0 Aborted or Self-Interrupted Attempt (Lifetime) 0 Preparatory Acts or Behavior (Lifetime) 0 Calculated C-SSRS Risk Score (Lifetime/Recent) No Risk Indicated Personal and Family Medical History: Patient does not report a family history of mental health concerns. Patient reports family history includes Diabetes in his paternal grandmother.. Patient does report Mental Health Diagnosis and/or Treatment. During his previous divorce he saw a counselor named Jarrett Monon, [place]. Patient Patient reported the following previous diagnoses which include(s): None . Patient reported symptoms began over the past couple of weeks. Patienthas received mental health services in the past: Outpatient behavioral health. Psychiatric Hospitalizations: none.Patient denies a history of civil commitment. Currently, patient is not receiving othermental health services. These include none. Patient has had a physical exam to rule out medical causes for current symptoms. Date of last physical exam was within the past year. Symptoms have developed since last physical exam and client was encouraged to follow up with PCP. . The patient has a [place] Primary Care Provider, who is named No Ref-Primary, Physician.. Patient reports the following current medical concerns: Recent seizure disorder was identified and liver enzymes were elevated.. Patient denies any issues with pain.. There are not significant appetite / nutritional concerns / weight changes. Patient does not report a history of head injury / trauma / cognitive impairment (but had a seizure recently).. Patient reports current meds as: No outpatient medications have been marked as taking for the 10/18/21 encounter (Virtual Visit) with Raulito Flores LMFT. Medication Adherence: Patient reports taking. taking prescribed medications as prescribed. Patient Allergies: Allergies Allergen Reactions ??? Sulfa Drugs Pain Medical History: Past Medical History: Diagnosis Date ??? Hypertension 10/01/2021 Current Mental Status Exam: Appearance: Appropriate Eye Contact: Good Psychomotor: Normal Gait / station: no problem Attitude / Demeanor: Cooperative Pleasant Speech Rate / Production: Normal/ Responsive Volume: Normal volume Language: intact Mood: Angry Anxious Ambivalence Affect: Worrisome Thought Content: Clear Thought Process: Coherent Logical Associations: No loosening of associations Insight: External locus Judgment: Intact Orientation: All Attention/concentration: Good Substance Use: Patient did not report a family history of substance use concerns; see medical history section for details. Patient has not received chemical dependency treatment in the past. Patient has not ever beento detox. Patient is not currently receiving any chemical dependency treatment. Patient reported the followingproblems as a result of their substance use: DUI and legal issues. Patient reports using alcohol Rarely times per year and has Drink in excess in the past, but is now 15 days , Drinking several types of alcohol at a time. Patient first started drinking at age Unreported. Patient reported date of last use was September 30, 2021. Patient reports heaviest use was In his early 20s. Patient denies using tobacco. Patient denies using cannabis. Patient denies using caffeine. Patient reports using/abusing the following substance(s). Patient reported no other substance use. Substance Use: blackouts, passing out, hangovers, substance related legal problems, family relationship problems due to substance use and driving under the influence Based on the positive CAGE score and clinical interview there are indications of drug or alcohol abuse. Diagnostic assessment for substance use disorder completed. Therapist did recommend client to reduce use or abstain from alcohol or substance use. Therapist did not recommend structured treatment and or community support (AA, 12 step group, etc.). He was provided MAST assessment yielding possible alcohol problem use, and not indicative of alcohol withdrawal/dependence.. Significant Losses / Trauma / Abuse / Neglect Issues: Patient did not serve in the . There are indications or report of significant loss, trauma, abuse or neglect issues related to: areno indications and client denies any losses, trauma, abuse, or neglect concerns. Concerns for possible neglect are not present. Safety Assessment: Patient denies current homicidal ideation and behaviors. Patient denies current self-injurious ideation and behaviors. Patient Unsafe driving behavior was listed 15 years prior to today associated with substance use. Patient denies any high risk behaviors associated with mental health symptoms. Patient reports the following current concerns for their personal safety: None. Patient reports there are not firearms in the house. There are no firearms in the home.. History of Safety Concerns: Patient denied a history of homicidal ideation. Patient denied a history of personal safety concerns. Patient denied a history of assaultive behaviors. Patient denied a history of sexual assault behaviors. Patient denied a history of risk behaviors associated with substance use. Patient reported a history of substance use associated with mental health symptoms. Patient reports the following protective factors: dedication to family or friends Risk Plan: See Recommendations for Safety and Risk Management Plan Review of Symptoms per patient report: Depression: No symptoms Althea: No Symptoms Psychosis: No Symptoms Anxiety: Anxiety regarding relational conflict, alcohol use worries, and medical/seizure related worries Panic: No symptoms Post Traumatic Stress Disorder: No Symptoms Eating Disorder: No Symptoms ADD / ADHD: No symptoms Conduct Disorder: No symptoms Autism Spectrum Disorder: No symptoms Obsessive Compulsive Disorder: No Symptoms Patient reports the following compulsive behaviors and treatment history: None. Diagnostic Criteria: Adjustment Disorder A. The development of emotional or behavioral symptoms in response to an identifiable stressor(s) occurring within 3 months of the onset of the stressor(s) B. These symptoms or behaviors are clinically significant, as evidenced by one or both of the following: - Marked distress that is out of proportion to the severity/intensity of the stressor (with consideration for external context & culture) - Significant impairment in social, occupational, or other important areas of functioning C. The stress-related disturbance does not meet criteria for another disorder & is not not an exacerbation of another mental disorder D. The symptoms do not represent normal bereavement E. Once the stressor or its consequences have terminated, the symptoms do not persist for more than an additional 6 months * Adjustment Disorder with Anxiety: The predominant manfestations are symptoms such as nervousness,worry, or jitteriness, or, in children separation anxiety from major attachment figures Functional Status: Patient reports the following functional impairments: relationship(s). Nonprogrammatic care: Patient is requesting basic services to address current mental health concerns. Clinical Summary: 1. Reason for assessment: Adjustment related anxiety as a result of relational conflict from excessive drinking, as well as recent diagnosis of seizure condition.. 2. 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 3. Principal DSM5 Diagnoses (Sustained by DSM5 Criteria Listed Above): Adjustment Disorders 309.24 (F43.22) With anxiety. 4. Other Diagnoses that is relevant to services: None 5. Provisional Diagnosis: Substance-Related & Addictive Disorders 291.9 (F10.99) Unspecified Alcohol Related Disorder as evidenced by elevated MAST score above average population. He acknowledged history of blacking out, DUI, drinking more than he intended to, and having changes to liver functioning.. 6. Prognosis: Return to Normal Functioning. 7. Likely consequences of symptoms if not treated: Relational conflict escalation, minimization of affect of health issues and stress level. 8. Client strengths include: committed to sobriety, educated, has a previous history of therapy, intelligent and willing to ask questions . Recommendations: 1. Plan for Safety and Risk Management: Recommended that patient call 911 or go to the local ED should there be a change in any of these risk factors.. Report to child / adult protection services was NA. 2. Patient's identified mental health concerns with a cultural influence will be addressed by Individualization of therapeutic interventions.. 3. Initial Treatment will focus on: Adjustment Difficulties related to: family concerns and Seizure disorder. 4. Resources/Service Plan: [facility] Editor services are not indicated. Modifications to assist communication are not indicated. Additional disability accommodations are not indicated. 5. Collaboration: Collaboration / coordination of treatment will be initiated with the following support professionals: primary care physician. 6. Referrals: The following referral(s) will be initiated: Outpatient [facility]. Next Scheduled Appointment: October 23 at 9 AM. A Release of Information has been obtained for the following: primary care physician. 7. ELIZABETH: ELIZABETH: Discussed the general effects of drugs and alcohol on health and well- being. Provider gave patient printed information about the effects of chemical use on their health and well being. Recommendations: Continue substance abstinence, and if challenges occur, refer for substance use counseling and/or AA groups. 8. Records: These were not available for review at time of assessment. Information in this assessment was obtained from the medical record and provided by patient who is a good historian. Patient will have open access to their mental health medical record. Provider Name/ Credentials: THERESE Mcclendon October 18, 2021 documented in this encounter Plan of Treatment Upcoming Encounters Date Type Specialty Care Team Description 02/07/2022 Virtual Visit Psychology Raulito Flores tt, THERESE [address] [place] [address] ([place]) 02/15/2022 Ancillary Procedure Neurology Leann Schmitt MD [address] [place] [id number] ([place]) 03/05/2022 Virtual Visit Neurology Leann Villagran MD [address] [place] [id number] ([place]) documented as of this encounter Visit Diagnoses Diagnosis Adjustment disorder with anxious mood - Primary Adjustment disorder with anxiety documented in this encounter Additional Health Concerns Assessment Noted Time PHQ-9 Depression Total Score: 0 10/12/2021 2:01 PM CDT documented as of this encounter Care Teams Inspector And Sorter Relationship Specialty Start Date End Date No Ref-Primary, Physician PCP - General 10/01/21 10/18/21 Kathi Clark MD Assigned PCP 09/21/[address] [place] [address] [place] [address] documented as of this encounter
--- OUTSIDE RECORDS SUMMARY | 2022-02-20 12:20 | XMS_ITS | Encounter Summary ---
:1980 Author Organization [facility] Address [address] [facility] [place] [address] Care Team Providers Name Role Phone No Ref-Primary, Physician Primary Care Provider [phone] Kathi Clark MD Unavailable Reason for Visit Reason Comments Seizures Auth/Cert Specialty Diagnoses / Procedures Referred By Contact Refer red To Contact Med Surg Diagnoses Seizure (H) Hyperglycemia Elevated LFTs Seizure (H) Hyperglycemia Elevated LFTs 3 Medical Surgical [address] [place], [place] [address] Phone: Fax: Referral ID Status Reason Start Date Expiration Date Visits Requ ested Visits Authorized [id number] 1 1 Encounter Details Date Type Department Care Team Description 10/01/2021 - [facility] Umair Salinas PA-C [facility] [place] [address] [place] [address] Alcohol dependence with uncomplicated wi thdrawal (H) (Primary Dx); 10/05/2021 Encounter [facility] Ant Rojo MD [address] [place] [address] Seizure (H); Surgical Hyperglycemia; [address] [place] [address] Social History Tobacco Use Types Packs/Day Years Used Date Never Assessed Sex Assigned at Date Recorded Male 10/09/2021 11:09 AM CDT Travel History Travel Start Travel End [place] 12/30/2021 01/12/2022 COVID-19 Exposure Response Date Recorded In the last month, have you been in contact with No / Unsure 10/01/2021 1:30 PM CDT someone who was confirmed or suspected to have Coronavirus / COVID-19? documented as of this encounter Last Filed Vital Signs Vital Sign Reading Time Taken Comments Blood Pressure 146/95 10/05/2021 8:07 AM CDT Pulse 70 10/04/2021 11:48 PM CDT Temperature 37.1 ??C (98.7 ??F) 10/05/2021 8:07 AM CDT Respiratory Rate 18 10/05/2021 8:07 AM CDT Oxygen Saturation 96% 10/04/2021 11:48 PM CDT Inhaled Oxygen Concentration - - Weight 85.1 kg (187 lb 9.6 oz) 10/05/2021 5:50 AM CDT Height 185.4 cm (6' 1) 10/01/2021 7:15 PM CDT Body Mass Index 24.75 10/01/2021 7:15 PM CDT documented in this encounter Discharge Summaries Damion Arango MD - 10/05/2021 10:21 AM CDT [facility] Hospitalist Discharge Summary Date of Admission: 10/01/2021 Date of Discharge: 10/05/2021 Discharging Provider: Damion Arango MD, MD Discharge Service: Hospitalist Service Discharge Diagnoses Alcohol withdrawals complicated with alcohol withdrawal seizure Alcohol abuse, alcohol dependence Alcohol hepatitis Hepatic steatosis Follow-ups Needed After Discharge Follow-up Appointments Follow-up and recommended labs and tests Follow up with primary care provider, Physician No Ref-Primary, within 7 days to evaluate medication change and for hospital follow- up. No follow up labs or test are needed. Unresulted Labs Ordered in the Past 30 Days of this Admission No orders found from 09/01/2021 to 10/02/2021. These results will be followed up by Discharge Disposition Discharged to home Condition at discharge: Stable Hospital Course Continuing service care today. No significant reported events overnight. No recurrent seizure-like activity. Doing well. Stable hemodynamics. Improving blood pressure levels. Tolerating oral diet. Mentation remain at baseline. He is ambulatory with no assistance. I did extensive discussion with her patient regarding importance of complete EtOH cessation He will try his very best to continue with alcohol cessation and willing to seek professional help as well. Earlier discussion regarding restrictions for operating motor vehicle and heavy machinery as per neurology and needs to be optimized and cleared in the outpatient setting. He will be discharged on tapering dose of gabapentin and initiated low-dose amlodipine for optimization of blood pressure levels. I will refer you to excerpts of prior progress notes as listed below for other details of his hospital stay Summary of Stay: Umair Mckenzie is a 41 year old male with a history of alcohol abuse, seasonal allergies, history of COVID-19 infection in August 2021??admitted on 10/01/2021 after a seizure. ??In the emergency department the patient is found of a temperature of 98.6 ??F, heart rate 103, blood pressure 159/107, respiratory rate 16, SPO2 98% on room air. ??Initial lab work revealed phosphorus 1.7, AST/ALT 210/181, A1c 5.9, total bilirubin 1.6, glucose 240. ??The patient had a CT head without contrast that was unremarkable. ??The patient also had an abdominal ultrasound that showed hepatic steatosis. ??Neurology was consulted to see the patient who thought the seizure was likely secondary to alcohol withdrawal. ??The patient admitted to drinking approximately 1 bottle of wine per day, sometimes more and sometimes less. ??His last drink was on 09/30. ??The patient was started on IV fluids, seizure precautions, CIWA protocol, and gabapentin taper. ??The patient was agreeable to see chemical dependency, who were consulted. ??It was recommended to the patient to pursue alcohol abstinence/cessation. ??The patient expressed understanding. The patient was seen by neurology who recommended EEG and MRI brain. The patient had an MRI brain that was unremarkable. The patient was provided with alcohol abstinence resources from chemical dependency, but declined inpatient treatment. ?? Continue current -Alcohol withdrawal treatment and receiving gabapentin pathway - EEG largely normal findings. - MRI negative. Pt provided with CD information. Per mother, pt lost his job last Saturday and does not have insurance. -Appreciate social service input -Spoke with the patient together with his fianc??e at bedside and reiterated importance of complete EtOH cessation of which he is agreeable and stated that he has some plans as outpatient in pursuing complete EtOH cessation -Still with elevated blood pressure levels, decreasing trend of LFTs -Recheck LFTs in the morning Problem List: Acute Seizure - Suspect secondary to etoh withdrawal - Seizure precautions - Appreciate Neurology recommendations - at this point no anti-epileptics needed - No driving for 3 months or until cleared by a Neurologist - this was discussed with the patient and his fiance via phone. ??Pt expressed understanding. ?? Alcohol Withdrawal with Alcohol Withdrawal Seizure Alcohol Abuse - Per pt, he drinks ~1 bottle of wine per day. ??Sometimes more, sometimes less. ??Per fiance, she has found bottles of whiskey hidden around the house. ??Suspect the patient is drinking more alcohol than relayed. - Last drink was 09/30, per pt - CIWA - Gabapentin taper - MV, FA, Thiamine - Pt is agreeable to see CD - plan for consult tomorrow - Alcohol cessation/abstinence was recommended to patient who expressed understanding ?? Hepatic Steatosis Alcoholic Hepatitis-improving LFTs - Suspect alcohol related liver injury - Recommend alcohol cessation - discussed with pt and mother at bedside - Daily CMP ?? Hypophosphatemia - Likely secondary to alcohol abuse - Electrolyte replacement protocol ?? Chronic Medical Problems: Recent Breakthrough Covid 19 Infection??- pt is triple vaccinated Seasonal Allergies ?? DVT Prophylaxis: Pneumatic Compression Devices Code Status: Full Code Diet: Combination Diet Regular Diet Adult Palafox Catheter: Not present Disposition: Expected discharge in in the next 24 hours. Family updated today: Yes Consultations This Hospital Stay NEUROLOGY IP CONSULT CHEMICAL DEPENDENCY IP CONSULT SOCIAL WORK IP CONSULT Code Status Full Code Time Spent on this Encounter I, Damion Arango MD, MD, personally saw the patient today and spent greater than 30 minutes discharging this patient. Damion Arango MD, MD [place] [address] MEDICAL SURGICAL [address] [facility] [address] Physical Exam Vital Signs: Temp: 98.7 ??F (37.1 ??C) Temp src: Oral BP: (!) 146/95 Pulse: 70 Resp: 18 SpO2: 96 % O2 Device: None (Room air) Weight: 187 lbs 9.6 oz HEENT; Atraumatic, normocephalic, pinkish conjuctiva, pupils bilateral reactive Skin: warm and moist, no rashes Lymphatics: no cervical or axillary lymphandenopathy Lungs: equal chest expansion, clear to auscultation, no wheezes, no stridor, no crackles, Heart: normal rate, normal rhythm, no rubs or gallops. Abdomen: normal bowel sounds, no tenderness, no peritoneal signs, no guarding Extremities: no deformities, no edema Neuro; follow commands, alert and oriented x3, spontaneous speech, coherent, moves all extremities spontaneously Psych; no hallucination, euthymic mood, not agitated Primary Care Physician Physician No Ref-Primary Discharge Orders Reason for your hospital stay Admitted for etoh withdrawals, etoh hepatitis Follow-up and recommended labs and tests Follow up with primary care provider, Physician No Ref-Primary, within 7 days to evaluate medication change and for hospital follow- up. No follow up labs or test are needed. Activity Your activity upon discharge: activity as tolerated Full Code Diet Follow this diet upon discharge: Orders Placed This Encounter Combination Diet Regular Diet Adult Significant Results and Procedures Most Recent 3 CBC's:Recent Labs Lab Test 10/03/21 0700 10/02/21 0709 10/01/21 1355 WBC 6.1 5.0 6.2 HGB 13.9 14.2 14.9 MCV 95 94 93 PLT 131* 131* 155 Most Recent 3 BMP's:Recent Labs Lab Test 10/05/21 0548 10/04/21 0547 10/03/21 0700 10/02/21 0709 10/01/21 1355 NA -- -- 136 136 134 POTASSIUM 3.9 4.5 4.3 3.6 3.7 CHLORIDE -- -- 104 103 98 CO2 -- -- 28 27 27 BUN -- -- 9 7 6* CR -- -- 0.79 0.80 0.78 ANIONGAP -- -- 4 6 9 CHRIS -- -- 9.1 9.2 9.7 GLC -- -- 114* 122* 240* Most Recent 2 LFT's:Recent Labs Lab Test 10/05/21 0548 10/03/21 0700 AST 120* 176* ALT 153* 153* ALKPHOS 65 53 BILITOTAL 0.9 1.5* Most Recent 3 INR's:No lab results found. Most Recent D-dimer:No lab results found. Most Recent TSH and T4:No lab results found. Most Recent Hemoglobin A1c:Recent Labs Lab Test 10/01/21 1355 A1C 5.9* Most Recent ABG:No lab results found. Most Recent ESR & CRP:No lab results found., Results for orders placed or performed during the hospital encounter of 10/01/21 CT Head w/o Contrast Narrative EXAM: CT HEAD W/O CONTRAST LOCATION: [facility] DATE/TIME: 10/01/2021 3:18 PM INDICATION: Seizure, nontraumatic (Age >= 41y). COMPARISON: None. TECHNIQUE: Routine CT Head without IV contrast. Multiplanar reformats. Dose reduction techniques were used. FINDINGS: INTRACRANIAL CONTENTS: No intracranial hemorrhage, extraaxial collection, or mass effect. No CT evidence of acute infarct. Normal parenchymal attenuation. Normal ventricles and sulci. Corpus callosum is satisfactory. Position of the cerebellar tonsils is normal. Sella shows no acute abnormality. No sella hemorrhage is evident. The conde-white differentiation is satisfactory. VISUALIZED ORBITS/SINUSES/MASTOIDS: No intraorbital abnormality. Mild mucosal thickening scattered about the paranasal sinuses. No air-fluid levels in the paranasal sinuses. No middle ear or mastoid effusion. BONES/SOFT TISSUES: No fracture of the calvarium or skull base. Overall mineralization is satisfactory. No swelling of the facial or scalp tissues. Impression IMPRESSION: 1. No acute process intracranially. 2. No mass, mass effect or hemorrhage. 3. Nothing for acute or evolving ischemic event. 4. Additional details and description are provided above. US Abdomen Limited Narrative EXAM: US ABDOMEN LIMITED LOCATION: [facility] DATE/TIME: 10/02/2021 4:55 AM INDICATION: Elevation of liver function studies. COMPARISON: None. TECHNIQUE: Limited abdominal ultrasound. FINDINGS: GALLBLADDER: Normal. No gallstones, wall thickening, or pericholecystic fluid. Negative sonographic Randall's sign. BILE DUCTS: No biliary dilatation. The common duct measures 4 mm. LIVER: Hepatic steatosis. No surface contour nodularity. Visualized aspects of the main portal vein patent. RIGHT KIDNEY: 10.3 x 5.5 x 5.1 cm. No hydronephrosis. PANCREAS: The visualized portions are normal. Segmentally visualized aspects of the aorta normal in caliber. No ascites. Impression IMPRESSION: 1. Hepatic steatosis. No surface contour nodularity. 2. Remainder unremarkable. MR Brain w/o & w Contrast Narrative EXAM: MR BRAIN W/O and W CONTRAST LOCATION: [facility] DATE/TIME: 10/02/2021 7:28 PM INDICATION: Seizure, abnormal neuro exam. COMPARISON: Head CT 10/01/2021. CONTRAST: 8.5mL Gadavist. TECHNIQUE: Routine multiplanar multisequence head MRI without and with intravenous contrast. FINDINGS: INTRACRANIAL CONTENTS: No acute or subacute infarct. No mass, acute hemorrhage, or extra-axial fluidcollections. Scattered nonspecific T2/FLAIR hyperintensities within the cerebral white matter most consistent with mild chronic microvascular ischemic change considered to be within normal limits for age. Mild volume loss considered to be within normal limits for age. No hydrocephalus. Normal position of the cerebellar tonsils. No pathologic contrastenhancement. SELLA: No gross abnormality accounting for technique. OSSEOUS STRUCTURES/SOFT TISSUES: Normal marrow signal. The major intracranial vascular flow voids are maintained. ORBITS: No gross abnormality accounting for technique. SINUSES/MASTOIDS: Mild polypoid mucosal thickening scattered about the paranasal sinuses. No middle ear or mastoid effusion. Impression IMPRESSION: 1. Unremarkable MRI of the head. Discharge Medications Current Discharge Medication List START taking these medications Details amLODIPine (NORVASC) 2.5 MG tablet Take 1 tablet (2.5 mg) by mouth daily Qty: 30 tablet, Refills: 0 Associated Diagnoses: Alcohol dependence with uncomplicated withdrawal (H) folic acid (FOLVITE) 1 MG tablet Take 1 tablet (1 mg) by mouth daily Qty: 30 tablet, Refills: 0 Associated Diagnoses: Alcohol dependence with uncomplicated withdrawal (H) !! gabapentin (NEURONTIN) 100 MG capsule Take 1 capsule (100 mg) by mouth every 8 hours for 9 doses Qty: 9 capsule, Refills: 0 Associated Diagnoses: Alcohol dependence with uncomplicated withdrawal (H) !! gabapentin (NEURONTIN) 300 MG capsule Take 1 capsule (300 mg) by mouth every 8 hours for 6 doses Qty: 6 capsule, Refills: 0 Associated Diagnoses: Alcohol dependence with uncomplicated withdrawal (H) !! gabapentin (NEURONTIN) 300 MG capsule Take 2 capsules (600 mg) by mouth every 8 hours for 6 doses Qty: 12 capsule, Refills: 0 Associated Diagnoses: Alcohol dependence with uncomplicated withdrawal (H) thiamine (B-1) 100 MG tablet Take 1 tablet (100 mg) by mouth daily Qty: 30 tablet, Refills: 0 Associated Diagnoses: Alcohol dependence with uncomplicated withdrawal (H) !! - Potential duplicate medications found. Please discuss with provider. CONTINUE these medications which have NOT CHANGED Details cetirizine (ZYRTEC) 10 MG tablet Take 10 mg by mouth daily as needed for allergies (fall) fexofenadine-pseudoePHEDrine (JENNIFER-D 24) 180-240 MG 24 hr tablet Take 1 tablet by mouth daily as needed for allergies (fall) fluticasone (FLONASE) 50 MCG/ACT nasal spray [place] 1 spray into both nostrils daily as needed for rhinitis or allergies (fall) ketotifen (ZADITOR) 0.025 % ophthalmic solution Place 1 drop into both eyes 2 times daily as needed for itching or dry eyes (fall) Multiple Vitamins-Minerals (MULTIVITAMIN GUMMIES ADULT) CHEW Take 1 chew tab by mouth daily naproxen sodium (ANAPROX) 220 MG tablet Take 220 mg by mouth 3 times daily as needed for moderate pain oxymetazoline (AFRIN) 0.05 % nasal spray [place] 2 sprays into both nostrils 2 times daily as needed for congestion (fall) Allergies Allergies Allergen Reactions ??? Sulfa Drugs Pain documented in this encounter Discharge Instructions Discharge Concepcion Jamison MSW - 10/03/2021 1:54 PM CDT Substance Abuse Resources It is recommended that you abstain from all mood altering chemicals. Please contact the sober support hotline ([phone]) as needed; phones are answered 24 hours a day, 7 days a week. To access substance abuse treatment you must have an assessment completed within 30 days of startingany program. Information for this to be completed and to secure funding if you have medical assistance or no insurance can be found through your County's chemical health intake line. If you have private insurance, call the customer service number on the back of your insurance card to find an in-network substance abuse assessment. The ideal provider will be a treatment facility, licensed in the [facility]. For those with [place] Medicaid you will need a Rule 25 assessment: The following are phone numbers for each county. Rule 25 assessments must be completed by your current county of residence. Once approved for funding you can connect with a facility that does Rule 25 assessment. ??? [place] - [phone] ??? [place] - [phone] ??? [place] - [phone] ??? [place] - [phone] ??? [place] - [phone] ??? [place] - [phone] ??? [facility] [phone] ??? [facility] [phone] The following facilities also offer Rule 25/chemical health assessments: ??? [facility] [phone] Sat-Saturday: [address] [facility], [address] Saturday: [address] [facility], [address] M-F assessments (7a-1:45p); Saturday assessments (7:45-10:45a) ??? [facility] [phone] [address] [place], [address] *by appointment only M-W; walk ins available Fridays from 04-15. ??? [facility] [phone] (phone consultation available 04/02) In-person Assessments: [address], [place] [address] [place], [place] [id number] [address] [place] [address], [place] [address] ??? [facility] [phone] [address], [place], [address] *walk inand appointments available by calling ??? [facility] [phone] [address] [place], [address] *by appointment only M-Th ??? [facility] [phone] [place] [address], [address] *walk ins available M-F ??? [facility] [phone] [address] [place], [address] *available by appointments only ??? [facility] [phone] [address] [place], [address] *available by appointment only ??? [facility] ([facility]) [phone] [address] [facility] [address],[place], [address] *Walk in assessments also available M-F starting at 8 am. ??? [facility] [phone] [address] [facility], [place], [address] *available by appointments ??? [facility] [phone] [address] [place], [address] *walk in assessments available M-F starting at 7 am. ??? [facility] [phone] [facility] [address], [place], [address] *Walk in assessments availble M-F starting at 8 am OR ??? [facility] [address] , [place] [address] *Walk in assessments availableM-F starting at 8 am ? ? [facility] [phone] [address] [place] [address] ??? [facility] [address] [place] [address], [address] *availableby appointment only ??? [facility] [phone] [address], [place], [address] ??? [facility] [phone] [place], [address] *available by appointment ??? [facility] [phone] [address] [facility], [place], [address] *walk ins available M-TH from 9-3 ??? [facility] [phone] [place], [address] ??? [facility] [phone] [address] [place] [address] [address] ??? [facility] (Does Rule 25 Assessments) [email or web address]/ [phone] [place] [address], [address], [place] [address] ? ? [facility] [email or web address] [phone], [address], [place] [address] , [address], [place], [place] [address] , [address] [facility], [address], [place], [place] [address] , [address] [facility], [address], ([facility]), [place], [place] [id number] , [address] [place] [address] If you are intoxicated, you may be required to detox at a detox facility before starting treatment. The following are detox facilities that you can self present to. All detox facilities are able to help you complete an assessment/rule 25 prior to discharge if you choose: ??? [facility]: [address] [place], [address] ??? [facility]: [address] [place], [address] ??? [facility]: [address] [place], [place], [address] ??? [facility]: [address], [place], [place], [address] ??? [facility]: [address], [place], [address] 723-[phone] Ways to help cope with sobriety: ??? Take prescribed medicines as scheduled ??? Keep follow-up appointments ??? Talk to others about your concerns ??? Get regular exercise ??? Practice deep breathing skills ??? Eat a healthy diet ??? Use community resources, including hotline numbers, [facility] and support meetings ??? Stay sober and avoid places/people/things associated with substance use ??? Maintain a daily schedule/routine ??? Get at least 7-8 hours of sleep per night ??? Create a list 10--20 healthy activities that you can do that are enjoyable and do not involve substance use ??? Create daily goals (approx. 1-4 goals) per day and work to achieve them throughout the day [facility] ([facility]): [facility] connects people seeking recovery to resources that help foster and sustain long-term recovery. Whether you are seeking resources for treatment, transportation, housing, job training, education, health care or other pathways to recovery, [facility] is a great place to charity radha. . www.alabamaRemitDATA (Great listing of all types of recovery and non-recovery related resources) [facility]: https://www.[employer].org/ Alcoholics Anonymous: 9-363-NFUEPLE HTTP://WWW.AA.ORG/ AA [place] (798-610-7006 or http://a[place].org) AA [place] (810-438-5937 or www.aastpaul.org) Narcotics Anonymous: 229.637.1734 www.nam[place].us. [facility]: [address] [place] [address], [address], [place], [place] [phone] Drop-in Hours: Saturday-Saturday 9-11:30 am. By appointment at other times. [facility] is a drop-in center on the east side of [place] that provides a safe space for individuals who are homeless and have a history of chemical use. Sobriety is not a requirement but drugs and alcohol are not allowed on the property. Non-clients can access drop-in services such as Recovery and Harm Reduction Groups, referrals to case management, community activities, shower facilities, and a pool table. Individuals who are homeless and have chemical health needs may be eligible for enrollment into [facility]'s case management program. Clients and major case detective work together to access benefits, treatment, health care, skilled nursing, and external housing resources. [facility] Chemical Assessment & Referral Unit: [address] [place] [address] Saturday-Saturday 8 am-5 pm Rule 25 assessment and referral for individuals seeking treatment or counseling for chemical dependency. Must be a resident of [facility]. There is no fee for assessment. There is some funding available for treatment programs. [facility]: [address] [place] [address] or [phone] Saturday - Saturday 7 am - 5 pm Daily drop-in Rule 25 assessments and weekly mental health assessments and services. Outpatient chemical dependency treatment (with sober recovery housing), relapse prevention, case management, and employment services. Outpatient and residential treatment for women with children. Specializes in assisting individuals with a history of relapse who face multiple barriers to achieving stable recovery. No charge for most services or services can be billed through insurance. Gender-specific services and treatment for co-occurring substance abuse and mental health concerns offered. documented in this encounter Medications at Time of Discharge Medication Sig Dispensed Refills Start Date End Date cetirizine (ZYRTEC) 10 Take 10 mg by mouth 0 MG tablet daily as needed for allergies (fall season) fexofenadine-pseudoePHED Take 1 tablet by 0 rine (JENNIFER-D 24) mouth daily as 180-240 MG 24 hr tablet needed for allergies (fall) fluticasone (FLONASE) 50 Arroyo 1 spray into 0 MCG/ACT nasal spray both nostrils daily as needed for rhinitis or allergies (fall) ketotifen (ZADITOR) Place 1 drop into 0 0.025 % ophthalmic both eyes 2 times solution daily as needed for itching or dry eyes (fall season) Multiple Take 1 chew tab by 0 Vitamins-Minerals mouth daily (MULTIVITAMIN GUMMIES ADULT) CHEW naproxen sodium Take 220 mg by mouth 0 (ANAPROX) 220 MG tablet 3 times daily as needed for moderate pain oxymetazoline (AFRIN) Arroyo 2 sprays into 0 0.05 % nasal spray both nostrils 2 times daily as needed for congestion (fall season) amLODIPine (NORVASC) 2.5 Take 1 tablet (2.5 30 tablet 0 11/04/2021 MG tabletIndications: mg) by mouth daily Alcohol dependence with uncomplicated withdrawal (H) folic acid (FOLVITE) 1 Take 1 tablet (1 mg) 30 tablet 0 11/04/2021 MG tabletIndications: by mouth daily Alcohol dependence with uncomplicated withdrawal (H) gabapentin (NEURONTIN) Take 1 capsule (100 9 capsule 0 09/1310/12/2021 100 MG mg) by mouth every 8 capsuleIndications: hours for 9 doses Alcohol dependence with uncomplicated withdrawal (H) gabapentin (NEURONTIN) Take 1 capsule (300 6 capsule 0 09/1310/12/2021 300 MG mg) by mouth every 8 capsuleIndications: hours for 6 doses Alcohol dependence with uncomplicated withdrawal (H) gabapentin (NEURONTIN) Take 2 capsules (600 12 capsule 0 10/12/2021 300 MG mg) by mouth every 8 capsuleIndications: hours for 6 doses Alcohol dependence with uncomplicated withdrawal (H) thiamine (B-1) 100 MG Take 1 tablet (100 30 tablet 0 202111/04/2021 tabletIndications: mg) by mouth daily Alcohol dependence with uncomplicated withdrawal (H) documented as of this encounter Progress Notes Ander Duncan RN - 10/04/2021 1:31 PM CDT 1331 text paged , Patient is requesting something for leg pain. Thanks Trinidad Davis - 10/04/2021 11:32 AM CDT SPIRITUAL HEALTH SERVICES Progress Note RH/ Med Surg 3 Follow-up visit with pt Umair. David Schmidt at bedside. Umair feeling hopeful and in good spirits today. Expressed a desire to pursue treatment, though does not feel he is able to be away for 1-2 weeks at this time due to family responsibilities. I validated his understanding that there are multiple paths to pursue treatment. He also stated that he has a plan to find a mental health therapist, which I affirmed and validated. Brayan stated that she just wants him to get better and take care of himself. He is not alone. Umair expressed how much her words meant to him. Trinidad Davis BA Floor Layer Apprentice Scientific Publications Editor Pager: [phone] Damion Arango MD - 10/04/2021 10:51 AM CDT [facility] Progress Note - Hospitalist Service Date of Admission: 10/01/2021 Assessment & Plan Summary of Stay: Umair Mckenzie is a 41 year old male with a history of alcohol abuse, seasonal allergies, history of COVID-19 infection in August 2021??admitted on 10/01/2021 after a seizure. ??In the emergency department the patient is found of a temperature of 98.6 ??F, heart rate 103, blood pressure 159/107, respiratory rate 16, SPO2 98% on room air. ??Initial lab work revealed phosphorus 1.7, AST/ALT 210/181, A1c 5.9, total bilirubin 1.6, glucose 240. ??The patient had a CT head without contrast that was unremarkable. ??The patient also had an abdominal ultrasound that showed hepatic steatosis. ??Neurology was consulted to see the patient who thought the seizure was likely secondary to alcohol withdrawal. ??The patient admitted to drinking approximately 1 bottle of wine per day, sometimes more and sometimes less. ??His last drink was on 09/30. ??The patient was started on IV fluids, seizure precautions, CIWA protocol, and gabapentin taper. ??The patient was agreeable to see chemical dependency, who were consulted. ??It was recommended to the patient to pursue alcohol abstinence/cessation. ??The patient expressed understanding. The patient was seen by neurology who recommended EEG and MRI brain. The patient had an MRI brain that was unremarkable. The patient was provided with alcohol abstinence resources from chemical dependency, but declined inpatient treatment. ?? TODAY'S PLAN: Continue current -Alcohol withdrawal treatment and receiving gabapentin pathway - EEG largely normal findings. - MRI negative. Pt provided with CD information. Per mother, pt lost his job last Saturday and does not have insurance. -Appreciate social service input -Spoke with the patient together with his fianc??e at bedside and reiterated importance of complete EtOH cessation of which he is agreeable and stated that he has some plans as outpatient in pursuing complete EtOH cessation -Still with elevated blood pressure levels, decreasing trend of LFTs -Recheck LFTs in the morning Problem List: Acute Seizure - Suspect secondary to etoh withdrawal - Seizure precautions - Appreciate Neurology recommendations - at this point no anti-epileptics needed - No driving for 3 months or until cleared by a Neurologist - this was discussed with the patient and his fiance via phone. ??Pt expressed understanding. ?? Alcohol Withdrawal with Alcohol Withdrawal Seizure Alcohol Abuse - Per pt, he drinks ~1 bottle of wine per day. ??Sometimes more, sometimes less. ??Per fiance, she has found bottles of whiskey hidden around the house. ??Suspect the patient is drinking more alcohol than relayed. - Last drink was 09/30, per pt - CIWA - Gabapentin taper - MV, FA, Thiamine - Pt is agreeable to see CD - plan for consult tomorrow - Alcohol cessation/abstinence was recommended to patient who expressed understanding ?? Hepatic Steatosis Alcoholic Hepatitis - Suspect alcohol related liver injury - Recommend alcohol cessation - discussed with pt and mother at bedside - Daily CMP ?? Hypophosphatemia - Likely secondary to alcohol abuse - Electrolyte replacement protocol ?? Chronic Medical Problems: Recent Breakthrough Covid 19 Infection??- pt is triple vaccinated Seasonal Allergies ?? DVT Prophylaxis: Pneumatic Compression Devices Code Status: Full Code Diet: Combination Diet Regular Diet Adult Palafox Catheter: Not present Disposition: Expected discharge in in the next 24 hours. Family updated today: Yes Diet: Combination Diet Regular Diet Adult DVT Prophylaxis: Pneumatic Compression Devices and Ambulate every shift Palafox Catheter: Not present Central Lines: None Cardiac Monitoring: ACTIVE order. Indication: Electrolyte Imbalance (24 hours)- Magnesium <1.3 mg/ml; Potassium < =2.8 or > 5.5 mg/ml Code Status: Full Code Disposition Plan Expected Discharge: 10/04/2021 Anticipated discharge location: Awaiting care coordination huddle Delays: The patient's care was discussed with the Patient and Patient's Family. Damion Arango MD, MD Hospitalist Service [facility] Securely message with the [employer] Console (learn more here) Text page via [employer] Paging/Directory Clinically Significant Risk Factors Present on Admission Interval History Assume service care today. Seen and examined. Chart reviewed. Patient is a fianc?? present at bedside as well. Umair is feeling well with no complaints of ongoing nausea, vomiting. He mentioned that he is tolerating oral diet. No recurrence of any seizure-like activity. No reported mental status changes. Data reviewed today: I reviewed all medications, new labs and imaging results over the last 24 hours. I personally reviewed no images or EKG's today. Physical Exam Vital Signs: Temp: 98.6 ??F (37 ??C) Temp src: Oral BP: (!) 148/102 Pulse: 80 Resp: 18 SpO2: 99 % U3Ndfatd: None (Room air) Weight: 188 lbs 12.8 oz HEENT; Atraumatic, normocephalic, pinkish conjuctiva, pupils bilateral reactive Skin: warm and moist, no rashes Lymphatics: no cervical or axillary lymphandenopathy Lungs: equal chest expansion, clear to auscultation, no wheezes, no stridor, no crackles, Heart: normal rate, normal rhythm, no rubs or gallops. Abdomen: normal bowel sounds, no tenderness, no peritoneal signs, no guarding Extremities: no deformities, no edema Neuro; follow commands, alert and oriented x3, spontaneous speech, coherent, moves all extremities spontaneously Psych; no hallucination, euthymic mood, not agitated Data Recent Labs Lab 10/04/21 0547 10/03/21 0700 10/02/21 0709 10/01/21 1355 WBC -- 6.1 5.0 6.2 HGB -- 13.9 14.2 14.9 MCV -- 95 94 93 PLT -- 131* 131* 155 NA -- 136 136 134 POTASSIUM 4.5 4.3 3.6 3.7 CHLORIDE -- 104 103 98 CO2 -- 28 27 27 BUN -- 9 7 6* CR -- 0.79 0.80 0.78 ANIONGAP -- 4 6 9 CHRIS -- 9.1 9.2 9.7 GLC -- 114* 122* 240* ALBUMIN -- 3.6 3.7 4.3 PROTTOTAL -- 7.5 7.6 8.6 BILITOTAL -- 1.5* 1.8* 1.6* ALKPHOS -- 53 50 64 ALT -- 153* 156* 181* AST -- 176* 203* 210* No results found for this or any previous visit (from the past 24 hour(s)). Medications ??? cloNIDine 0.1 mg Oral BID ??? famotidine 20 mg Oral BID ??? folic acid 1 mg Oral Daily ??? [START ON 10/09/2021] gabapentin 100 mg Oral Q8H ??? [START ON 10/07/2021] gabapentin 300 mg Oral Q8H ??? [START ON 10/05/2021] gabapentin 600 mg Oral Q8H ??? gabapentin 900 mg Oral Q8H ??? multivitamin w/minerals 1 tablet Oral Daily ??? sodium chloride (PF) 3 mL Intracatheter Q8H ??? thiamine 100 mg Oral Daily Yelena Lee RN - 10/03/2021 3:00 PM CDT Care from [id number]: Pt is A/O x4, up with SBA, can be a little unsteady on his feet. VSS, last BP 144/92. CIWA scores 2 for minor tremors and anxiety. Tele: SR. ECG completed, results pending. CD and neurology following. Pt is not interested in inpatient treatment at this time. Vasquez Hope DO - 10/03/2021 1:27 PM CDT [facility] Hospitalist Progress Note Name: Umair Mckenzie Provider: Vasquez Hope DO Date of Service: 10/03/2021 Summary of Stay: Umair Mckenzie is a 41 year old male with a history of alcohol abuse, seasonal allergies, history of COVID-19 infection in August 2021 admitted on 10/01/2021 after a seizure. In the emergency department the patient is found of a temperature of 98.6 ??F, heart rate 103, blood pressure 159/107, respiratory rate 16, SPO2 98% on room air. Initial lab work revealed phosphorus 1.7, AST/ALT 210/181, A1c 5.9, total bilirubin 1.6, glucose 240. The patient had a CT head without contrast that was unremarkable. The patient also had an abdominal ultrasound that showed hepatic steatosis. Neurology was consulted to see the patient who thought the seizure was likely secondary to alcohol withdraw al. The patient admitted to drinking approximately 1 bottle of wine per day, sometimes more and sometimes less. His last drink was on 09/30. The patient was started on IV fluids, seizure precautions, CIWA protocol, and gabapentin taper. The patient was agreeable to see chemical dependency, who were consulted. It was recommended to the patient to pursue alcohol abstinence/cessation. The patient expressed understanding. The patient was seen by neurology who recommended EEG and MRI brain. The patient had an MRI brain that was unremarkable. The patient was provided with alcohol abstinence resources fromchemical dependency, but declined inpatient treatment. TODAY'S PLAN: Pt still requiring some ativan and with tremors. No seizures overnight. Appreciate Neurology recommendations. EEG pending. MRI negative. Pt provided with CD information. Per mother, pt lost his job last Saturday and does not have insurance. Will consult for assistance with financial support. Mother at bedside. Patient's mother expressed that at this point the patient is likely to return home to live with his mother as the patient is currently having marital issues. I discussed with the patient and mother that alcohol abstinence is the only course of action going forward. He was encouraged to contact support groups provided by CD, but pt refusing inpatient treatment at this time. We also discussed that his LFTs and Liver US show some damage from alcohol. He expressed understanding. Pt seems intent on resuming alcohol use at just a glass at night. It was expressed that this was a bad idea and any amount of alcohol is not recommended and could lead to another seizure or even . Pt expressed understanding. Plan to wait for EEG and continue CIWA/Gabapentin taper today. Anticipate discharge home tomorrow. I spent 36 minutes speaking with and counseling the patient, as well as his mother at bedside, abouthis condition and treatment course. Problem List: Acute Seizure - Suspect secondary to etoh withdrawal - Seizure precautions - Appreciate Neurology recommendations - at this point no anti-epileptics needed - No driving for 3 months or until cleared by a Neurologist - this was discussed with the patient and his fiance via phone. Pt expressed understanding. ?? Alcohol Withdrawal with Alcohol Withdrawal Seizure Alcohol Abuse - Per pt, he drinks ~1 bottle of wine per day. Sometimes more, sometimes less. Per fiance, she has found bottles of whiskey hidden around the house. Suspect the patient is drinking more alcohol than relayed. - Last drink was 09/30, per pt - CIWA - Gabapentin taper - MV, FA, Thiamine - Pt is agreeable to see CD - plan for consult tomorrow - Alcohol cessation/abstinence was recommended to patient who expressed understanding ?? Hepatic Steatosis Alcoholic Hepatitis - Suspect alcohol related liver injury - Recommend alcohol cessation - discussed with pt and mother at bedside - Daily CMP ?? Hypophosphatemia - Likely secondary to alcohol abuse - Electrolyte replacement protocol ?? Chronic Medical Problems: Recent Breakthrough Covid 19 Infection - pt is triple vaccinated Seasonal Allergies DVT Prophylaxis: Pneumatic Compression Devices Code Status: Full Code Diet: Combination Diet Regular Diet Adult Palafox Catheter: Not present Disposition: Expected discharge in 1-2 days to home. Goals prior to discharge include withdrawal symptoms improved. Family updated today: Yes Interval History Pt seen and examined. Pt admits to still having a tremor. Appetite is good. -Data reviewed today: I personally reviewed all new labs and imaging results over the last 24 hours. Physical Exam Temp: 98 ??F (36.7 ??C) Temp src: Oral BP: (!) 144/92 Pulse: 72 Resp: 18 SpO2: 98 % O2 Device: None (Room air) Vitals: 10/01/21 1915 10/02/21 0500 10/03/21 0425 Weight: 84 kg (185 lb 3.2 oz) 84.7 kg (186 lb 11.2 oz) 84.4 kg (186 lb) Vital Signs with Ranges Temp: [98 ??F (36.7 ??C)-99.4 ??F (37.4 ??C)] 98 ??F (36.7 ??C) Pulse: [69-97] 72 Resp: [16-20] 18 BP: (134-173)/(78-112) 144/92 SpO2: [96 %-98 %] 98 % I/O last 3 completed shifts: In: 240 [P.O.:240] Out: - GENERAL: No apparent distress. Awake, alert, and fully oriented. HEENT: Normocephalic, atraumatic. Extraocular movements intact. CARDIOVASCULAR: Regular rate and rhythm without murmurs or rubs. No S3. PULMONARY: Clear bilaterally. GASTROINTESTINAL: Soft, non-tender, non-distended. Bowel sounds normoactive. EXTREMITIES: No cyanosis or clubbing. No edema. NEUROLOGICAL: CN 2-12 grossly intact, no focal neurological deficits, tremulous. DERMATOLOGICAL: No rash, ulcer, bruising, nor jaundice. Medications ??? cloNIDine 0.1 mg Oral BID ??? folic acid 1 mg Oral Daily ??? [START ON 10/09/2021] gabapentin 100 mg Oral Q8H ??? [START ON 10/07/2021] gabapentin 300 mg Oral Q8H ??? [START ON 10/05/2021] gabapentin 600 mg Oral Q8H ??? gabapentin 900 mg Oral Q8H ??? multivitamin w/minerals 1 tablet Oral Daily ??? sodium chloride (PF) 3 mL Intracatheter Q8H ??? thiamine 100 mg Oral Daily Data Laboratory: Recent Labs Lab 10/03/21 0700 10/02/21 0709 10/01/21 1355 WBC 6.1 5.0 6.2 HGB 13.9 14.2 14.9 HCT 42.3 42.9 43.9 MCV 95 94 93 PLT 131* 131* 155 Recent Labs Lab 10/03/21 0700 10/02/21 0709 10/01/21 1355 NA 136 136 134 POTASSIUM 4.3 3.6 3.7 CHLORIDE 104 103 98 CO2 28 27 27 ANIONGAP 4 6 9 GLC 114* 122* 240* BUN 9 7 6* CR 0.79 0.80 0.78 GFRESTIMATED >90 >90 >90 CHRIS 9.1 9.2 9.7 MAG 2.0 2.2 2.0 PHOS 4.1 4.3 1.7* PROTTOTAL 7.5 7.6 8.6 ALBUMIN 3.6 3.7 4.3 BILITOTAL 1.5* 1.8* 1.6* ALKPHOS 53 50 64 AST 176* 203* 210* ALT 153* 156* 181* No results for input(s): CULT in the last 168 hours. Imaging: Recent Results (from the past 24 hour(s)) MR Brain w/o & w Contrast Narrative EXAM: MR BRAIN W/O and W CONTRAST LOCATION: [facility] DATE/TIME: 10/02/2021 7:28 PM INDICATION: Seizure, abnormal neuro exam. COMPARISON: Head CT 10/01/2021. CONTRAST: 8.5mL Gadavist. TECHNIQUE: Routine multiplanar multisequence head MRI without and with intravenous contrast. FINDINGS: INTRACRANIAL CONTENTS: No acute or subacute infarct. No mass, acute hemorrhage, or extra-axial fluidcollections. Scattered nonspecific T2/FLAIR hyperintensities within the cerebral white matter most consistent with mild chronic microvascular ischemic change considered to be within normal limits for age. Mild volume loss considered to be within normal limits for age. No hydrocephalus. Normal position of the cerebellar tonsils. No pathologic contrastenhancement. SELLA: No gross abnormality accounting for technique. OSSEOUS STRUCTURES/SOFT TISSUES: Normal marrow signal. The major intracranial vascular flow voids are maintained. ORBITS: No gross abnormality accounting for technique. SINUSES/MASTOIDS: Mild polypoid mucosal thickening scattered about the paranasal sinuses. No middle ear or mastoid effusion. Impression IMPRESSION: 1. Unremarkable MRI of the head. Vasquez Hope DO [facility] Hospitalist Do [facility] [place] [address] 10/03/2021 Natan Redmond MD - 10/03/2021 3:01 AM CDT Cross cover note. Paged with blood pressure 1 60-112. Patient is in the hospital for alcohol withdrawal. Will start onclonidine 0.1 mg twice daily. Natan Redmond MD Internal Medicine Hospitalist Pager: [phone] Trinidad Davis - 10/02/2021 3:42 PM CDT SPIRITUAL HEALTH SERVICES SPIRITUAL ASSESSMENT Progress Note RH/ Med Surg 3 PRIMARY FOCUS: ??? Emotional/spiritual/pentecostalism distress ??? Support for coping ILLNESS CIRCUMSTANCES: Saw pt Umair per staff consult request. Assessed emotional/spiritual needs and resources while offering reflective conversation. ??? Context of Serious Illness/Symptom(s) - Patient came in for seizure. Umair stated that doctors are telling him it is from alcohol withdrawal, but Umair is not sure if he agrees with that diagnosis. DISTRESS: ??? Emotional/Existential/Relational Distress - o He stated that he is going through a difficult divorce. o Umair's fiance Brayan is concerned about his drinking and it is causing conflict in their relationship. ??? Spiritual/Taoist Distress - o The patient did not talk much about his spirituality, but stated he grew up Ten[place] and stated hehas disillusionment with the jainism. ??? 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 SPIRIT (Coping): ??? Hoahaoism/Mojgan - Patient did not name spiritism or mojgan as being a source of support for him. ??? Emotional/Existential/Relational Connections - o Umair stated that he enjoys travel. SENSE-MAKING: ??? Goals of Care - Umair stated that he is very restless and anxious to leave the hospital. He may decide to leave AMA. He feels he may feel amenable to cutting down drinking, but does not feel he needs to quit drinking entirely. ??? Meaning/Sense-Making - We explored his thoughts about whether drinking is helpful to him or whether it might hinder him from his goals. We also talked about using this hospital stay as a time of respite from the stress of life. PLAN: SHS remains available for further support as needed. Trinidad Davis BA Floor Layer Apprentice Scientific Publications Editor Pager: [phone] Vasquez Hope, - 10/02/2021 3:20 PM CDT [facility] Hospitalist Progress Note Name: Umair Mckenzie Provider: Vasquez Hope DO Date of Service: 10/02/2021 Summary of Stay: Umair Mckenzie is a 41 year old male with a history of alcohol abuse, seasonal allergies, history of COVID-19 infection in August 2021 admitted on 10/01/2021 after a seizure. In the emergency department the patient is found of a temperature of 98.6 ??F, heart rate 103, blood pressure 159/107, respiratory rate 16, SPO2 98% on room air. Initial lab work revealed phosphorus 1.7, AST/ALT 210/181, A1c 5.9, total bilirubin 1.6, glucose 240. The patient had a CT head without contrast that was unremarkable. The patient also had an abdominal ultrasound that showed hepatic steatosis. Neurology was consulted to see the patient who thought the seizure was likely secondary to alcohol withdraw al. The patient admitted to drinking approximately 1 bottle of wine per day, sometimes more and sometimes less. His last drink was on 09/30. The patient was started on IV fluids, seizure precautions, CIWA protocol, and gabapentin taper. The patient was agreeable to see chemical dependency, who were consulted. It was recommended to the patient to pursue alcohol abstinence/cessation. The patient expressed understanding. TODAY'S PLAN: Pt agreeable to see chemical dependency team. Consulted CD. Continue CIWA protocol andGabapentin taper. Pt is agreeable to stay overnight. Pt is able to make his own decisions at this point. Per [place] Law, pt is unable to drive for 3 months or until cleared by a Neurologist. This was discussed and emphasized with the patient as well as his Ficatrachita Schmidt via phone. Pt gave permission to update his ficatrachita Schmidt via phone. The importance of alcohol cessation/abstinence was discussed with thepatient. If improved etoh withdrawal symptoms and improved CIWA scoring, could potentially dischargehome tomorrow vs Saturday. Appreciate Neurology recommendations. Updated pt's fiance via phone. Allquestions answered. Problem List: Acute Seizure - Suspect secondary to etoh withdrawal - Seizure precautions - Appreciate Neurology recommendations - at this point no anti-epileptics needed - No driving for 3 months or until cleared by a Neurologist - this was discussed with the patient and his fiance via phone. Pt expressed understanding. Alcohol Withdrawal with Alcohol Withdrawal Seizure Alcohol Abuse - Per pt, he drinks ~1 bottle of wine per day. Sometimes more, sometimes less. Per fiance, she has found bottles of whiskey hidden around the house. Suspect the patient is drinking more alcohol than relayed. - Last drink was 09/30, per pt - CIWA - Gabapentin taper - MV, FA, Thiamine - Pt is agreeable to see CD - plan for consult tomorrow - Alcohol cessation/abstinence was recommended to patient who expressed understanding Hepatic Steatosis Alcoholic Hepatitis - Suspect alcohol related liver injury - Recommend alcohol cessation - Daily CMP Hypophosphatemia - Likely secondary to alcohol abuse - Electrolyte replacement protocol Chronic Medical Problems: Recent Breakthrough Covid 19 Infection - pt is triple vaccinated Seasonal Allergies DVT Prophylaxis: Pneumatic Compression Devices Code Status: Full Code Diet: Combination Diet Regular Diet Adult Palafox Catheter: Not present Disposition: Expected discharge in 1-2 days to home. Goals prior to discharge include alcohol withdrawal symptoms improved. Family updated today: Yes Interval History Pt seen and examined. Pt states he is feeling ok. -Data reviewed today: I personally reviewed all new labs and imaging results over the last 24 hours. Physical Exam Temp: 99.1 ??F (37.3 ??C) Temp src: Oral BP: (!) 152/92 Pulse: 90 Resp: 16 SpO2: 98 % O2 Device: None (Room air) Vitals: 10/01/21 1331 10/01/21 1915 10/02/21 0500 Weight: 85 kg (187 lb 6.3 oz) 84 kg (185 lb 3.2 oz) 84.7 kg (186 lb 11.2 oz) Vital Signs with Ranges Temp: [98.3 ??F (36.8 ??C)-99.7 ??F (37.6 ??C)] 99.1 ??F (37.3 ??C) Pulse: [85-109] 90 Resp: [16-22] 16 BP: (152-172)/(90-105) 152/92 SpO2: [94 %-100 %] 98 % I/O last 3 completed shifts: In: 240 [P.O.:240] Out: 750 [Urine:750] GENERAL: No apparent distress. Awake, alert, and fully oriented, diaphoretic. HEENT: Normocephalic, atraumatic. Extraocular movements intact. CARDIOVASCULAR: Regular rate and rhythm without murmurs or rubs. No S3. PULMONARY: Clear bilaterally. GASTROINTESTINAL: Soft, non-tender, non-distended. Bowel sounds normoactive. EXTREMITIES: No cyanosis or clubbing. No edema. NEUROLOGICAL: CN 2-12 grossly intact, no focal neurological deficits, tremulous. DERMATOLOGICAL: No rash, ulcer, bruising, nor jaundice. Medications ??? sodium chloride 100 mL/hr (10/02/21 1444) ??? folic acid 1 mg Oral Daily ??? [START ON 10/09/2021] gabapentin 100 mg Oral Q8H ??? [START ON 10/07/2021] gabapentin 300 mg Oral Q8H ??? [START ON 10/05/2021] gabapentin 600 mg Oral Q8H ??? gabapentin 900 mg Oral Q8H ??? multivitamin w/minerals 1 tablet Oral Daily ??? sodium chloride (PF) 3 mL Intracatheter Q8H ??? sodium chloride (PF) 3 mL Intracatheter Q8H ??? thiamine 100 mg Oral Daily Data Laboratory: Recent Labs Lab 10/02/21 0709 10/01/21 1355 WBC 5.0 6.2 HGB 14.2 14.9 HCT 42.9 43.9 MCV 94 93 PLT 131* 155 Recent Labs Lab 10/02/21 0709 10/01/21 1355 NA 136 134 POTASSIUM 3.6 3.7 CHLORIDE 103 98 CO2 27 27 ANIONGAP 6 9 GLC 122* 240* BUN 7 6* CR 0.80 0.78 GFRESTIMATED >90 >90 CHRIS 9.2 9.7 No results for input(s): CULT in the last 168 hours. Imaging: Recent Results (from the past 24 hour(s)) CT Head w/o Contrast Narrative EXAM: CT HEAD W/O CONTRAST LOCATION: [facility] DATE/TIME: 10/01/2021 3:18 PM INDICATION: Seizure, nontraumatic (Age >= 41y). COMPARISON: None. TECHNIQUE: Routine CT Head without IV contrast. Multiplanar reformats. Dose reduction techniques were used. FINDINGS: INTRACRANIAL CONTENTS: No intracranial hemorrhage, extraaxial collection, or mass effect. No CT evidence of acute infarct. Normal parenchymal attenuation. Normal ventricles and sulci. Corpus callosum is satisfactory. Position of the cerebellar tonsils is normal. Sella shows no acute abnormality. No sella hemorrhage is evident. The conde-white differentiation is satisfactory. VISUALIZED ORBITS/SINUSES/MASTOIDS: No intraorbital abnormality. Mild mucosal thickening scattered about the paranasal sinuses. No air-fluid levels in the paranasal sinuses. No middle ear or mastoid effusion. BONES/SOFT TISSUES: No fracture of the calvarium or skull base. Overall mineralization is satisfactory. No swelling of the facial or scalp tissues. Impression IMPRESSION: 1. No acute process intracranially. 2. No mass, mass effect or hemorrhage. 3. Nothing for acute or evolving ischemic event. 4. Additional details and description are provided above. US Abdomen Limited Narrative EXAM: US ABDOMEN LIMITED LOCATION: [facility] DATE/TIME: 10/02/2021 4:55 AM INDICATION: Elevation of liver function studies. COMPARISON: None. TECHNIQUE: Limited abdominal ultrasound. FINDINGS: GALLBLADDER: Normal. No gallstones, wall thickening, or pericholecystic fluid. Negative sonographic Randall's sign. BILE DUCTS: No biliary dilatation. The common duct measures 4 mm. LIVER: Hepatic steatosis. No surface contour nodularity. Visualized aspects of the main portal vein patent. RIGHT KIDNEY: 10.3 x 5.5 x 5.1 cm. No hydronephrosis. PANCREAS: The visualized portions are normal. Segmentally visualized aspects of the aorta normal in caliber. No ascites. Impression IMPRESSION: 1. Hepatic steatosis. No surface contour nodularity. 2. Remainder unremarkable. Vasquez Hope DO [facility] Hospitalist [facility] [place] [address] 10/02/2021 documented in this encounter H&P Notes Ant Rojo MD - 10/01/2021 5:01 PM CDT [facility] History and Physical Hospitalist Date of Admission: 10/01/2021 Assessment & Plan Umair Mckenzie is a 41 year old male with a past medical history significant for alcohol use disorder who presents with seizure. #Seizure, possibly related to alcohol withdrawal: Patient is visiting from [place] and went to an [employer] concert yesterday. Prior to concert, patient had 3 margaritas. During the concert, the patientdid sweat and needed to sit down periodically feeling dehydrated. He did have some tremors and chills overnight. This AM, pt did go on bourbon tasting. While with family today, the patient was playing with her daughter when he suddenly screamed and seized on the floor. Described as going stiff and shaking of all extremities. He did bite the inside of his cheek. No loss of bowel or bladder function. Seizure reportedly lasted a couple of minutes. He was confused when he came to and was confused for nearly an hour. EMS was called. Blood sugar was within normal limits and blood pressure also within normal limits. -Suspect secondary to alcohol use/early withdrawal. It sounds like he drinks on most days around a bottle of wine, possibly more per fiance. He has elevation of his LFTs in a manner consistent with alcohol use. -ER, patient afebrile, heart rate 90-100. Hypertensive. Saturating well on room air. BMP unremarkable. His LFTs are mildly elevated in a manner consistent with alcohol use. Troponin negative. CBC unremarkable. CT head negative for acute process. Patient was given IV fluid bolus, vitamins, 2 mg Ativan x2. -We will monitor on CIWA protocol with gabapentin given history of fairly significant alcohol use and elevation of LFT's in manner consistent with alcohol use. -Neurology consulted in ER and did not recommend loading with anti-seizure medication at this time given higher suspicion for alcohol withdrawal. -Seizure precautions. -Alcohol cessation advised. Patient does tell me he is not willing to stop drinking at this point #Alcohol use d/o: Mr. Mckenzie admits to drinking around a bottle of wine per day but not every day.He sometimes can drink a bit more. He does not think that he has stopped drinking for more than 3 or4 days at a time since college. He tells me that his ex- did have an alcohol monitoring system that was utilized for 180 days in order for him to see his kids. His fianc??e notes that he drinks most days. They have had discussions in the past about significant alcohol use. -Cessation advised as above. He is not willing to stop drinking wine at this point. #Elevation of LFT's: AST 210, ALT 191, T bili 1.6. Alk phos within normal limits. Elevation suspicious for alcohol induced hepatitis particularly in the setting of seizure. -We will obtain an abdominal ultrasound for evaluation. -Alcohol cessation advised -Monitor LFTs daily #COVID-19: Patient is triple vaccinated. He did have breakthrough Covid-19 in early August when his daughter had mild symptoms. No other recent illness. DVT Prophylaxis: Pneumatic Compression Devices Code Status: Full Code Dispo: Admit to inpatient Ant Rojo MD Primary Care Physician Physician No Ref-Primary Chief Complaint Seizure History is obtained from the patient, patient's fianc??, patient's chart discussed with ER physician History of Present Illness Umair Mckenzie is a 41 year old male with a past medical history of migraines who presents with seizure. Patient is visiting from [place] and went to a concert yesterday. During the concert, the patient did sweat and needed to sit down periodically feeling dehydrated. He did have some tremors and chills overnight. While with family, the patient was playing with her daughter when he suddenly screamed and ceased on the floor. He did bite the inside of his right cheek. No loss of bowel or bladder function. Seizure reportedly lasted a couple of minutes. He was confused when he came to and was confused for nearly an hour. EMS was called. Blood sugar was within normal limits and blood pressure also within normal limits. He did have 3 margaritas prior to the concert on 09/30. He then had 3 small shots of bourbon earlier in the day on 10/01 at a tasting. Mr. Mckenzie admits to drinking around a bottle of wine per day but not every day. He sometimes can drink a bit more. He does not think that he has stopped drinking for more than 3 or 4 days at a time since college. He tells me that his ex- did have an alcohol monitoring system that was utilized for 180 days in order for him to see his kids. His fianc??e notes that he drinks most days. They have had discussions in the past about significant alcohol use. In the ER, patient afebrile, heart rate 90-100. Hypertensive. Saturating well on room air. BMP unremarkable. His LFTs are mildly elevated in a manner consistent with alcohol use. Troponin negative. CBCunremarkable. CT head negative for acute process. Patient was given IV fluid bolus, vitamins, 2 mg Ativan x2. Past Medical History I have reviewed this patient's medical history and updated it with pertinent information if needed. Migraines Prior to Admission Medications Prior to Admission Medications Prescriptions Last Dose Informant Patient Reported? Taking? Multiple Vitamins-Minerals (MULTIVITAMIN GUMMIES ADULT) CHEW Past Week at Unknown time Yes Yes Sig: Take 1 chew tab by mouth daily cetirizine (ZYRTEC) 10 MG tablet More than a month at Unknown time Yes Yes Sig: Take 10 mg by mouth daily as needed for allergies (fall) fexofenadine-pseudoePHEDrine (JENNIFER-D 24) 180-240 MG 24 hr tablet More than a month at Unknown time Yes Yes Sig: Take 1 tablet by mouth daily as needed for allergies (fall) fluticasone (FLONASE) 50 MCG/ACT nasal spray More than a month at Unknown time Yes Yes Sig: Arroyo 1 spray into both nostrils daily as needed for rhinitis or allergies (fall) ketotifen (ZADITOR) 0.025 % ophthalmic solution More than a month at Unknown time Yes Yes Sig: Place 1 drop into both eyes 2 times daily as needed for itching or dry eyes (fall) naproxen sodium (ANAPROX) 220 MG tablet More than a month at Unknown time Yes Yes Sig: Take 220 mg by mouth 3 times daily as needed for moderate pain oxymetazoline (AFRIN) 0.05 % nasal spray More than a month at Unknown time Yes Yes Sig: Arroyo 2 sprays into both nostrils 2 times daily as needed for congestion (fall) Facility-Administered Medications: None Allergies Allergies Allergen Reactions ??? Sulfa Drugs Pain Social History I have reviewed this patient's social history and updated it with pertinent information if needed. Umair Mckenzie He lives with his fianc??e. He uses alcohol as above. Denies any drug use. Family History I have reviewed this patient's family history and updated it with pertinent information if needed. No family history of epilepsy. One of his grandfathers had Parkinson's reportedly. Review of Systems The 10 point Review of Systems is negative other than noted in the HPI or here. Physical Exam Temp: 98.6 ??F (37 ??C) Temp src: Oral BP: (!) 153/108 Pulse: 90 Resp: 16 SpO2: 95 % Vital Signs with Ranges Temp: [98.6 ??F (37 ??C)] 98.6 ??F (37 ??C) Pulse: [87-103] 90 Resp: [16] 16 BP: (150-164)/(96-109) 153/108 SpO2: [95 %-99 %] 95 % 187 lbs 6.26 oz Constitutional: Mildly anxious. Answers appropriately. HEENT: Normocephalic, some superficial cut on the left side of his tongue noted. No elevation of JVD. Respiratory: Nl WOB, Clear bilaterally, No wheezes, no crackles Cardiovascular: Regular, no murmur GI: BS+, NT, ND, no rebound or guarding Lymph/Hematologic: No bruising. No cervical LAD Skin: No rash Musculoskeletal: Nl Tone, No edema noted Neurologic: A&Ox3, Answers appropriately. CNII-XII intact. Moves all extremities. Mild bilateralupper extremity tremor noted. Psychiatric: Mild anxiety noted Data Data reviewed today: I personally reviewed. Recent Labs Lab 10/01/21 1355 WBC 6.2 HGB 14.9 MCV 93 PLT 155 NA 134 POTASSIUM 3.7 CHLORIDE 98 CO2 27 BUN 6* CR 0.78 ANIONGAP 9 CHRIS 9.7 GLC 240* ALBUMIN 4.3 PROTTOTAL 8.6 BILITOTAL 1.6* ALKPHOS 64 ALT 181* AST 210* Recent Results (from the past 24 hour(s)) CT Head w/o Contrast Narrative EXAM: CT HEAD W/O CONTRAST LOCATION: [facility] DATE/TIME: 10/01/2021 3:18 PM INDICATION: Seizure, nontraumatic (Age >= 41y). COMPARISON: None. TECHNIQUE: Routine CT Head without IV contrast. Multiplanar reformats. Dose reduction techniques were used. FINDINGS: INTRACRANIAL CONTENTS: No intracranial hemorrhage, extraaxial collection, or mass effect. No CT evidence of acute infarct. Normal parenchymal attenuation. Normal ventricles and sulci. Corpus callosum is satisfactory. Position of the cerebellar tonsils is normal. Sella shows no acute abnormality. No sella hemorrhage is evident. The conde-white differentiation is satisfactory. VISUALIZED ORBITS/SINUSES/MASTOIDS: No intraorbital abnormality. Mild mucosal thickening scattered about the paranasal sinuses. No air-fluid levels in the paranasal sinuses. No middle ear or mastoid effusion. BONES/SOFT TISSUES: No fracture of the calvarium or skull base. Overall mineralization is satisfactory. No swelling of the facial or scalp tissues. Impression IMPRESSION: 1. No acute process intracranially. 2. No mass, mass effect or hemorrhage. 3. Nothing for acute or evolving ischemic event. 4. Additional details and description are provided above. Clinically Significant Risk Factors Present on Admission documented in this encounter Consult Notes Concepcion Demarco MSW - 10/03/2021 1:56 PM CDTAssociated Order(s): SOCIAL WORK IP CONSULT Care Management Follow Up Length of Stay (days): 2 Expected Discharge Date: 10/04/2021 Concerns to be Addressed: Patient plan of care discussed at interdisciplinary rounds: Yes Anticipated Discharge Disposition: Home Anticipated Discharge Services: Anticipated Discharge DME: Patient/family educated on Medicare website which has current facility and service quality ratings: Education Provided on the Discharge Plan: Patient/Family in Agreement with the Plan: Referrals Placed by CM/SW: Private pay costs discussed: Not applicable Additional Information: Received a consult due to pt not having insurance. Referral to financial counselors completed. Per financial counselors they called several times yesterday and today to the pt's room and called pt's personal phone number listed on the facesheet. Per Chem Dep quality control assessor pt is not interested in inpatient CD treatment. SW placed CD resources in AVS. Concepcion Tomlinson. STEPHY Demarco Callie Mayo LADC - 10/03/2021 10:42 AM CDTAssociated Order(s): CHEMICAL DEPENDENCY IP CONSULT 10/03/2021 Spoke with pt via telephone to offer CD services. Pt reports he would not be interested in attendinginpatient CD treatment at this time. Pt reports he would like to receive CD resources. Email has been sent to pt with CD resources. Pt is able to call Mental Health and Addiction Services Line: and make an appt through [facility] if he would like an evaluation after he is discharged. [facility] [employer]- [email or web address] [email or web address] Services SMART Recovery https://www.smartrecovery.org Alcoholics Anonymous http://www.aa.org Community Drug & Alcohol Support Resources Alcoholics Anonymous 04/02 Phone Line: 597.554.2868 https://[place].org/ https://[place].org/ For additional list of online meetings: http://aa-intergroup.org [place] [facility] [address] [place] [address] http://[facility] center[facility].org ADDY Davidson Email: [email or web address] Edgar Oseguera MD - 10/02/2021 2:47 PM CDTAssociated Order(s): NEUROLOGY IP CONSULT HOSPITAL NEUROLOGY History of the Present Illness: 41 year old male presents with first ever seizure. This occurred yesterday, 10/01/2021. His last memory was making a bottle for his daughter and going into the other room to get diaper supplies. He was giving her the bottle when he apparently had a seizure. She was not harmed fortunately. He remembers being woken up my vision went from black to normal vision. He remembers his sister telling him thatan ambulance was on the way. Notes suggest he was very confused for at least an hour following the event. Notes describe that he was at a concert the previous day and had a few drinks. At the concert he had some profuse sweating and was tremulous with chills the night before the event. No recent illnesses, no drugs. No medication changes. No symptoms at this point other than feeling alittle shaky, which has happened in the past at times. No recent illnesses. He did bite the right side of his tongue. No incontinence. No seizures in the past. No family members with seizures. No weakness or numbness, no vision changes. Review of systems: Constitutional: As mentioned above. Eyes: No blurred vision, eye congestion, ptosis, miosis, or diplopia ENT: +rhiinorrhea is constant at baseline No hearing loss or tinnitus Cardiovascular: No chest pain or palpitation Respiratory: No shortness of breath Gastrointestinal: +I do occasionally throw up due to illness No abdominal pain, diarrhea or constipation Genitourinary: No burning on micturition Musculoskeletal: No muscle ache, neck pain, back pain, arthritis Skin: No rash Neurological: As mentioned above. Psychiatric: No anxiety, depression All other systems negative or as noted in the history of the present illness. No past medical history on file. +Seasonal allergies I'm the allergy valerie No significant past surgical history Social history - alcohol use stated ~15 drinks / week, no tob or illicits No pertinent family history, no history of epilepsy in family Current Facility-Administered Medications: ??? acetaminophen (TYLENOL) tablet 650 mg, 650 mg, Oral, Q6H PRN OR acetaminophen (TYLENOL) Suppository 650 mg, 650 mg, Rectal, Q6H PRN, Ant Rojo MD ??? flumazenil (ROMAZICON) injection 0.2 mg, 0.2 mg, Intravenous, q1 min prn, Ant Rojo MD ??? folic acid (FOLVITE) tablet 1 mg, 1 mg, Oral, Daily, Ant Rojo MD, 1 mg at 10/02/21 0950 ??? [START ON 10/09/2021] gabapentin (NEURONTIN) capsule 100 mg, 100 mg, Oral, Q8H, Ant Rojo MD ??? [START ON 10/07/2021] gabapentin (NEURONTIN) capsule 300 mg, 300 mg, Oral, Q8H, Ant Rojo MD ??? [START ON 10/05/2021] gabapentin (NEURONTIN) capsule 600 mg, 600 mg, Oral, Q8H, Ant Rojo MD ??? gabapentin (NEURONTIN) capsule 900 mg, 900 mg, Oral, Q8H, Ant Rojo MD, 900 mg at 10/02/21 0949 ??? OLANZapine zydis (zyPREXA) ODT half-tab 5-10 mg, 5-10 mg, Oral, Q6H PRN OR haloperidol lactate (HALDOL) injection 2.5-5 mg, 2.5-5 mg, Intravenous, Q6H PRN, Ant Rojo MD ??? lidocaine (LMX4) cream, , Topical, Q1H PRN, Umair Salinas PA-C ??? lidocaine (LMX4) cream, , Topical, Q1H PRN, Ant Rojo MD ??? lidocaine 1 % 0.1-1 mL, 0.1-1 mL, Other, Q1H PRN, Umair Salinas PA-C ??? lidocaine 1 % 0.1-1 mL, 0.1-1 mL, Other, Q1H PRN, Ant Rojo MD ??? LORazepam (ATIVAN) tablet 1-2 mg, 1-2 mg, Oral, Q30 Min PRN OR LORazepam (ATIVAN) injection 1-2 mg, 1-2 mg, Intravenous, Q30 Min PRN, Ant Rojo MD, 2 mg at 10/01/21 193 ??? LORazepam (ATIVAN) injection 2 mg, 2 mg, Intravenous, Q5 Min PRN, Umair Salinas PA-C, 2 mg at 10/01/212034 ??? melatonin tablet 5 mg, 5 mg, Oral, QPM PRN, Ant Rojo MD ??? multivitamin w/minerals (THERA-VIT-M) tablet 1 tablet, 1 tablet, Oral, Daily, Ant Rojo MD, 1tablet at 10/02/21 0949 ??? ondansetron (ZOFRAN-ODT) ODT tab 4 mg, 4 mg, Oral, Q6H PRN OR ondansetron (ZOFRAN) injection4 mg, 4 mg, Intravenous, Q6H PRN, Ant Rojo MD ??? sodium chloride (PF) 0.9% PF flush 3 mL, 3 mL, Intracatheter, Q8H, Umair Salinas PA-C ??? sodium chloride (PF) 0.9% PF flush 3 mL, 3 mL, Intracatheter, q1 min prn, Umair Salinas PA-C ??? sodium chloride (PF) 0.9% PF flush 3 mL, 3 mL, Intracatheter, Q8H, Ant Rojo MD, 3 mL at 10/01/212031 ??? sodium chloride (PF) 0.9% PF flush 3 mL, 3 mL, Intracatheter, q1 min prn, Ant Rojo MD ??? sodium chloride 0.9% infusion, , Intravenous, Continuous, Ant Rojo MD, Last Rate: 100 mL/hr at 10/02/21903, 100 mL/hr at 10/02/21903 ??? thiamine (B-1) tablet 100 mg, 100 mg, Oral, Daily, Ant Rojo MD, 100 mg at 10/02/21 0950 Allergies: Allergies Allergen Reactions ??? Sulfa Drugs Pain Physical Examination: BP (!) 152/92 (BP Location: Right arm) Pulse 90 Temp 99.1 ??F (37.3 ??C) (Oral) Resp 16 Ht 1.854 m (6' 1) Wt 84.7 kg (186 lb 11.2 oz) SpO2 98% BMI 24.63 kg/m?? Body mass index is 24.63 kg/m??. GEN: Alert. NAD. Normal affect. Cooperative. HEENT: Normocephalic / atraumatic NECK/BACK: No meningismus. No significant paraspinal neck or shoulder musculature pain. CV: RRR. No carotid bruits. EXT: No cyanosis. No edema. No erythema. SKIN: No rashes or lesions on exposed skin. NEUROLOGICAL: MENTAL STATUS: Alert and oriented x 3. Thought process and content unremarkable. Follows commands appropriately. Speech fluent. CN: II: Visual bell intact. PERRLA. III, IV, : EOMI. V: Symmetric facial sensation to light touch. VII: Face symmetric. VIII: Hearing symmetric. No nystagmus. IX, X: Symmetric palatal rise. XI: Symmetric shoulder shrug. XII: Tongue midline with symmetric movements. MOTOR: Normal tone. Normal bulk. Mild postural tremor in both arms RIGHT UE: LEFT UE Deltoid 5/5 5/5 Biceps 5/5 5/5 Triceps 5/5 5/5 Wrist Ext 5/5 5/5 Finger abd 5/5 5/5 RIGHT LE: LEFT LE: HF 5/5 5/5 PF 5/5 5 DF /11/16 REFLEXES: RIGHT: LEFT: Biceps / 1/4 Brachioradialis /10 13/ Patellar 2/4 2/4 Achilles 07/18 07/18 Plantar response flexor b/l. No clonus. SENSATION: Light touch intact and symmetric. CEREBELLAR: Normal F-N-F. Normal H-S. No dysmetria. No nystagmus. GAIT: deferred Review of Diagnostics: I personally reviewed and interpreted the following: Results for UMAIR MCKENZIE ( ) as of 10/02/2021 14:46 10/02/2021 07:09 Sodium 136 Potassium 3.6 Chloride 103 Carbon Dioxide 27 Urea Nitrogen 7 Creatinine 0.80 GFR Estimate >90 Calcium 9.2 Anion Gap 6 Magnesium 2.2 Phosphorus 4.3 Albumin 3.7 Protein Total 7.6 Bilirubin Total 1.8 (H) Alkaline Phosphatase 50 ALT 156 (H) AST 203 (H) Vitamin B12: No results found for: B12 Complete Blood Count: Recent Labs Lab Test 10/02/21 0709 10/01/21 1355 WBC 5.0 6.2 RBC 4.56 4.71 HGB 14.2 14.9 HCT 42.9 43.9 PLT 131* 155 LYMPH -- 6 HgA1c: Lab Results Component Value Date A1C 5.9 (H) 10/01/2021 CT Head without Contrast (10/01/2021) IMPRESSION: 1. No acute process intracranially. ?? 2. No mass, mass effect or hemorrhage. ?? 3. Nothing for acute or evolving ischemic event. ?? 4. Additional details and description are provided above. Impression: Mr. Mckenzie is a 41 year old male admitted for his first ever seizure. There is some concern about excessive alcohol use that may have contributed. Though it does not sound like he has significantly reduced his alcohol intake recently. He has no history of withdrawal seizures. Primary team is workingup liver abnormalities, possibly related to alcohol. I will order an MRI and EEG to see if there is any indication for starting an anti-seizure medication. Most of our time was spent discussing seizure precautions at some length. I told him that [place] state law requires that he be seizure-free for at least [address] before [address] again. I also recommended he avoid climbing up heights, using power tools, swimming, or even tub baths unless this were supervised. What is most difficult is what to recommend in the care of his baby daughter. I am not suggesting that he never hold her. But I thought that feeding should be done while he is sitting down. He should never bathe the baby alone. I suggested he let her stay in the crib when he needs to get something from another room rather than carry her with him. His was at bedside so she could hear these recommendations as I read from the [employer]'s website. Essentially, carrying her around should be minimized if possible and holding her is best while seated and lower to the ground. Recommendations: - MRI and EEG ordered - Seizure precautions discussed at length Edgar Oseguera MD (general neurology) pgr [phone] 1. Seizure (H) 2. Hyperglycemia 3. Elevated LFTs documented in this encounter ED Notes Ledy Pastrana RN - 10/01/2021 2:[address] [facility] ED Nurse Handoff Report Umair Mckenzie is a 41 year old male ED Chief complaint: Seizures . ED Diagnosis: Final diagnoses: None Allergies: Allergies Allergen Reactions ??? Sulfa Drugs Pain Code Status: Full Code Activity level - Baseline/Home: Independent. Activity Level - Current: Stand by Assist. Lift room needed: No. Bariatric: No Motor Vehicle Escort Driver Needed: No Isolation: No. Infection: Not Applicable. Vital Signs: Vitals: 10/01/21 1331 BP: (!) 159/107 Pulse: 103 Resp: 16 Temp: 98.6 ??F (37 ??C) TempSrc: Oral SpO2: 98% Weight: 85 kg (187 lb 6.3 oz) Cardiac Rhythm: , Pain level: Patient confused: No. Patient Falls Risk: Yes. Elimination Status: Has voided Patient Report - Initial Complaint: seizure. Focused Assessment: Constitutional: Pleasant. Cooperative. Eyes: Pupils equally round and reactive HENT: No scalp hematoma. No scalp tenderness. No bony step-off or crepitus. No facial bone tenderness or instability. No periorbital ecchymosis or Elizondo signs. Oropharynx is normal with moist mucus membranes. Left-sided tongue laceration, Right-sided oral mucosa lacerations. Cardiovascular: Regular rate and rhythm and without murmurs. Respiratory: Normal respiratory effort, lungs are clear bilaterally. GI: Abdomen is soft, non-tender, non-distended. No guarding, rebound, or rigidity. Musculoskeletal: No midline cervical, thoracic, or lumbar tenderness. Normal painless ROM of the neck. No clavicular tenderness. No upper extremity tenderness. No lower extremity tenderness. Normal ROMof extremities. No tenderness with compression of the rib cage or pelvis. Skin: No rashes. No lacerations or abrasions noted. Neurologic: Cranial nerves II-XII intact, normal cognition, no focal deficits. Tongue fasciculations. Alert and oriented x 3. Normal loan workout officer strength. Normal leg raise. Sensation to light touch intact throughout all 4 extremities. 5/5 strength with dorsiflexion and plantarflexion bilaterally. GCS 15. Bilateral upper extremity tremulousness. Psychiatric: Normal affect. Nursing notes and vital signs reviewed. 13:58 [facility] Erica Details: Behavioral Health (Adult) - General Appearance WDL: WDL Behavior WDL - Behavior WDL: WDL Emotion Mood WDL - Emotion/Mood/Affect WDL: WDL Perceptual State WDL - Perceptual State WDL: .WDL except Thought Process WDL - Thought Process WDL: .WDL except; judgment and insight; thought content Judgment and Insight: denies responsibility Thought Content: denial Chemical Abuse/Addictions - Alcohol: Social; Daily; Binge Last Use:: 09/30/21 Withdrawal Symptoms: Seizures CIWA-Ar (Alcohol Withdrawal Assessment) - Nausea and Vomitin-->no nausea and no vomiting Tremor: 0-->no tremor Paroxysmal Sweats: 0-->no sweat visible Anxiety: 0-->no anxiety, at ease Agitation: 0-->normal activity Tactile Disturbances: 0-->none Auditory Disturbances: 0-->not present Visual Disturbances: 0-->not present Headache, Fullness in Head: 0-->not present Orientation and Clouding of Sensorium: 0-->oriented and can do serial additions Score: 0 13:29 ED Triage Notes Filed Details: Pt had a first time siezure while sitting on the floor with his daughter. Per friend lasted about 1 min. Pt did bit the inside of his lips, no incontinence. Tests Performed: labs, imaging. Abnormal Results: Labs Ordered and Resulted from Time of ED Arrival to Time of ED Departure ROUTINE UA WITH MICROSCOPIC REFLEX TO CULTURE - Abnormal Result Value Color Urine Yellow Appearance Urine Clear Glucose Urine >=1000 (*) Bilirubin Urine Negative Ketones Urine 10 (*) Specific [place] Urine 1.023 Blood Urine Negative pH Urine 7.5 (*) Protein Albumin Urine 100 (*) Urobilinogen Urine Normal Nitrite Urine Negative Leukocyte Esterase Urine Negative Mucus Urine Present (*) RBC Urine 1 WBC Urine 1 Squamous Epithelials Urine <1 COMPREHENSIVE METABOLIC PANEL - Abnormal Sodium 134 Potassium 3.7 Chloride 98 Carbon Dioxide (CO2) 27 Anion Gap 9 Urea Nitrogen 6 (*) Creatinine 0.78 Calcium 9.7 Glucose 240 (*) Alkaline Phosphatase 64 AST 210 (*) ALT 181 (*) Protein Total 8.6 Albumin 4.3 Bilirubin Total 1.6 (*) GFR Estimate >90 CBC WITH PLATELETS AND DIFFERENTIAL - Abnormal WBC Count 6.2 RBC Count 4.71 Hemoglobin 14.9 Hematocrit 43.9 MCV 93 MCH 31.6 MCHC 33.9 RDW 12.9 Platelet Count 155 % Neutrophils 81 % Lymphocytes 6 % Monocytes 12 % Eosinophils 0 % Basophils 1 % Immature Granulocytes 0 NRBCs per 100 WBC 0 Absolute Neutrophils 5.0 Absolute Lymphocytes 0.4 (*) Absolute Monocytes 0.8 Absolute Eosinophils 0.0 Absolute Basophils 0.1 Absolute Immature Granulocytes 0.0 Absolute NRBCs 0.0 TROPONIN I - Normal Troponin I High Sensitivity 6 GLUCOSE MONITOR NURSING POCT COVID-19 VIRUS (CORONAVIRUS) BY PCR HEMOGLOBIN A1C CT Head w/o Contrast (Results Pending) . Treatments provided: frequent VS Family Comments: spouse at bedside OBS brochure/video discussed/provided to patient: No ED Medications: Medications lidocaine 1 % 0.1-1 mL (has no administration in time range) lidocaine (LMX4) cream (has no administration in time range) sodium chloride (PF) 0.9% PF flush 3 mL (has no administration in time range) sodium chloride (PF) 0.9% PF flush 3 mL (has no administration in time range) LORazepam (ATIVAN) injection 2 mg (has no administration in time range) 0.9% sodium chloride BOLUS (1,000 mLs Intravenous New Bag 10/01/21 6704) Drips infusing: No For the majority of the shift, the patient's behavior Green. Interventions performed were n/a. Sepsis treatment initiated: No Patient tested for COVID 19 prior to admission: YES ED Nurse Name/Phone Number: Shannon Vargas RN, 2:42 PM RECEIVING UNIT ED HANDOFF REVIEW Above ED Nurse Handoff Report was reviewed: yes Reviewed by: Ledy Pastrana RN on October 01, 2021 at 6:40 PM Did you vocera the ED RN: Saulo Reyes RN - 10/01/2021 1:29 PM CDT Pt had a first time siezure while sitting on the floor with his daughter. Per friend lasted about 1 min. Pt did bit the inside of his lips, no incontinence. Umair Salinas PA-C - 10/01/2021 1:26 PM CDT History Chief Complaint: Seizures The history is provided by the patient and the spouse. Umair Mckenzie is a 41 year old male who presents with seizures. The patient's reports that the two drove here from [place] for a concert yesterday, and prior to the concert had dinner and three drinks. During the concert, the patient began profusely sweating and needed to sit down periodically, possibly due to dehydration. On the way back to the hotel, he had tremors and chills, and he did not sleep well. Today at a family gathering, the patient was playing with their daughter and suddenly let out a yelp and began seizing on the floor. It seemed like he was having difficulty breathing, and blood was coming from the mouth because he bit the inside of his right cheek. No urinary incontinence. The seizure lasted a couple minutes. Once he came to, he was confused for nearly an hour, and still does not understand or remember what happened. He had eaten and used the bathroom shortly before the incident. When EMS arrived, blood sugar was around 187 and blood pressure was 130s/80. The patient does not remember the incident and has no history of seizures. He states he is having 6-7/10 pain in his calves, but no other pain. He denies neck, back, arm, or abdominal pain. No headaches, vision changes, vomiting, or diarrhea. He states that tremors are intermittent and fleeting, occurat no specific time of day, and are primarily with his right arm. The patient adds that he has a history of migraines when he was in high school, and these resolved within three months of seeing a chiropractor. There is discrepancy between the patient and his with his alcohol use. He states that he does not drink every day, but will frequently have drinks at lunch, after work, and at dinner, and occasionally finishes a bottle of wine by himself. No alcohol use today. Review of Systems Eyes: Negative for visual disturbance. Gastrointestinal: Negative for abdominal pain, diarrhea and vomiting. Musculoskeletal: Positive for myalgias. Negative for back pain and neck pain. Skin: Positive for wound. Neurological: Positive for tremors and seizures. Negative for headaches. All other systems reviewed and are negative. Allergies: Sulfa Drugs Medications: None. Past Medical History: Migraines Social History: Presents with Alcohol use Covid vaccinated x3 Physical Exam Patient Vitals for the past 24 hrs: BP Temp Temp src Pulse Resp SpO2 Weight 10/01/21 1331 (!) 159/107 98.6 ??F (37 ??C) Oral 103 16 98 % 85 kg (187 lb 6.3 oz) Physical Exam Constitutional: Pleasant. Cooperative. Eyes: Pupils equally round and reactive HENT: No scalp hematoma. No scalp tenderness. No bony step-off or crepitus. No facial bone tenderness or instability. No periorbital ecchymosis or Elizondo signs. Oropharynx is normal with moist mucus membranes. Left-sided tongue laceration, Right-sided oral mucosa lacerations. Cardiovascular: Regular rate and rhythm and without murmurs. Respiratory: Normal respiratory effort, lungs are clear bilaterally. GI: Abdomen is soft, non-tender, non-distended. No guarding, rebound, or rigidity. Musculoskeletal: No midline cervical, thoracic, or lumbar tenderness. Normal painless ROM of the neck. No clavicular tenderness. No upper extremity tenderness. No lower extremity tenderness. Normal ROMof extremities. No tenderness with compression of the rib cage or pelvis. Skin: No rashes. No lacerations or abrasions noted. Neurologic: Cranial nerves II-XII intact, normal cognition, no focal deficits. Tongue fasciculations. Alert and oriented x 3. Normal loan workout officer strength. Normal leg raise. Sensation to light touch intact throughout all 4 extremities. 5/5 strength with dorsiflexion and plantarflexion bilaterally. GCS 15. Bilateral upper extremity tremulousness. Psychiatric: Normal affect. Nursing notes and vital signs reviewed. Emergency Department Course ECG ECG obtained at 1426, ECG read at 1432 Normal sinus rhythm No prior ECG for comparison. Rate 90 bpm. IA interval 146 ms. QRS duration 94 ms. QT/QTc 370/452 ms. P-R-T axes 68 47 61. Imaging: CT Head w/o Contrast Final Result IMPRESSION: 1. No acute process intracranially. 2. No mass, mass effect or hemorrhage. 3. Nothing for acute or evolving ischemic event. 4. Additional details and description are provided above. Report per radiology Laboratory: Labs Ordered and Resulted from Time of ED Arrival to Time of ED Departure ROUTINE UA WITH MICROSCOPIC REFLEX TO CULTURE - Abnormal Result Value Color Urine Yellow Appearance Urine Clear Glucose Urine >=1000 (*) Bilirubin Urine Negative Ketones Urine 10 (*) Specific [place] Urine 1.023 Blood Urine Negative pH Urine 7.5 (*) Protein Albumin Urine 100 (*) Urobilinogen Urine Normal Nitrite Urine Negative Leukocyte Esterase Urine Negative Mucus Urine Present (*) RBC Urine 1 WBC Urine 1 Squamous Epithelials Urine <1 COMPREHENSIVE METABOLIC PANEL - Abnormal Sodium 134 Potassium 3.7 Chloride 98 Carbon Dioxide (CO2) 27 Anion Gap 9 Urea Nitrogen 6 (*) Creatinine 0.78 Calcium 9.7 Glucose 240 (*) Alkaline Phosphatase 64 AST 210 (*) ALT 181 (*) Protein Total 8.6 Albumin 4.3 Bilirubin Total 1.6 (*) GFR Estimate >90 CBC WITH PLATELETS AND DIFFERENTIAL - Abnormal WBC Count 6.2 RBC Count 4.71 Hemoglobin 14.9 Hematocrit 43.9 MCV 93 MCH 31.6 MCHC 33.9 RDW 12.9 Platelet Count 155 % Neutrophils 81 % Lymphocytes 6 % Monocytes 12 % Eosinophils 0 % Basophils 1 % Immature Granulocytes 0 NRBCs per 100 WBC 0 Absolute Neutrophils 5.0 Absolute Lymphocytes 0.4 (*) Absolute Monocytes 0.8 Absolute Eosinophils 0.0 Absolute Basophils 0.1 Absolute Immature Granulocytes 0.0 Absolute NRBCs 0.0 HEMOGLOBIN A1C - Abnormal Hemoglobin A1C 5.9 (*) TROPONIN I - Normal Troponin I High Sensitivity 6 COVID-19 VIRUS (CORONAVIRUS) BY PCR - Normal SARS CoV2 PCR Negative GLUCOSE MONITOR NURSING POCT Emergency Department Course: Reviewed: I reviewed nursing notes, vitals, past medical history and MIIC Assessments: 1413 I obtained history and examined the patient as noted above. 1614 I rechecked the patient and explained findings. Interventions: Medications lidocaine 1 % 0.1-1 mL (has no administration in time range) lidocaine (LMX4) cream (has no administration in time range) sodium chloride (PF) 0.9% PF flush 3 mL (3 mLs Intracatheter Not Given 10/01/211835) sodium chloride (PF) 0.9% PF flush 3 mL (has no administration in time range) LORazepam (ATIVAN) injection 2 mg (2 mg Intravenous Given 10/01/211833) 0.9% sodium chloride BOLUS (0 mLs Intravenous Stopped 10/01/211612) thiamine (B-1) tablet 100 mg (100 mg Oral Given 10/01/211838) folic acid (FOLVITE) tablet 1 mg (1 mg Oral Given 10/01/211833) multivitamin w/minerals (THERA-VIT-M) tablet 1 tablet (1 tablet Oral Given 10/01/211833) Consults: [address] Rojo from hospitalist service. [address] Ramirez from neurology. Disposition: The patient was admitted to the hospital under the care of Dr. Rojo. Impression & Plan [facility] Diagnoses: None Medical Decision Making: Umair Mckenzie is a 41 year old male who presents to the ED for evaluation after a witnessed seizure at home while down on the floor. Patient does have tongue lacerations, had post-ictal phase. No seizure history. Patient does not note marked alcohol intake, although notes that he can on some nights finish an entire bottle of wine himself. He has no history of withdrawal. does note that she hasbeen helping him recently to cut down on his alcohol intake. See HPI as above for additional details. Vitals and physical exam as above. DDx was broad and included CVA, ICH, meningitis, alcohol withdrawal, syncope, epileptic seizure, arrhythmia, among others. I did have greatest concern for alcohol wit hdrawal related seizure given history as well as physical exam demonstrating tremulousness and tongue fasciculations. CT of the head without evidence for bleed or mass. No fever or leukocytosis to suggest for meningitis. No evidence for arrhythmia. Patient was not hypoglycemic. Initially, patient requested discharge to home AMA, however after discussion with and myself, patient agreed to admission. Patient had increasing tremulousness here in the ED, always improved with Ativan as above. He does note intermittent episodes of similar in the past, but never attributed it to alcohol use. I discussed the case with the hospitalist, who agreed to admit the patient. I did discuss the case with sharon deluna as well, who did not feel that loading patient with antiepileptic was indicated given first timeseizure as well as concern for alcohol withdrawal seizure. Diagnosis: ICD-10-CM 1. Seizure (H) R56.9 2. Hyperglycemia R73.9 3. Elevated LFTs R79.89 Scribe Disclosure: I, Laura Reed, am serving as a scribe at 1:59 PM on 10/01/2021 to document services personally performed by Umair Salinas PA-C based on my observations and the provider's statements to me. This record was created at least in part using electronic voice recognition software, so please excuse any typographical errors. Umair Salinas PA-C 10/01/211841 Troy Blankenship MD - 10/01/2021 1:26 PM CDT Emergency Department Attending Supervision Note 10/01/2021 5:01 PM I evaluated this patient in conjunction with VIMAL Bartlett. Briefly, the patient presented with seizure-like activity witnessed at home by family. Here, he is noted to have some tremors and chills. He has no history of seizure disorder. He tells me is having some cramping in his lower legs but otherwise feels well at this time. He has no history of seizures orseizure-like activity. He does drink alcohol occasionally. He is never had alcohol withdrawal symptoms that he is aware of. No fevers or headaches. No neck pain. On my exam, Constitutional: Well appearing. HEENT: Atraumatic. PERRL. EOMI. Moist mucous membranes. Neck: Soft. Supple. No JVD. Cardiac: Mildly tachycardic rate with a regular rhythm. No murmur or rub. Respiratory: Clear to auscultation bilaterally. No respiratory distress. No wheezing, rhonchi, or rales. Abdomen: Soft and nontender. No rebound or guarding. Nondistended. Musculoskeletal: No edema. Normal range of motion. Neurologic: Alert and oriented x3. Normal tone and bulk. Mild tremors of the extremities with activity. No facial drooping. Normal speech. 5/5 strength in bilateral upper and lower extremities. Sensation to light touch intact throughout. Skin: No rashes. No edema. Psych: Normal affect. Normal behavior. Results: ED course: I agree with Umair's evaluation, impression, and plan. Patient with seizure-like activity concern foralcohol withdrawal on exam and based on the history. He is neurologically intact with no focal deficits on my exam. Is no fever, meningismus, concern for central nervous system infection at this time. We discussed plan for admission and he is in agreement. He is in stable condition at time of admission. Diagnosis ICD-10-CM 1. Seizure (H) R56.9 2. Hyperglycemia R73.9 3. Elevated LFTs R79.89 Umair Salinas PA-C Salay, Nicholas J, MD 10/04/21 1137 documented in this encounter Miscellaneous Notes Plan of Care - Ander Duncan RN - 10/05/2021 10:01 AM CDT Vitals VSS except elevated BP Neuro Neuros intact, CIWA score 0, A&Ox4 Respiratory LS clear Cardiac/Tele SR 60s GI/ Continent Skin Intact LDAs PIV SL Labs K+ 3.9, Mag 2.2, Phos 5.2 Diet Regular Activity Ind Plan Discharge home today. Discharged at 10:43am Plan of Care - Rl Varela RN - 10/05/2021 5:39 AM CDT The patient is on seizure precaution so I did set the room up with bed side padding and suction cannister and kit. The patient has been stable during the night. Neuro is intact and CIWA score for me both scored a 1. Will continue to manage patients plan of care. Possible discharge tomorrow Plan of Care - Glendy Paredes RN - 10/04/2021 9:30 PM CDT Shift Summary [id number] A&Ox4. VSS ex elevated BP (SBP 150s). Pain to groin area and LUE. Improved w/ PRN oxy. L PIV SL.Up independently. Tele: SR. CIWA scores: 1 and 6. Pt become more hyperactive in the late evening yetremained appropriate - making his bed and organizing room. Neuros intact. Possible discharge tomorrow. Will continue w/ POC. Plan of Care - Ander Duncan RN - 10/04/2021 11:36 AM CDT Vitals VSS except BP elevated Neuro A&Ox4. Neuros intact, CIWA scores 0 and 0 Respiratory WDL, LS clear Cardiac/Tele SR GI/ Continent Skin Intact LDAs PIV SL Labs K+ 4.5, Mag 2.2, and Phos 4.5 Diet Regular Activity Independent Plan Continue with POC. 2.5mg oral oxycodone for arm and leg pain with relief Plan of Care - Chung Choudhury RN - 10/04/2021 7:45 AM CDT A/Ox4. Ind in room. Tele: SR. HR in 120s-130s at one point during the night when up to the bathroom.CIWA: 1. K/Phos/Mg AM recheck. Neuros in tact. Continue to monitor. Plan of Care - Araceli Larry RN - 10/03/2021 10:23 PM CDT Temp: 99.7 ??F (37.6 ??C) Temp src: Oral BP: (!) 156/96 Pulse: 76 Resp: 18 SpO2: 95 % O2 Device: None (Room air) Pain: in legs, Tylenol PRN given, pain subsided. A&O x4 CIWA score 1, neuro check all good Potassium, Phos and Mag in norm, recheck tomorrow Tele: SR EEG today found largely normal, no focal slowing epilepsy or seizure activity Ambulated in hallway and room, walks steady. Bed alarm still on. BP still elevated, took clonidine but does not want it after discharge - sticky note for MD: pt requested to talk to MD Tomorrow about BP meds Discharge: anticipated to home for tomorrow Plan of Care - Jessica Ceron RN - 10/03/2021 7:03 AM CDT Goal Outcome Evaluation: AOX4. Room air. Denies pain. Ativan x1 prn. Elevated BP doc paged clonidine added, bp 134/78 will continue to monitor. IVF @100ML. Up to bathroom with standby assist. EEG tomorrow. Plan of Care - Ledy Pastrana RN - 10/02/2021 9:36 PM CDT VSS, afeb., BP runs high, last one 161/97. LS are clear, 96% on RA. Pt denies pain, good appetite, drinks gd amt of fluids. CIWA scores this shift were 8,12,12,8. Pt received total of 4 mg po ativan this shift so far. Pt alert and oriented, confused at times, unsteady on feet, hands tremor. Pt seen byNeurology fo previous seizure, MRI was ordered and received, results are pending. EEG and Chem Dep consult tomorrow. Tele is ST. Plan of Care - Araceli Larry RN - 10/02/2021 4:22 PM CDT Temp: 99.1 ??F (37.3 ??C) Temp src: Oral BP: (!) 152/92 Pulse: 90 Resp: 16 SpO2: 98 % O2 Device: None (Room air) Pain: denied pain CIWA: 0 in the morning and 8 in the afternoon, Ativan 1mg po. Given. IV removed and placed new one on right dorsal hand. Mag/Phos/K in norm, recheck tomorrow morning Tele: ST Ambulated to bathroom with assistance 1 A&O x4 Discharge TBD Chem\Dep consult ordered Plan of Care - Heaven Monsalve RN - 10/02/2021 4:53 AM CDT BP (!) 172/105 (BP Location: Left arm) Pulse 89 Temp 98.5 ??F (36.9 ??C) (Oral) Resp 20 Ht 1.854 m (6' 1) Wt 84 kg (185 lb 3.2 oz) SpO2 100% BMI 24.43 kg/m?? Pt was alert to only person and place and is now A/O x 4. Pt denies pain. U/S of abdomen done this morning. Pt is SBA/Assist of 1. IVF running and Phos replaced recheck at 0830. CIWA: 3, 2, 4, 2. Continue to monitor. Plan of Care - Ledy Pastrana RN - 10/01/2021 10:07 PM CDT VSS, BP elevated at 152/102, LS are clear, 97% on RA. Pt very tremerous, and very unsteady on his feet, heavy assist of 1 or 2 assist. Pt is disoriented to place, time and situation. CIWA scores have been 13, 14, 5 & 3. Pt received 2 doses of IV Ativan 2mg at 1930 and 2029. Pt will be NPO from 10pm to 5am for abd CT. Pharmacy-Admission Medication History - Millie Mi - 10/01/2021 3:49 PM CDT Admission medication history interview status for this patient is complete. See [facility] admission navigator for allergy information, prior to admission medications and immunization status. Medication history interview done, indicate source(s): Patient Medication history resources (including written lists, pill bottles, clinic record): No Rx history Pharmacy: [facility] for discharge Changes made to [employer] medication list: Added: all meds Changed: - Reported as Not Taking: - Removed: - Actions taken by pharmacist (provider contacted, etc): Spoke with patient about home medlist Additional medication history information:None Medication reconciliation/reorder completed by provider prior to medication history? N (Y/N) Prior to Admission medications Medication Sig Last Dose Taking? Auth Provider cetirizine (ZYRTEC) 10 MG tablet Take 10 mg by mouth daily as needed for allergies (fall season) More than a month at Unknown time Yes Unknown, Entered By History fexofenadine-pseudoePHEDrine (JENNIFER-D 24) 180-240 MG 24 hr tablet Take 1 tablet by mouth daily as needed for allergies (fall season) More than a month at Unknown time Yes Unknown, Entered By History fluticasone (FLONASE) 50 MCG/ACT nasal spray [place] 1 spray into both nostrils daily as needed for rhinitis or allergies (fall season) More than a month at Unknown time Yes Unknown, Entered By History ketotifen (ZADITOR) 0.025 % ophthalmic solution Place 1 drop into both eyes 2 times daily as needed for itching or dry eyes (fall season) More than a month at Unknown time Yes Unknown, Entered By History Multiple Vitamins-Minerals (MULTIVITAMIN GUMMIES ADULT) CHEW Take 1 chew tab by mouth daily Past Week at Unknown time Yes Unknown, Entered By History naproxen sodium (ANAPROX) 220 MG tablet Take 220 mg by mouth 3 times daily as needed for moderate pain More than a month at Unknown time Yes Unknown, Entered By History oxymetazoline (AFRIN) 0.05 % nasal spray [place]o 2 sprays into both nostrils 2 times daily as needed for congestion (fall season) More than a month at Unknown time Yes Unknown, Entered By History Associated attestation - Andrez Ceja RPH - 10/01/2021 3:52 PM CDT Medication history and patient interview completed by pharmacy resident. Reviewed by pharmacist, including [employer] dispense records, [facility] Care Everywhere, chart review, and other available resources. Andrez Ceja RPh documented in this encounter Plan of Treatment Upcoming Encounters Date Type Specialty Care Team Description 02/07/2022 Virtual Visit Psychology Raulito Flores tt, [address] [id number] (Wo rk) 02/15/2022 Ancillary Procedure Neurology Leann Schmitt MD [address] [place] [id number] (Wo rk) 03/05/2022 Virtual Visit Neurology Leann Villagran MD [address] [place] [id number] (Wo rk) documented as of this encounter Procedures Procedure Name Priority Date/Time Associated Comments Diagnosis POTASSIUM Routine 10/05/2021 5:48 Results for this AM CDT procedure are i n the results section. PHOSPHORUS Routine 10/05/2021 5:48 Results for this AM CDT procedure are i n the results section. MAGNESIUM Routine 10/05/2021 5:48 Results for this AM CDT procedure are i n the results section. HEPATIC FUNCTION Add-On 10/05/2021 5:48 Results for this PANEL AM CDT procedure are i n the results section. POTASSIUM Routine 10/04/2021 5:47 Results for this AM CDT procedure are i n the results section. PHOSPHORUS Routine 10/04/2021 5:47 Results for this AM CDT procedure are i n the results section. MAGNESIUM Routine 10/04/2021 5:47 Results for this AM CDT procedure are i n the results section. EEG AWAKE OR DROWSY Routine 10/03/2021 10:51 Resu lts for this ROUTINE AM CDT procedure are i n the results section. PHOSPHORUS Routine 10/03/2021 7:00 Results for this AM CDT procedure are i n the results section. MAGNESIUM Routine 10/03/2021 7:00 Results for this AM CDT procedure are i n the results section. COMPREHENSIVE Routine 10/03/2021 7:00 Results for this METABOLIC PANEL AM CDT procedure ar e in the results section. CBC WITH PLATELETS Routine 10/03/2021 7:00 Result s for this AM CDT procedure are i n the results section. MR BRAIN W/O & W Routine 10/02/2021 7:57 Results for this CONTRAST PM CDT procedure are i n the results section. PHOSPHORUS Timed 10/02/2021 7:09 Results for this AM CDT procedure are i n the results section. MAGNESIUM Routine 10/02/2021 7:09 Results for this AM CDT procedure are i n the results section. COMPREHENSIVE Routine 10/02/2021 7:09 Results for this METABOLIC PANEL AM CDT procedure ar e in the results section. CBC WITH PLATELETS Routine 10/02/2021 7:09 Result s for this AM CDT procedure are i n the results section. US ABDOMEN LIMITED Routine 10/02/2021 5:21 Result s for this AM CDT procedure are i n the results section. CT HEAD W/O CONTRAST STAT 10/01/2021 3:27 Resu lts for this PM CDT procedure are i n the results section. COVID-19 VIRUS STAT 10/01/2021 2:59 Results fo r this (CORONAVIRUS) BY PCR PM CDT procedu re are in the results section. EKG 12-LEAD, TRACING STAT 10/01/2021 2:26 Resu lts for this ONLY PM CDT procedure are i n the results section. EXTRA TUBE STAT 10/01/2021 1:55 Results for this PM CDT procedure are i n the results section. EXTRA PURPLE TOP TUBE STAT 10/01/2021 1:55 Res ults for this PM CDT procedure are i n the results section. EXTRA GREEN TOP STAT 10/01/2021 1:55 Results f or this (LITHIUM HEPARIN) PM CDT procedure are in TUBE the results section. EXTRA RED TOP TUBE STAT 10/01/2021 1:55 Result s for this PM CDT procedure are i n the results section. EXTRA BLUE TOP TUBE STAT 10/01/2021 1:55 Resul ts for this PM CDT procedure are i n the results section. CBC WITH PLATELETS STAT 10/01/2021 1:55 Result s for this AND DIFFERENTIAL PM CDT procedure a re in the results section. CBC WITH PLATELETS & STAT 10/01/2021 1:55 Resu lts for this DIFFERENTIAL PM CDT procedure are i n the results section. TROPONIN I STAT 10/01/2021 1:55 Results for this PM CDT procedure are i n the results section. PHOSPHORUS STAT Add-on 10/01/2021 1:55 Results for this PM CDT procedure are i n the results section. MAGNESIUM STAT Add-on 10/01/2021 1:55 Results for this PM CDT procedure are i n the results section. HEMOGLOBIN A1C Add-On 10/01/2021 1:55 Results fo r this PM CDT procedure are i n the results section. COMPREHENSIVE STAT 10/01/2021 1:55 Results for this METABOLIC PANEL PM CDT procedure ar e in the results section. ROUTINE UA WITH STAT 10/01/2021 1:45 Results f or this MICROSCOPIC REFLEX TO PM CDT proced ure are in CULTURE the results section. documented in this encounter Results (ABNORMAL) Hepatic panel (10/05/2021 5:48 AM CDT) [facility] gist Method Time Signature Bilirubin Total 0.9 0.2 - 1.3 10/05/2021 [facility] mg/dL 9:11 AM CDT Bilirubin Direct 0.3 (H) 0.0 - 0.2 10/05/2021 [facility] Y mg/dL 9:11 AM CDT Protein Total 7.9 6.8 - 8.8 10/05/2021 [facility] g/dL 9:11 AM CDT Albumin 3.8 3.4 - 5.0 10/05/2021 [facility] g/dL 9:11 AM CDT Alkaline 65 40 - 150 10/05/2021 [facility] Phosphatase U/L 9:11 AM CDT AST 120 (H) 0 - 45 U/L 10/05/2021 [facility] 9:11 AM CDT ALT 153 (H) 0 - 70 U/L 10/05/2021 [facility] 9:11 AM CDT Specimen Anatomical Collection Method / Collection Time Recei heber Time (Source) Location / Volume Laterality Blood STRUCTURE OF LEFT Venipuncture / 10/05/2021 5:48 10/05 6:29 HAND / Unknown Unknown AM CDT AM CDT Al Al Arango MD LAB - BLOOD ORDERABLES Performing Organization Address City/State/[place] [phone] [facility] [address] Lab (1st floor, no room number) Magnesium (10/05/2021 5:48 AM CDT) P athologist Signature Magnesium 2.2 1.6 - 2.3 10/05/2021 [facility] mg/dL 7:02 AM CDT Specimen Anatomical Collection Method / Collection Time Recei heber Time (Source) Location / Volume Laterality Blood STRUCTURE OF LEFT Venipuncture / 10/05/2021 5:48 10/05 6:29 HAND / Unknown Unknown AM CDT AM CDT Damion Arango MD LAB - BLOOD ORDERABLES Performing Organization Address City/State/[place] [address] [facility] [address] Lab (1st floor, no room number) (ABNORMAL) Phosphorus (10/05/2021 5:48 AM CDT) P athologist Signature Phosphorus 5.2 (H) 2.5 - 4.5 10/05/2021 [facility] mg/dL 7:02 AM CDT Specimen Anatomical Collection Method / Collection Time Recei heber Time (Source) Location / Volume Laterality Blood STRUCTURE OF LEFT Venipuncture / 10/05/2021 5:48 10/05 6:29 HAND / Unknown Unknown AM CDT AM CDT Damion Arango MD LAB - BLOOD ORDERABLES Performing Organization Address City/[facility]/[place] [address] [facility] [address] Lab (1st floor, no room number) Potassium (10/05/2021 5:48 AM CDT) P athologist Signature Potassium 3.9 3.4 - 5.3 10/05/2021 [facility] mmol/L 6:55 AM CDT Specimen Anatomical Collection Method / Collection Time Recei heber Time (Source) Location / Volume Laterality Blood STRUCTURE OF LEFT Venipuncture / 10/05/2021 5:48 10/05 6:29 HAND / Unknown Unknown AM CDT AM CDT Damion Arango MD LAB - BLOOD ORDERABLES Performing Organization Address City/[facility]/[place] [address] [facility] [address] Lab (1st floor, no room number) Phosphorus (10/04/2021 5:47 AM CDT) P athologist Signature Phosphorus 4.5 2.5 - 4.5 10/04/2021 [facility] mg/dL 7:06 AM CDT Specimen Anatomical Collection Method / Collection Time Recei heber Time (Source) Location / Volume Laterality Blood STRUCTURE OF RIGHT Venipuncture / 10/04/2021 5:47 09/13 6:17 UPPER LIMB / Unknown AM CDT AM CDT Unknown Vasquez Hope DO LAB - BLOOD ORDERABLES Performing Organization Address City/[facility]/[place] [address] [facility] [address] Lab (1st floor, no room number) Magnesium (10/04/2021 5:47 AM CDT) P athologist Signature Magnesium 2.2 1.6 - 2.3 10/04/2021 [facility] mg/dL 7:06 AM CDT Specimen Anatomical Collection Method / Collection Time Recei heber Time (Source) Location / Volume Laterality Blood STRUCTURE OF RIGHT Venipuncture / 10/04/2021 5:47 /09/2021 6:17 UPPER LIMB / Unknown AM CDT AM CDT Unknown Vasquez Hope DO LAB - BLOOD ORDERABLES Performing Organization Address City/State/ZIP Code [place] [address] [facility] [address] Lab (1st floor, no room number) Potassium (10/04/2021 5:47 AM CDT) P athologist Signature Potassium 4.5 3.4 - 5.3 10/04/2021 [facility] mmol/L 7:01 AM CDT Specimen Anatomical Collection Method / Collection Time Recei heber Time (Source) Location / Volume Laterality Blood STRUCTURE OF RIGHT Venipuncture / 10/04/2021 5:47 09/13 6:17 UPPER LIMB / Unknown AM CDT AM CDT Unknown Vasquez Hope DO LAB - BLOOD ORDERABLES Performing Organization Address City/[facility]/[place] [address] [facility] [address] Lab (1st floor, no room number) EEG Awake or Drowsy Routine (10/03/2021 10:51 AM CDT) Specimen (Source) Anatomical Location Collection Method / Collectio n Time Received Time / Laterality Volume Narrative [id number] - 10/03/2021 3:46 PM CDT Neurology EEG Report [facility] ? [October 03, 2021] ? Umair Mckenzie ?41 year o ld yo male [id number] Admission Date: @ADMITDT@ Description of Record This digital EEG begins with the patient awake. His EKG shows a regular rate of 72 bpm. His record is notable fo r a posterior dominant alpha rhythm of 10-12 Hz, reactive. The record is notable for low amplitude activity symmetrically. He has a very lo w amplitude, very high frequency activity in both hemispheres consistent with a benzodiazepine effect. There is good symmetry of the background rhythms and amplitudes throughout the record. Photic stimulation produces no driving response or photoparoxysmal activity. Hyperventilati on is unremarkable. He has no epileptiform discharges or seizure activ ity at any time during the record. He has no focal slowing. Clinical Interpretation This is a largely normal EEG. The low am plitude/high frequency activity is characteristic of a benzodiazepine effec t, but hyperthyroidism could also produce this picture. He has no evidence of focal slowing, epileptiform discharges, or seizure activity. Clinica l correlation is required. ??Aubrey Cain M.D., Ph.D. ??[facility] ?? Edgar Oseguera MD IMG EEG ORDERABLES Performing Organization Address City/State/ZIP Code Phon e Number [id number] (ABNORMAL) Comprehensive metabolic panel (10/03/2021 7:00 AM CDT) [facility] Method Time Signature Sodium 136 133 - 144 10/03/2021 [facility] mmol/L 8:19 AM CDT Potassium 4.3 3.4 - 5.3 10/03/2021 [facility] mmol/L 8:19 AM CDT Chloride 104 94 - 109 10/03/2021 [facility] mmol/L 8:19 AM CDT Carbon Dioxide 28 20 - 32 10/03/2021 [facility] (CO2) mmol/L 8:19 AM CDT Anion Gap 4 3 - 14 10/03/2021 [facility] mmol/L 8:19 AM CDT Urea Nitrogen 9 7 - 30 10/03/2021 [facility] mg/dL 8:19 AM CDT Creatinine 0.79 0.66 - 10/03/2021 [facility] 1.25 mg/dL 8:19 AM CDT Calcium 9.1 8.5 - 10.1 10/03/2021 [facility] mg/dL 8:19 AM CDT Glucose 114 (H) 70 - 99 10/03/2021 [facility] mg/dL 8:19 AM CDT Alkaline 53 40 - 150 10/03/2021 [facility] Phosphatase U/L 8:19 AM CDT AST 176 (H) 0 - 45 U/L 10/03/2021 [facility] 8:19 AM CDT ALT 153 (H) 0 - 70 U/L 10/03/2021 [facility] 8:19 AM CDT Protein Total 7.5 6.8 - 8.8 10/03/2021 [facility] g/dL 8:19 AM CDT Albumin 3.6 3.4 - 5.0 10/03/2021 [facility] g/dL 8:19 AM CDT Bilirubin Total 1.5 (H) 0.2 - 1.3 10/03/2021 [facility] mg/dL 8:19 AM CDT GFR Estimate >90 >60 10/03/2021 [facility] mL/min/1.7 8:19 AM CDT 3m2 Comment: Effective July 04, 2021 eGF Rcr in adults is calculated using the 2020 CKD-EPI creatinine equation which includ es age and gender (Aura et al., NEJ, DOI: 10.1056/KYTPiv6497264) Specimen Anatomical Collection Method / Collection Time Recei heber Time (Source) Location / Volume Laterality Blood STRUCTURE OF RIGHT Venipuncture / 10/03/2021 7:00 03/08/2021 7:27 UPPER LIMB / Unknown AM CDT AM CDT Unknown Vasquez Hope DO LAB - BLOOD ORDERABLES Performing Organization Address City/State/ZIP Code [place] [address] [facility] [address] Lab (1st floor, no room number) (ABNORMAL) CBC with platelets (10/03/2021 7:00 AM CDT) Analysis Performed At Patho logist Time Signature WBC Count 6.1 4.0 - 11.0 10/03/2021 [facility] 10e3/uL 7:46 AM CDT RBC Count 4.46 4.40 - 10/03/2021 [facility] 5.90 7:46 AM CDT 10e6/uL Hemoglobin 13.9 13.3 - 10/03/2021 [facility] 17.7 g/dL 7:46 AM CDT Hematocrit 42.3 40.0 - 10/03/2021 [facility] 53.0 % 7:46 AM CDT MCV 95 78 - 100 10/03/2021 [facility] fL 7:46 AM CDT MCH 31.2 26.5 - 10/03/2021 [facility] 33.0 pg 7:46 AM CDT MCHC 32.9 31.5 - 10/03/2021 [facility] 36.5 g/dL 7:46 AM CDT RDW 12.7 10.0 - 10/03/2021 [facility] 15.0 % 7:46 AM CDT Platelet Count 131 (L) 150 - 450 10/03/2021 [facility] 10e3/uL 7:46 AM CDT Specimen Anatomical Collection Method / Collection Time Recei heber Time (Source) Location / Volume Laterality Blood STRUCTURE OF RIGHT Venipuncture / 10/03/2021 7:00 09/13 7:27 UPPER LIMB / Unknown AM CDT AM CDT Unknown Vasquez Hope DO LAB - BLOOD ORDERABLES Performing Organization Address City/[facility]/[place] [address] [facility] [address] Lab (1st floor, no room number) Phosphorus (10/03/2021 7:00 AM CDT) P athologist Signature Phosphorus 4.1 2.5 - 4.5 10/03/2021 [facility] mg/dL 8:19 AM CDT Specimen Anatomical Collection Method / Collection Time Recei heber Time (Source) Location / Volume Laterality Blood STRUCTURE OF RIGHT Venipuncture / 10/03/2021 7:00 09/13 7:27 UPPER LIMB / Unknown AM CDT AM CDT Unknown Vasquez Hope DO LAB - BLOOD ORDERABLES Performing Organization Address City/State/[place] [address] [facility] [address] Lab (1st floor, no room number) Magnesium (10/03/2021 7:00 AM CDT) P athologist Signature Magnesium 2.0 1.6 - 2.3 10/03/2021 [facility] mg/dL 8:19 AM CDT Specimen Anatomical Collection Method / Collection Time Recei heber Time (Source) Location / Volume Laterality Blood STRUCTURE OF RIGHT Venipuncture / 10/03/2021 7:00 03/2 08/2021 7:27 UPPER LIMB / Unknown AM CDT AM CDT Unknown Vasquez Hope DO LAB - BLOOD ORDERABLES Performing Organization Address City/State/ZIP Code Phon e Number LABORATORY [facility] [place] [address] [facility] [address] Lab (1st floor, no room number) MR Brain w/o & w Contrast (10/02/2021 7:57 PM CDT) Anatomical Region Laterality Modality Head, SUBRAD MR NEURO, UMP MR NEURO, RAD MR Magnetic Resonance Specimen (Source) Anatomical Collection Method Collection Time Re ceived Time Location / / Volume Laterality 10/02/2021 7:28 PM CDT Impressions 10/02/2021 9:36 PM CDT IMPRESSION: 1. ??Unremarkable MRI of the head. Narrative 10/02/2021 9:36 PM CDT EXAM: MR BRAIN W/O and W CONTRAST LOCATION: [facility] DATE/TIME: 10/02/2021 7:28 PM INDICATION: Seizure, abnormal neuro exam . COMPARISON: Head CT 10/01/2021. CONTRAST: 8.5mL Gadavist. TECHNIQUE: Routine multiplanar multisequ ence head MRI without and with intravenous contrast. FINDINGS: INTRACRANIAL CONTENTS: No acute or subac sioux infarct. No mass, acute hemorrhage, or extra-axial fluid collections. Scattered nonspecific T2/FLAIR hyperintensities within the cerebral white matter most co nsistent with mild chronic microvascular ischemic change considered to be within normal li mits for age. Mild volume loss considered to be within normal limits for age. No hydrocephalus. Normal position of the cerebellar tonsils. No pathologic contrast enhancement. SELLA: No gross abnormality accounting f or technique. OSSEOUS STRUCTURES/SOFT TISSUES: Normal marrow signal. The major intracranial vascular flow voids are maintained. ORBITS: No gross abnormality accounting for technique. SINUSES/MASTOIDS: Mild polypoid mucosal thickening scattered about the paranasal sinuses. No middle ear or mastoid effusion. Procedure Note Carrillo Santiago MD - 10/02/2021F ormatting of this note might be different from the original. EXAM: MR BRAIN W/O and W CONTRAST LOCATION: [facility] DATE/TIME: 10/02/2021 7:28 PM INDICATION: Seizure, abnormal neuro exam . COMPARISON: Head CT 10/01/2021. CONTRAST: 8.5mL Gadavist. TECHNIQUE: Routine multiplanar multisequ ence head MRI without and with intravenous contrast. FINDINGS: INTRACRANIAL CONTENTS: No acute or subac sioux infarct. No mass, acute hemorrhage, or extra-axial fluid collections. Scattered nonspecific T2/FLAIR hyperintensities within the cerebral white matter most consistent with mild chronic microvascular ischemic change considered to be within normal li mits for age. Mild volume loss considered to be within normal limits for age. No hydrocephalus. Normal position of the cerebellar tonsils. No pathologic contrast enhancement. SELLA: No gross abnormality accounting f or technique. OSSEOUS STRUCTURES/SOFT TISSUES: Normal marrow signal. The major intracranial vascular flow voids are maintained. ORBITS: No gross abnormality accounting for technique. SINUSES/MASTOIDS: Mild polypoid mucosal thickening scattered about the paranasal sinuses. No middle ear or mastoid effusion. IMPRESSION: 1. Unremarkable MRI of the head. Edgar Oseguera MD IMG MRI ORDERABLES Magnesium (10/02/2021 7:09 AM CDT) athologist Signature Magnesium 2.2 1.6 - 2.3 10/02/2021 [facility] mg/dL 8:09 AM CDT Specimen Anatomical Collection Method / Collection Time Recei heber Time (Source) Location / Volume Laterality Blood STRUCTURE OF RIGHT Venipuncture / 10/02/2021 7:09 03/2 07/2021 7:43 UPPER LIMB / Unknown AM CDT AM CDT Unknown Ant Rojo MD LAB - BLOOD ORDERABLES Performing Organization Address City/State/ZIP Code [place] [address] [facility] [address] Lab (1st floor, no room number) Phosphorus (10/02/2021 7:09 AM CDT) athologist Signature Phosphorus 4.3 2.5 - 4.5 10/02/2021 [facility] mg/dL 8:09 AM CDT Specimen Anatomical Collection Method / Collection Time Recei heber Time (Source) Location / Volume Laterality Blood STRUCTURE OF RIGHT Venipuncture / 10/02/2021 7:09 09/13 7:43 UPPER LIMB / Unknown AM CDT AM CDT Unknown Ant Rojo MD LAB - BLOOD ORDERABLES Performing Organization Address City/State/ZIP Code [place] [phone] [facility] [address] Lab (1st floor, no room number) (ABNORMAL) CBC with platelets (10/02/2021 7:09 AM CDT) Analysis Performed At Patho logist Time Signature WBC Count 5.0 4.0 - 11.0 10/02/2021 [facility] 10e3/uL 7:55 AM CDT RBC Count 4.56 4.40 - 10/02/2021 [facility] 5.90 7:55 AM CDT 10e6/uL Hemoglobin 14.2 13.3 - 10/02/2021 [facility] 17.7 g/dL 7:55 AM CDT Hematocrit 42.9 40.0 - 10/02/2021 [facility] 53.0 % 7:55 AM CDT MCV 94 78 - 100 10/02/2021 [facility] fL 7:55 AM CDT MCH 31.1 26.5 - 10/02/2021 [facility] 33.0 pg 7:55 AM CDT MCHC 33.1 31.5 - 10/02/2021 [facility] 36.5 g/dL 7:55 AM CDT RDW 13.1 10.0 - 10/02/2021 [facility] 15.0 % 7:55 AM CDT Platelet Count 131 (L) 150 - 450 10/02/2021 [facility] 10e3/uL 7:55 AM CDT Specimen Anatomical Collection Method / Collection Time Recei heber Time (Source) Location / Volume Laterality Blood STRUCTURE OF RIGHT Venipuncture / 10/02/2021 7:09 09/13 7:43 UPPER LIMB / Unknown AM CDT AM CDT Unknown Ant Rojo MD LAB - BLOOD ORDERABLES Performing Organization Address City/[facility]/ZIP Code [place] [phone] [facility] [address] [facility] Lab (1st floor, no room number) (ABNORMAL) Comprehensive metabolic panel (10/02/2021 7:09 AM CDT) [facility] Method Time Signature Sodium 136 133 - 144 10/02/2021 [facility] mmol/L 8:09 AM CDT Potassium 3.6 3.4 - 5.3 10/02/2021 [facility] mmol/L 8:09 AM CDT Chloride 103 94 - 109 10/02/2021 [facility] mmol/L 8:09 AM CDT Carbon Dioxide 27 20 - 32 10/02/2021 [facility] (CO2) mmol/L 8:09 AM CDT Anion Gap 6 3 - 14 10/02/2021 [facility] mmol/L 8:09 AM CDT Urea Nitrogen 7 7 - 30 10/02/2021 [facility] mg/dL 8:09 AM CDT Creatinine 0.80 0.66 - 10/02/2021 [facility] 1.25 mg/dL 8:09 AM CDT Calcium 9.2 8.5 - 10.1 10/02/2021 [facility] mg/dL 8:09 AM CDT Glucose 122 (H) 70 - 99 10/02/2021 [facility] mg/dL 8:09 AM CDT Alkaline 50 40 - 150 10/02/2021 [facility] Phosphatase U/L 8:09 AM CDT AST 203 (H) 0 - 45 U/L 10/02/2021 [facility] 8:09 AM CDT ALT 156 (H) 0 - 70 U/L 10/02/2021 [facility] 8:09 AM CDT Protein Total 7.6 6.8 - 8.8 10/02/2021 [facility] g/dL 8:09 AM CDT Albumin 3.7 3.4 - 5.0 10/02/2021 [facility] g/dL 8:09 AM CDT Bilirubin Total 1.8 (H) 0.2 - 1.3 10/02/2021 [facility] mg/dL 8:09 AM CDT GFR Estimate >90 >60 10/02/2021 [facility] mL/min/1.7 8:09 AM CDT 3m2 Comment: Effective July 04, 2021 eGF Rcr in adults is calculated using the 2020 CKD-EPI creatinine equation which includ es age and gender ([employer] et al., NEJ, DOI: 10.1056/HSPEqg4037419) Specimen Anatomical Collection Method / Collection Time Recei heber Time (Source) Location / Volume Laterality Blood STRUCTURE OF RIGHT Venipuncture / 10/02/2021 7:09 09/13 7:43 UPPER LIMB / Unknown AM CDT AM CDT Unknown Ant Rojo MD LAB - BLOOD ORDERABLES Performing Organization Address City/State/ZIP Code [place] [phone] [facility] [address] Lab (1st floor, no room number) US Abdomen Limited (10/02/2021 5:21 AM CDT) Anatomical Region Laterality Modality Abdomen/Pelvis Ultrasound Specimen (Source) Anatomical Collection Method Collection Time Re ceived Time Location / / Volume Laterality 10/02/2021 4:55 AM CDT Impressions 10/02/2021 5:25 AM CDT IMPRESSION: 1. ??Hepatic steatosis. No surface conto ur nodularity. 2. ??Remainder unremarkable. Narrative 10/02/2021 5:25 AM CDT EXAM: US ABDOMEN LIMITED LOCATION: [facility] DATE/TIME: 10/02/2021 4:55 AM INDICATION: Elevation of liver function studies. COMPARISON: None. TECHNIQUE: Limited abdominal ultrasound. FINDINGS: GALLBLADDER: Normal. No gallstones, wall thickening, or pericholecystic fluid. Negative sonographic Randall's sign. BILE DUCTS: No biliary dilatation. The c ommon duct measures 4 mm. LIVER: Hepatic steatosis. No surface con tour nodularity. Visualized aspects of the main portal vein patent. RIGHT KIDNEY: 10.3 x 5.5 x 5.1 cm. No hy dronephrosis. PANCREAS: The visualized portions are no rmal. Segmentally visualized aspects of the ao rta normal in caliber. No ascites. Procedure Note Aba Murray MD - 10/02/2021Formatt ing of this note might be different from the original. EXAM: US ABDOMEN LIMITED LOCATION: [facility] DATE/TIME: 10/02/2021 4:55 AM INDICATION: Elevation of liver function studies. COMPARISON: None. TECHNIQUE: Limited abdominal ultrasound. FINDINGS: GALLBLADDER: Normal. No gallstones, wall thickening, or pericholecystic fluid. Negative sonographic Randall's sign. BILE DUCTS: No biliary dilatation. The c ommon duct measures 4 mm. LIVER: Hepatic steatosis. No surface con tour nodularity. Visualized aspects of the main portal vein patent. RIGHT KIDNEY: 10.3 x 5.5 x 5.1 cm. No hy dronephrosis. PANCREAS: The visualized portions are no rmal. Segmentally visualized aspects of the ao rta normal in caliber. No ascites. IMPRESSION: 1. Hepatic steatosis. No surface contour nodularity. 2. Remainder unremarkable. Ant Rojo MD IMG US ORDERABLES CT Head w/o Contrast (10/01/2021 3:27 PM CDT) Anatomical Region Laterality Modality Head, SUBRAD CT NEURO, SUBRAD CT NEURO, UMP CT NEURO, Computed Tomography RAD CT Specimen (Source) Anatomical Collection Method Collection Time Re ceived Time Location / / Volume Laterality 10/01/2021 3:18 PM CDT Impressions 10/01/2021 4:01 PM CDT IMPRESSION: 1. ??No acute process intracranially. 2. ??No mass, mass effect or hemorrhage. 3. ??Nothing for acute or evolving ische ernesto event. 4. ??Additional details and description are provided above. Narrative 10/01/2021 4:01 PM CDT EXAM: CT HEAD W/O CONTRAST LOCATION: [facility] DATE/TIME: 10/01/2021 3:18 PM INDICATION: Seizure, nontraumatic (Age > = 41y). COMPARISON: None. TECHNIQUE: Routine CT Head without IV co ntrast. Multiplanar reformats. Dose reduction techniques were used. FINDINGS: INTRACRANIAL CONTENTS: No intracranial h emorrhage, extraaxial collection, or mass effect. ??No CT evidence of acute infarct. Normal parenchymal attenuation. Normal ventricles and sulci. Corpus callosum is satisfactory. Position of the cerebel lar tonsils is normal. Sella shows no acute abnormal ity. No sella hemorrhage is evident. The conde-white differentiation is satisfactory. VISUALIZED ORBITS/SINUSES/MASTOIDS: No i ntraorbital abnormality. Mild mucosal thickening scattered about the paranasal sinuses. No air-fluid levels in the paranasal sinuses. No middle ear or mastoid effusion. BONES/SOFT TISSUES: No fracture of the c alvarium or skull base. Overall mineralization is satisfactory. No swelling of the facial or scalp tissues. Procedure Note Jermaine Garcia MD - 10/01/2021For matting of this note might be different from the original. EXAM: CT HEAD W/O CONTRAST LOCATION: [facility] DATE/TIME: 10/01/2021 3:18 PM INDICATION: Seizure, nontraumatic (Age > = 41y). COMPARISON: None. TECHNIQUE: Routine CT Head without IV co ntrast. Multiplanar reformats. Dose reduction techniques were used. FINDINGS: INTRACRANIAL CONTENTS: No intracranial h emorrhage, extraaxial collection, or mass effect. No CT evidence of acute infarct. Normal parenchymal attenuation. Normal ventricles and sulci. Corpus callosum is satisfactory. Position of the cerebellar tonsils is normal. Sella shows no acute abnormal ity. No sella hemorrhage is evident. The conde-white differentiation is satisfactory. VISUALIZED ORBITS/SINUSES/MASTOIDS: No i ntraorbital abnormality. Mild mucosal thickening scattered about the paranasal sinuses. No air-fluid levels in the paranasal sinuses. No middle ear or mastoid effusion. BONES/SOFT TISSUES: No fracture of the c alvarium or skull base. Overall mineralization is satisfactory. No swelling of the facial or scalp tissues. IMPRESSION: 1. No acute process intracranially. 2. No mass, mass effect or hemorrhage. 3. Nothing for acute or evolving ischemi c event. 4. Additional details and description ar e provided above. Umair Salinas PA-C [facility] [place] Asymptomatic COVID-19 Virus (Coronavirus) by PCR Nasopharyngeal (10/01/2021 2:59 PM CDT) Analysis Performed At [facility] Time Signature SARS CoV2 PCR Negative Negative 10/01/2021 LABORATORY 4:12 PM CDT Comment: NEGATIVE: SARS-CoV-2 (COVID-19) RNA not detected, presumed negative. Specimen Anatomical Location / Collection Method Collection Meliton e Received Time (Source) Laterality / Volume Swab NASOPHARYNGEAL Non-blood 10/01/2021 2:59 10/01/2021 3:14 STRUCTURE / Unknown Collection / PM CDT PM CDT Unknown Narrative LABORATORY - 10/01/2021 4:12 PM CDT Testing was performed using the sanjeev?? SARS-CoV-2 & Influenza A/B Assay on the sanjeev?? Danielle?? System. ??This test shoul d be ordered for the detection of SARS-COV-2 in individuals who meet SARS-CoV-2 clini chris and/or epidemiological criteria. Test performance is unknown in asymptomatic p atients. ??This test is for in vitro diagnostic use under the FDA EUA for lab oratories certified under CLIA to perform moderate and/or high complexity testing. This test has not been FDA cleared or approved. ??A negative test does not rul e out the presence of PCR inhibitors in the specimen or target RNA in concentration below the limit of detection for the assay. The possibility of a false negative shou ld be considered if the patient's recent exposure or clinical presentation sugges ts COVID-19. ??[facility] are certified under the Clinical Laborat ory Improvement Amendments of 1988 (CLIA-88) as qualified to perform moderate and/or high complexity laboratory testing. Umair Salinas PA-C LAB - MICRO GENERAL ORDERABL ES Performing Organization Address City/State/[facility] [place] [phone] Care Lab [address] [facility] Lab (1st floor, no room number) EKG 12-lead, tracing only (10/01/2021 2:26 PM CDT) [facility] Method Time Signature Systolic Blood mmHg RADIOLOGY Pressure RESULTS Diastolic Blood mmHg RADIOLOGY Pressure RESULTS Ventricular Rate 90 BPM RADIOLOGY RESULTS Atrial Rate 90 BPM RADIOLOGY RESULTS IA Interval 146 ms RADIOLOGY RESULTS QRS Duration 94 ms RADIOLOGY RESULTS QT 370 ms RADIOLOGY RESULTS QTc 452 ms RADIOLOGY RESULTS P [place] 68 degrees RADIOLOGY RESULTS R AXIS 47 degrees RADIOLOGY RESULTS T [place] 61 degrees RADIOLOGY RESULTS Interpretation Sinus rhythm RADIOLOGY ECG Normal ECG RESULTS No previous ECGs available Confirmed by - EMERGENCY IGNACIO Mason PHYSICIAN ([id number]), editor & co founder MARYAM BROWN ([id number]) on 10/02/2021 6:57:25 AM Specimen Anatomical Collection Method Collection Time Receive d Time (Source) Location / / Volume Laterality 10/01/2021 2:26 PM 6:57 CDT AM CDT Umair Salinas PA-C ECG ORDERABLES Performing Organization Address City/State/ZIP Code Phon e Number RADIOLOGY RESULTS (ABNORMAL) Phosphorus (10/01/2021 1:55 PM CDT) P athologist Signature Phosphorus 1.7 (L) 2.5 - 4.5 10/01/2021 [facility] LABORATORY mg/dL 7:54 PM CDT Specimen Anatomical Collection Method / Collection Time Recei heber Time (Source) Location / Volume Laterality Blood BLOOD SPECIMEN / Venipuncture / 10/01/2021 1:55 2021 2:03 Unknown Unknown PM CDT PM CDT Ant Rjoo MD LAB - BLOOD ORDERABLES Performing Organization Address City/[facility]/ZIP Code [place] [phone] Care Lab [address] Lab (1st floor, no room number) Magnesium (10/01/2021 1:55 PM CDT) P athologist Signature Magnesium 2.0 1.6 - 2.3 10/01/2021 [facility]ORATORY mg/dL 7:54 PM CDT Specimen Anatomical Collection Method / Collection Time Recei heber Time (Source) Location / Volume Laterality Blood BLOOD SPECIMEN / Venipuncture / 10/01/2021 1:55 2021 2:03 Unknown Unknown PM CDT PM CDT Ant Rojo MD LAB - BLOOD ORDERABLES Performing Organization Address City/[facility]/ZIP Code [place] [phone] Care [address] Lab (1st floor, no room number) (ABNORMAL) Hemoglobin A1c (10/01/2021 1:55 PM CDT) Analysis Performed At Patho logist Time Signature Hemoglobin A1C 5.9 (H) 0.0 - 5.6 10/01/2021 [facility] LABORAT[facility] % 3:03 PM CDT Comment: Normal <5.7% Prediabetes 5.7-6.4% ?? Diabetes 6.5% or higher Note: Adopted from ADA consensus guideli anish. Specimen Anatomical Collection Method / Collection Time Recei heber Time (Source) Location / Volume Laterality Blood BLOOD SPECIMEN / Venipuncture / 10/01/2021 1:55 2021 2:03 Unknown Unknown PM CDT PM CDT Umair Salinas PA-C LAB - BLOOD ORDERABLES Performing Organization Address City/State/ZIP Code Ph[place] [phone] Care Lab [address] Lab (1st floor, no room number) (ABNORMAL) CBC with platelets and differential (10/01/2021 1:55 PM CDT) [facility] Method Time Signature WBC Count 6.2 4.0 - 10/01/2021 [facility]ORAT[facility] 11.0 2:10 PM CDT 10e3/uL RBC Count 4.71 4.40 - 10/01/2021 [facility] 5.90 2:10 PM CDT 10e6/uL Hemoglobin 14.9 13.3 - 10/01/2021 [facility] 17.7 g/dL 2:10 PM CDT Hematocrit 43.9 40.0 - 10/01/2021 [facility] 53.0 % 2:10 PM CDT MCV 93 78 - 100 10/01/2021 [facility] fL 2:10 PM CDT MCH 31.6 26.5 - 10/01/2021 [facility] 33.0 pg 2:10 PM CDT MCHC 33.9 31.5 - 10/01/2021 [facility] 36.5 g/dL 2:10 PM CDT RDW 12.9 10.0 - 10/01/2021 [facility] 15.0 % 2:10 PM CDT Platelet Count 155 150 - 450 10/01/2021 [facility] 10e3/uL 2:10 PM CDT % Neutrophils 81 % 10/01/2021 [facility] 2:10 PM CDT % Lymphocytes 6 % 10/01/2021 [facility] 2:10 PM CDT % Monocytes 12 % 10/01/2021 [facility] 2:10 PM CDT % Eosinophils 0 % 10/01/2021 [facility] 2:10 PM CDT % Basophils 1 % 10/01/2021 [facility] 2:10 PM CDT % Immature 0 % 10/01/2021 [facility] Granulocytes 2:10 PM CDT NRBCs per 100 WBC 0 <1 /100 10/01/2021 [facility] LABORATO RY 2:10 PM CDT Absolute 5.0 1.6 - 8.3 10/01/2021 [facility] Neutrophils 10e3/uL 2:10 PM CDT Absolute 0.4 (L) 0.8 - 5.3 10/01/2021 [facility] Lymphocytes 10e3/uL 2:10 PM CDT Absolute 0.8 0.0 - 1.3 10/01/2021 [facility] Monocytes 10e3/uL 2:10 PM CDT Absolute 0.0 0.0 - 0.7 10/01/2021 [facility] Eosinophils 10e3/uL 2:10 PM CDT Absolute 0.1 0.0 - 0.2 10/01/2021 [facility] Basophils 10e3/uL 2:10 PM CDT Absolute Immature 0.0 <=0.4 10/01/2021 [facility] LABORATO RY Granulocytes 10e3/uL 2:10 PM CDT Absolute NRBCs 0.0 10e3/uL 10/01/2021 [facility]OR[facility] 2:10 PM CDT Specimen Anatomical Collection Method / Collection Time Recei heber Time (Source) Location / Volume Laterality Blood BLOOD SPECIMEN / Venipuncture / 10/01/2021 1:55 2021 2:03 Unknown Unknown PM CDT PM CDT Umair Salinas PA-C LAB - BLOOD ORDERABLES Performing Organization Address City/State/ZIP Code [place] [phone] Care Lab [address] [facility] Lab (1st floor, no room number) Troponin I (now) (10/01/2021 1:55 PM CDT) P athologist Signature Troponin I High 6 <79 ng/L 10/01/2021 [facility] Sensitivity 2:26 PM CDT Comment: This Troponin-I result was obta ined using a Siemens Dimension [place] High Sensitivity Troponin-I assay (TNIH). Eff ective 06/06/21, nine labs/sites in the [facility] switched from a Siemens [place] Contemporary Troponin I assay (CTNI) to a Siemens [place] High-Sensitivity Troponi n I assay (TNIH). Specimen Anatomical Collection Method / Collection Time Recei heber Time (Source) Location / Volume Laterality Blood BLOOD SPECIMEN / Venipuncture / 10/01/2021 1:55 2021 2:03 Unknown Unknown PM CDT PM CDT Umair Salinas PA-C LAB - BLOOD ORDERABLES Performing Organization Address City/State/ZIP Code Ph[place] [phone] Care Lab [address] Lab (1st floor, no room number) (ABNORMAL) Comprehensive metabolic panel (10/01/2021 1:55 PM CDT) [facility] Method Time Signature Sodium 134 133 - 144 10/01/2021 LABORATORY mmol/L 2:24 PM CDT Potassium 3.7 3.4 - 5.3 10/01/2021 LABORATORY mmol/L 2:24 PM CDT Chloride 98 94 - 109 10/01/2021 LABORATORY mmol/L 2:24 PM CDT Carbon Dioxide 27 20 - 32 10/01/2021 LABORATORY (CO2) mmol/L 2:24 PM CDT Anion Gap 9 3 - 14 10/01/2021 LABORATORY mmol/L 2:24 PM CDT Urea Nitrogen 6 (L) 7 - 30 10/01/2021 LABORATORY mg/dL 2:24 PM CDT Creatinine 0.78 0.66 - 10/01/2021 LABORATORY 1.25 mg/dL 2:24 PM CDT Calcium 9.7 8.5 - 10.1 10/01/2021 LABORATORY mg/dL 2:24 PM CDT Glucose 240 (H) 70 - 99 10/01/2021 LABORATORY mg/dL 2:24 PM CDT Alkaline 64 40 - 150 10/01/2021 LABORATORY Phosphatase U/L 2:24 PM CDT AST 210 (H) 0 - 45 U/L 10/01/2021 LABORATORY 2:24 PM CDT ALT 181 (H) 0 - 70 U/L 10/01/2021 LABORATORY 2:24 PM CDT Protein Total 8.6 6.8 - 8.8 10/01/2021 LABORATORY g/dL 2:24 PM CDT Albumin 4.3 3.4 - 5.0 10/01/2021 LABORATORY g/dL 2:24 PM CDT Bilirubin Total 1.6 (H) 0.2 - 1.3 10/01/2021 [facility] mg/dL 2:24 PM CDT GFR Estimate >90 >60 10/01/2021 [facility] LABORATORY mL/min/1.7 2:24 PM CDT 3m2 Comment: Effective July 04, 2021 eGF Rcr in adults is calculated using the 2020 CKD-EPI creatinine equation which includ es age and gender (Aura et al., [place], DOI: 10.1056/ERTEaa4735736) Specimen Anatomical Collection Method / Collection Time Recei heber Time (Source) Location / Volume Laterality Blood BLOOD SPECIMEN / Venipuncture / 10/01/2021 1:55 2021 2:03 Unknown Unknown PM CDT PM CDT Umair PENA-C LAB - BLOOD ORDERABLES Performing Organization Address City/[facility]/ZIP [facility] [place] [phone] Care Lab [address] Lab (1st floor, no room number) Extra Purple Top Tube (10/01/2021 1:55 PM CDT) athologist Signature Hold Specimen [facility] 10/01/2021 [facility] LABORATORY 3:17 PM CDT Specimen Anatomical Collection Method / Collection Time Recei heber Time (Source) Location / Volume Laterality Blood BLOOD SPECIMEN / Venipuncture / 10/01/2021 1:55 2021 2:03 Unknown Unknown PM CDT PM CDT Umair Salinas PA-C LAB - BLOOD ORDERABLES Performing Organization Address City/[facility]/[place] [phone] Care [address] Lab (1st floor, no room number) Extra Green Top ([place] Heparin) Tube (10/01/2021 1:55 PM CDT) P athologist Signature Hold Specimen [facility] 10/01/2021 [facility] LABORAT[facility] 3:17 PM CDT Specimen Anatomical Collection Method / Collection Time Recei heber Time (Source) Location / Volume Laterality Blood BLOOD SPECIMEN / Venipuncture / 10/01/2021 1:55 2021 2:03 Unknown Unknown PM CDT PM CDT Umair Salinas PA-C LAB - BLOOD ORDERABLES Performing Organization Address [facility]/[place] [address] Care Lab [address] Lab (1st floor, no room number) Extra Red Top Tube (10/01/2021 1:55 PM CDT) athologist Signature Hold Specimen [facility] 10/01/2021 LABORATORY 3:17 PM CDT Specimen Anatomical Collection Method / Collection Time Recei heber Time (Source) Location / Volume Laterality Blood BLOOD SPECIMEN / Venipuncture / 10/01/2021 1:55 2021 2:03 Unknown Unknown PM CDT PM CDT Umair Salinas PA-C LAB - BLOOD ORDERABLES Performing Organization Address [facility]/[place] [address] Care Lab [address] Lab (1st floor, no room number) Extra Blue Top Tube (10/01/2021 1:55 PM CDT) athologist Signature Hold Specimen [facility] 10/01/2021 LABORATORY 3:17 PM CDT Specimen Anatomical Collection Method / Collection Time Recei heber Time (Source) Location / Volume Laterality Blood BLOOD SPECIMEN / Venipuncture / 10/01/2021 1:55 2021 2:03 Unknown Unknown PM CDT PM CDT Umair Salinas PA-C LAB - BLOOD ORDERABLES Performing Organization Address City/[facility]/[place] [phone] Care Lab [address] Lab (1st floor, no room number) (ABNORMAL) UA with Microscopic reflex to Culture (10/01/2021 1:45 PM CDT) Patholo gist Method Time Signature Color Urine Yellow Colorless, 10/01/2021 LABORATORY Straw, 2:28 PM CDT Light Yellow, Yellow Appearance Urine Clear Clear 10/01/2021 [facility] LABORATOR Y 2:28 PM CDT Glucose Urine >=1000 (A) Negative 10/01/2021 LABORATORY mg/dL 2:28 PM CDT Bilirubin Urine Negative Negative 10/01/2021 LABORATORY 2:28 PM CDT Ketones Urine 10 (A) Negative 10/01/2021 LABORATORY mg/dL 2:28 PM CDT Specific [place] 1.023 1.003 - 10/01/2021 [facility] LABORATOR Y Urine 1.035 2:28 PM CDT Blood Urine Negative Negative 10/01/2021 LABORATORY 2:28 PM CDT pH Urine 7.5 (H) 5.0 - 7.0 10/01/2021 LABORATORY 2:28 PM CDT Protein Albumin 100 (A) Negative 10/01/2021 LABORATORY Urine mg/dL 2:28 PM CDT Urobilinogen Normal Normal, 2.0 10/01/2021 LABORATORY Urine mg/dL 2:28 PM CDT Nitrite Urine Negative Negative 10/01/2021 LABORATORY 2:28 PM CDT Leukocyte Negative Negative 10/01/2021 LABORATORY Esterase Urine 2:28 PM CDT Mucus Urine Present (A) None Seen 10/01/2021 LABORATORY /LPF 2:28 PM CDT RBC Urine 1 <=2 /HPF 10/01/2021 LABORATORY 2:28 PM CDT WBC Urine 1 <=5 /HPF 10/01/2021 LABORATORY 2:28 PM CDT Squamous <1 <=1 /HPF 10/01/2021 LABORATORY Epithelials 2:28 PM CDT Urine Specimen Anatomical Collection Method Collection Time Receive d Time (Source) Location / / Volume Laterality Urine MID-STREAM URINE Non-blood 10/01/2021 1:45 PM 10/01 2:15 SAMPLE / Unknown Collection / CDT PM CDT Unknown Narrative LABORATORY - 10/01/2021 2:28 PM CDT Urine Culture not indicated Umair Salinas PA-C LAB - URINE ORDERABLES Performing Organization Address City/State/ZIP Code [place] [phone] Care Lab [address] Lab (1st floor, no room number) documented in this encounter Visit Diagnoses Diagnosis Alcohol dependence with uncomplicated wi thdrawal (H) - Primary Other and unspecified alcohol dependence , unspecified drinking behavior Seizure (H) Other convulsions Hyperglycemia Other abnormal glucose Elevated LFTs Other abnormal blood chemistry documented in this encounter Admitting Diagnoses Diagnosis Elevated LFTs Other abnormal blood chemistry documented in this encounter Administered Medications Inactive Administered Medications - up to 3 most recent administrations Medication Order MAR Action Action Date Dose Rate Site 0.9% sodium chloride BOLUS New Bag 10/01/2021 2:24 PM CDT 1,000 mLs 1000 mL/hr Intravenous, 1,000 mL, ONCE, at 1,000 mL/hr, Administer over 1 Hours, On Sat10/01/21 at 1425, For 1 dose acetaminophen (TYLENOL) Suppository 650 mg 650 mg, Rectal, EVERY 6 HOURS PRN, mild pain, other, and adjunct with moderate or severe pain or per patient request, Star ting on Sat10/01/21 at 1928, Alternate with ibuprofen if ordered. Maximum acetaminop hen dose from all sources = 75 mg/kg/day not to exceed 4 grams/day. acetaminophen (TYLENOL) tablet 650 mg Given 10/03/2021 8:54 PM CDT 650 mg 650 mg, Oral, EVERY 6 HOURS PRN, mild pain, other, and adjunct with moderate or severe pain or per patient request, Starting on Sat10/01/21 at 1928, Alternate with ibuprofen if ordered. Maximum acetaminophen dose from all sources = 75 mg/kg/day not to exceed 4 grams/day. Given 10/03/2021 12:14 PM CDT 650 mg benzocaine-menthol (CHLORASEPTIC) 6-10 MG Given 2021 9:32 PM CDT 1 lozenge lozenge 1 lozenge 1 lozenge, Buccal, EVERY 1 HOUR PRN, sore throat, Starting on Sat10/04/21 at 2124 cloNIDine (CATAPRES) tablet 0.1 mg Given 10/05/2021 8:09 AM CDT 0.1 mg 0.1 mg, Oral, 2 TIMES DAILY, First dose on Sat10/03/21 at 0330 Given 10/04/2021 8:40 PM CDT 0.1 mg Given 10/04/2021 9:36 AM CDT 0.1 mg famotidine (PEPCID) tablet 20 mg Given 10/05/2021 8:09 AM CDT 20 mg 20 mg, Oral, 2 TIMES DAILY, First dose on Sat10/04/21 at 1100 Given 10/04/2021 8:40 PM CDT 20 mg Given 10/04/2021 11:05 AM CDT 20 mg folic acid (FOLVITE) tablet 1 mg Given 10/01/2021 6:34 PM CDT 1 mg 1 mg, Oral, ONCE, On Sat10/01/21 at 1655, For 1 dose folic acid (FOLVITE) tablet 1 mg Given 10/05/2021 8:09 AM CDT 1 mg 1 mg, Oral, DAILY, First dose on Sat10/02/21 at 0900, If patient is unable to tolerate oral folic acid, an intravenous dose of folic acid should be considered. Contact provider to change to IV if patient unable to take PO. Given 10/04/2021 9:36 AM CDT 1 mg Given 10/03/2021 8:37 AM CDT 1 mg gabapentin (NEURONTIN) capsule 600 mg Given 10/05/2021 9:30 AM CDT 600 mg 600 mg, Oral, EVERY 8 HOURS, First dose on Sat10/05/21 at 0200, For 6 doses Given 10/05/2021 1:19 AM CDT 600 mg gabapentin (NEURONTIN) capsule 900 mg Given 10/04/2021 4:22 PM CDT 900 mg 900 mg, Oral, EVERY 8 HOURS, First dose on Sat10/02/21 at 0200, For 9 doses Given 10/04/2021 9:36 AM CDT 900 mg Given 10/04/2021 1:17 AM CDT 900 mg gabapentin (NEURONTIN) tablet 1,200 mg Given 10/01/2021 8:25 PM CDT 1,200 mg 1,200 mg, Oral, ONCE, On Sat10/01/21 at 1930, For 1 dose gadobutrol (GADAVIST) injection 8.47 mL Given 10/02/2021 7:29 PM CDT 8.5 mLs 8.47 mL (0.1 mL/kg ? 84.7 kg), Intravenous, ONCE, On Sat10/02/21 at 1930, For 1 dose, Supplied by, and administered by MRI. haloperidol lactate (HALDOL) injection 2 .5-5 mg 2.5-5 mg, Intravenous, EVERY 6 HOURS PRN , other, hallucinations, IF unable to take oral, Administer over 1 Minutes, Startin g on 10/01/21 at 1928, For CIWA Visual Disturbance Score 0-3, give NO Haloperid ol For Visual Disturbance Score 4-5, give Haloperidol 2.5 mg IV and repeat scale i n 1 hour For Visual Disturbance Score 6-7, give Haloperidol 5 mg IV and repeat scale in 1 hour MA X: 40 mg in 24 hours LORazepam (ATIVAN) injection 1-2 mg Given 10/01/2021 7:32 PM CDT 2 mg 1-2 mg, Intravenous, EVERY 30 MIN PRN, other, per CIWA-Ar score, Starting on 10/01/21 at 1928, Oral dosing is the preferred route of administration. Dose according to CIWA-Ar score: For CIWA-Ar Score LESS THAN OR EQUAL TO 7: ~ NO LORazepam (ATIVAN) is to be administered and ~ repeat CIWA-Ar scale in 4 hours and PRN For CIWA-Ar Score 8-12: ~ give LORazepam (ATIVAN) 1 mg PO or IV and ~ repeat CIWA-Ar scale in 1 hour For CIWA-Ar Score 13-15: ~ give LORazepam (ATIVAN) 2 mg PO or IV ~ and repeat CIWA-Ar scale in 30 minutes For CIWA-Ar Score GREATER THAN OR EQUAL TO 16: ~ give LORazepam (ATIVAN) 2 mg PO or IV and ~ repeat CIWA-Ar scale in 30 minutes Doses should be withheld for nystagmus, sedation, ataxia, dysarthria or respiratory rate less than 12. If dose is being held more than once, provider must be notified. This drug may cause significant respiratory depression. Monitor respiratory status and vital signs carefully for 1 hour after each dose. LORazepam (ATIVAN) injection 2 mg Given 10/01/2021 8:35 PM CDT 2 mg 2 mg, Intravenous, EVERY 5 MIN PRN, seizures, Starting on 10/01/21 at 1404, Administer dose and notify provider. This drug may cause significant respiratory depression. Monitor respiratory status and vital signs carefully for 1 hour after each dose. Given 10/01/2021 6:34 PM CDT 2 mg Given 10/01/2021 4:53 PM CDT 2 mg LORazepam (ATIVAN) tablet 1-2 mg Given 10/03/2021 1:29 AM CDT 1 mg 1-2 mg, Oral, EVERY 30 MIN PRN, other, per CIWA-Ar score., Starting on Sat10/01/21 at 1928, Oral dosing is the preferred route of administration. Dose according to CIWA-Ar score: For CIWA-Ar Score LESS THAN OR EQUAL TO 7: ~ NO LORazepam (ATIVAN) is to be administered and ~ repeat CIWA-Ar scale in 4 hours and PRN For CIWA-Ar Score 8-12: ~ give LORazepam (ATIVAN) 1 mg PO or IV and ~ repeat CIWA-Ar scale in 1 hour For CIWA-Ar Score 13-15: ~ give LORazepam (ATIVAN) 2 mg PO or IV ~ and repeat CIWA-Ar scale in 30 minutes For CIWA-Ar Score GREATER THAN OR EQUAL TO 16: ~ give LORazepam (ATIVAN) 2 mg PO or IV and ~ repeat CIWA-Ar scale in 30 minutes Doses should be withheld for nystagmus, sedation, ataxia, dysarthria or respiratory rate less than 12. If dose is being held more than once, provider must be notified. Given 10/02/2021 11:04 PM CDT 1 mg Given 10/02/2021 8:56 PM CDT 1 mg multivitamin w/minerals (THERA-VIT-M) Given 10/01/2021 6:34 PM C DT 1 tablet tablet 1 tablet 1 tablet, Oral, ONCE, On Sat10/01/21 at 1655, For 1 dose multivitamin w/minerals (THERA-VIT-M) Given 10/05/2021 8:09 AM C DT 1 tablet tablet 1 tablet 1 tablet, Oral, DAILY, First dose on Sat10/02/21 at 0900, If patient is unable to tolerate oral multivitamins, an intravenous dose of multivitamins should be considered. Contact provider to change to IV if patient unable to take PO. Given 10/04/2021 9:36 AM CDT 1 tablet Given 10/03/2021 8:37 AM CDT 1 tablet naloxone (NARCAN) injection 0.2 mg 0.2 mg, Intravenous, EVERY 2 MIN PRN, op ioid reversal, Starting on Sat10/04/21 at 1335, Administer intravenous route when available and notify provider when administered. For unintended sedation or respiratory depression if all of the below criteria are met: ~ respiratory rate LES S than or EQUAL to 8. ~SaO2 less than 92% and or/end-tidal CO2 is greater than 50. ~ the patient is receiving an opioid, has unintended sedations assessed as RASS (-3), and is cur rently not on mechanical ventilation. RASS scale moderate (-3) is movement or eye opening to voice but no eye contact. Patient Monitoring Once the patient has demonstrated a response to the naloxone, continue to monitor respiratory rate, depth, oxygen saturation and end-tidal CO2 (if available) every 15 mi nutes x 2, then every 30 minutes x 2, then every 1 hour x 1 after each naloxone dose. Consider tr ansfer to ICU if patient respiratory parameters have not improved after 4 nalox one doses. naloxone (NARCAN) injection 0.2 mg 0.2 mg, Intramuscular, EVERY 2 MIN PRN, opioid reversal, Starting on Sat10/04/21 at 1335, Administer intramuscular if an int ravenous route is not available and notify provider when administered. For unintend ed sedation or respiratory depression if all of the below criteria are met: ~ respiratory rate LESS than or EQUAL to 8. ~SaO2 less than 92% and or/end-tidal CO2 is greater th an 50. ~ the patient is receiving an opioid, has unintended sedations assessed as RASS (-3), and is currently not on mechanical ventilation. RASS scale moderate (-3) is movement or eye opening to voice but no eye contact. Patient Monitoring Once the patient has demonstrated a response to the naloxone, continue to m onitor respiratory rate, depth, oxygen saturation and end-tidal CO2 (if availab le) every 15 minutes x 2, then every 30 minutes x 2, then every 1 hour x 1 after each naloxone dose. Consider transfer to ICU if patient respiratory parameters have not improved after 4 naloxone doses. naloxone (NARCAN) injection 0.4 mg 0.4 mg, Intravenous, EVERY 2 MIN PRN, op ioid reversal, Starting on Sat10/04/21 at 1335, Administer intravenous route when available and notify provider when administered. For unintended sedation or respiratory depression if all of the below criteria are met: ~ respiratory rate LES S than or EQUAL to 8. ~ SaO2 less than 92% and or/end-tidal CO2 is greater than 50. ~ the patient is receiving an opioid, has unintended sedation assessed as RASS (-4 ) or (-5) and patient is currently not on mechanical ventilation. RASS scale (-4) is deep sedation with no response to voice but movement or eye opening to physical stimulation. R ASS scale (-5) is unarousable. Patient Monitoring Once the patient has demonstrated a response to the naloxone, continue to monitor respiratory rate, depth, oxygen saturation and end-tidal CO2 (if available) every 15 mi nutes x 2, then every 30 minutes x 2, then every 1 hour x 1 after each naloxone dose. Consider tr ansfer to ICU if patient respiratory parameters have not improved after 4 nalox one doses. naloxone (NARCAN) injection 0.4 mg 0.4 mg, Intramuscular, EVERY 2 MIN PRN, opioid reversal, Starting on Sat10/04/21 at 1335, Administer intramuscular if an int ravenous route is not available and notify provider when administered. For unintend ed sedation or respiratory depression if all of the below criteria are met: ~ res piratory rate LESS than or EQUAL to 8. ~ SaO2 less than 92% and or/end-tidal CO2 is greater ish n 50. ~ the patient is receiving an opioid, has unintended sedation assessed as RASS (-4) or (-5) and patient is currently not on mechanical ventilation. RA SS scale (-4) is deep sedation with no response to voice but movement or eye opening to physical stimulation. RASS scale (-5) is unarousa ble. Patient Monitoring Once the patient has demonstrated a response to the nalox one, continue to monitor respiratory rate, depth, oxygen saturation and end-tidal CO2 (if availab le) every 15 minutes x 2, then every 30 minutes x 2, then every 1 hour x 1 after each naloxone dose. Consider transfer to ICU if patient respiratory parameters have not improved after 4 naloxone doses. OLANZapine zydis (zyPREXA) ODT half-tab 5-10 mg 5-10 mg, Oral, EVERY 6 HOURS PRN, other, hallucination s, IF able to take oral, Starting on Sat10/01/21 at 1928, For CIWA Visual Distu rbance Score 0-3, Give NO OLANZapine zydis (ZYPREXA) For Visual Di sturbance Score 4-5, give OLANZapine zydis (ZYPREXA) 5 mg ODT and repeat scale in 1 hour For Visu al Disturbance Score 6-7, give OLANZapine zydis (ZYPREXA) 10 mg ODT and repeat s che in 1 hour With dry hands, peel back foil backing and gently remove tablet . Do not push oral disintegrating tablet through foil backi ng. Administer immediately on tongue and oral disintegrating tablet dissolves in seconds, then swallow with saliva. Liquid not required. ondansetron (ZOFRAN) injection 4 mg 4 mg, Intravenous, EVERY 6 HOURS PRN, nausea, vomiting , Administer over 2-5 Minutes, Starting on Sat10/01/21 at 1928 , Give IF patient unable to tolerate oral medication. This is Step 1 of nausea and vomiting pantera gement. If nausea not resolved in 15 minutes, go to Step 2 prochlorperazine (COMPAZINE). Irritant. ondansetron (ZOFRAN-ODT) ODT tab 4 mg 4 mg, Oral, EVERY 6 HOURS PRN, nausea, v omiting, Starting on Sat10/01/21 at 1928, This is Step 1 of nausea and vomiting management. If n ausea not resolved in 15 minutes, go to Step 2 prochlorperazine ( COMPAZINE). With dry hands, peel back foil backing and gently remove tablet. Do not push oral disintegrating tablet through foil backing. Administer immediately on tongue and ora l disintegrating tablet dissolves in seconds, then swallow with saliva. Liquid not required. oxyCODONE IR (ROXICODONE) half-tab 2.5 m g Given 10/04/2021 9:17 PM CDT 2.5 mg 2.5 mg, Oral, EVERY 6 HOURS PRN, moderate to severe pain, Starting on Sat10/04/21 at 1334 Given 10/04/2021 1:54 PM CDT 2.5 mg sodium chloride (PF) 0.9% PF flush 3 mL Given 10/05/2021 8:10 AM CDT 3 mLs 3 mL, Intracatheter, EVERY 8 HOURS, First dose on Sat10/01/21 at 1930, to lock peripheral IV dormant line Given 10/05/2021 1:20 AM CDT 3 mLs Given 10/04/2021 4:24 PM CDT 3 mLs sodium chloride 0.9% infusion Rate/Dose Verify 10/03/2021 8:11 AM CDT 100 mL/hr at 100 mL/hr, Intravenous, CONTINUOUS, Starting on Sat10/01/21 at 2030, Until Sat10/03/21 at 1305 New Bag 10/03/2021 1:28 AM CDT 100 mL/hr New Bag 10/02/2021 2:44 PM CDT 100 mL/hr 100 mL/hr sodium phosphate (NaPHOS) 15 mMol New Bag 10/01/2021 11:05 PM CDT 15 mmol 40 mL/hr in 250 mL D5W PREMADE infusion 15 mmol, Intravenous, ONCE, Administer over 6 Hours, On Sat10/01/21 at 2230, For 1 dose, Phosphorus level 1.1-1.9 Recheck phosphorus level 4 hours following the end of the infusion. Ordered from the Phosphorus replacement order set. Each mmol of phosphate provides 1.33 mEq of Sodium. Multiply the patient's phosphate dose by 1.33 to determine the amount of sodium in this dose., Phosphorus Replacement: Phosphorus level 1.1-1.9 and CrCl GREATER than or EQUAL to 40 mL/min., Recheck: Phosphorus level 4 hours after end of infusion thiamine (B-1) tablet 100 mg Given 10/01/2021 6:39 PM CDT 100 mg 100 mg, Oral, ONCE, On Sat10/01/21 at 1655, For 1 dose thiamine (B-1) tablet 100 mg Given 10/05/2021 8:09 AM CDT 100 mg 100 mg, Oral, DAILY, First dose on Sat10/02/21 at 0900, For 4 days, If patient is unable to tolerate oral thiamine, an intravenous dose of thiamine should be considered. Contact provider to change to IV if patient unable to take PO. Given 10/04/2021 9:36 AM CDT 100 mg Given 10/03/2021 8:36 AM CDT 100 mg documented in this encounter Active and Recently Administered Medications Times are shown in CDT. Scheduled Medication Order 10/03/2021 10/04/2021 10/05/2021 cloNIDine (CATAPRES) tablet 0.1 mg 0342 (Given - Provi mariah: Jessica Ceron RN)0803 (Given - Provider: Yelena Lee RN)980 (Given - Provider: Araceli Larry RN) 0936 (Given - Provider: Ander Duncan RN)204 (Given - Provider: Glendy Paredes, RN) 0809 (Given - Provider: Ander Duncan RN) 0.1 mg, Oral, 2 TIMES DAILY, First dose on Tu10/03/21 at 0330 famotidine (PEPCID) tablet 20 mg 1105 (G iven - Provider: Ander Duncan RN)2039 (Given - Provider: Glendy Paredes RN) 0809 (Given - Provider: Ander Duncan RN) 20 mg, Oral, 2 TIMES DAILY, First dose on Sat10/04/21 at 1100 folic acid (FOLVITE) tablet 1 mg 0837 (Given - Provider: Celia Lee RN) 0936 (Given - Provider: Ander Duncan RN) 0809 (Given - Provider: Ander Duncan RN) 1 mg, Oral, DAILY, First dose on 09/13 at 0900, If patient is unable to tolerate oral folic acid, an intravenous dose of folic acid should be considered. Contact provider to change to IV if patient unable to take PO. gabapentin (NEURONTIN) capsule 100 mg 100 mg, Oral, EVERY 8 HOURS, First dose on Sat10/09/21 at 0200, For 9 doses gabapentin (NEURONTIN) capsule 300 mg 300 mg, Oral, EVERY 8 HOURS, First dose on 10/07/21 at 0200, For 6 doses gabapentin (NEURONTIN) capsule 600 mg 0119 (Given - Provider: Rl Varela RN)0930 (Given - Provider: Ander Duncan RN) 600 mg, Oral, EVERY 8 HOURS, First dose on Joann 10/05/21 at 0200, For 6 doses gabapentin (NEURONTIN) capsule 900 mg (COMPLETED) 0129 (Given - Provider: Jessica Ceron RN)0836 (Given - Provider: Yelena Lee RN)1642 (Given - Provider: Araceli Larry RN) 0117 (Given - Provider: Chung Choudhury RN)0936 (Given - Provider: Ander Duncan RN)1622 (Given - Provider: Glendy Paredes RN) 900 mg, Oral, EVERY 8 HOURS, First dose on Sat10/02/21 at 0200, For 9 doses multivitamin w/minerals (THERA-VIT-M) tablet 1 tablet 0837 (Given - Provider: Yelena Lee RN) 0936 (Given - Provider: Ander Duncan, RN) 0809 (Gi radha - Provider: Ander Duncan, RN) 1 tablet, Oral, DAILY, First dose on Sat10/02/21 at 0900, If patient is unable to tolerate oral multivitamins, an intravenous dose of multivitamins should be considered. Contact provider to change to IV if patient unable to take PO. sodium chloride (PF) 0.9% PF flush 3 mL 0342 (Not Give n - Provider: Jessica Ceron RN - Reason: No IV Access)0745 (Not Given - Provider: Yelena Lee RN - Reason: IV Infusing)1643 (Given - Provider: Araceli Larry RN) 0119 (Given - Provider: Chung Choudhury, WALTER)0936 (Given - Provider: Ander Duncan, WALTER)1624 (Given - Provider: Glendy Paredes RN) 0120 (Given - Provider: Rl Rogers RN)0810 (Given - Provider: Ander Duncan, WALTER) 3 mL, Intracatheter, EVERY 8 HOURS, Firs t dose on Sat10/01/21 at 1930, to lock peripheral IV dormant line thiamine (B-1) tablet 100 mg (COMPLETED) 0836 (Given - Provider: Yelena Lee RN) 0936 (Given - Provider: Ander Duncan, WALTER) 0809 (Gi radha - Provider: Ander Duncan, WALTER) 100 mg, Oral, DAILY, First dose on Sat at 0900, For 4 days, If patient is unable to tolerate oral thiamine, an intravenous dose of thiamine should be considered. Contact provider to change to IV if patient unable to take PO. Continuous Medication Order 10/03/2021 10/04/2021 10/05/2021 sodium chloride 0.9% infusion (CANCELED) 0128 (New Bag - Provider: Jessica Ceron RN)0811 (Rate/Dose Verify - Provider: Mirta Campos LPN)1342 (Stopped - Provider: Mirta G Dehn, [employer] SUPERINTENDENT) at 100 mL/hr, Intravenous, CONTINUOUS, S tarting on Sat10/01/21 at 2030, Until Sat10/03/21 at 1305 PRN Medication Order 10/03/2021 10/04/2021 10/05/2021 acetaminophen (TYLENOL) Suppository 650 mg(Linked Grou p 1) 1213 (See Alternative - Provider: Mirta Campos LPN)2053 (See Alternative - Provider: Araceli Larry RN) 650 mg, Rectal, EVERY 6 HOURS PRN, mild pain, other, and adjunct with moderate or severe pain or per patient request, Starting on Sat10/01/21 at 1928, Alternate with ibuprofen if ordered. Maximum acetam inophen dose from all sources = 75 mg/kg/day not to exceed 4 gra ms/day. acetaminophen (TYLENOL) tablet 650 mg(Linked Group 1) 1213 (Given - Provider: Mirta Campos LPN)2053 (Given - Provider: Araceli Larry RN) 650 mg, Oral, EVERY 6 HOURS PRN, mild pa in, other, and adjunct with moderate or severe pain or per patient request, Starting on Sat10/01/21 at 1928, Alternate with ibuprofen if ordered. Maximum acetamin ophen dose from all sources = 75 mg/kg/day not to exceed 4 grams /day. benzocaine-menthol (CHLORASEPTIC) 6-10 MG lozenge 1 lozenge 2131 (Given - Provider: Glendy Paredes RN) 1 lozenge, Buccal, EVERY 1 HOUR PRN, sor e throat, Starting on Sat10/04/21 at 2123 flumazenil (ROMAZICON) injection 0.2 mg 0.2 mg, Intravenous, EVERY 1 MIN PRN, be nzodiazepine reversal, Administer over 1 Minutes, Starting on Sat10/01/21 at 1928, Give if patient unarousable, RR less than 8, or appears to be approaching respi ratory arrest. Give over 15 secs. If mami dequate response after 45 seconds, may repeat q1min (MAX total dose: 1 mg). Continue monitoring for a minimum of 2 hours. Notify MD if administered. Irritant. Use with caution in patients on benzodiazepine therapy. haloperidol lactate (HALDOL) injection 2.5-5 mg(Linked Group 2) 2.5-5 mg, Intravenous, EVERY 6 HOURS PRN , other, hallucinations, IF unable to take oral, Administer over 1 Minutes, Starting on 10/01/21 at 1928, For CIWA Visual Disturbance Score 0-3, give NO Halope ridol For Visual Disturbance Score 4-5, give Haloperidol 2.5 mg IV and repeat scale in 1 hour For Visual Disturbance Score 6-7, give Haloperidol 5 mg IV and repeat scale in 1 hour MAX: 40 mg in 24 hours lidocaine (LMX4) cream Topical, EVERY 1 HOUR PRN, pain, with VA D insertion, Starting on 10/01/21 at 1928, Apply at least 30 minutes prior to VAD insertion in divided doses as needed for size of site for insertion. MAX Dose : 2.5 g (?? of 5 g tube) Do NOT give if patient has a history of allergy to any local anesthetic or any erwin product. Do NOT use both lidocaine intradermal/subcutaneous injection and the lidocaine cream on the same site. lidocaine 1 % 0.1-1 mL 0.1-1 mL, Other, EVERY 1 HOUR PRN, mild pain with VAD insertion, Starting on 10/01/21 at 1928, MAX dose 1 mL subcutaneous OR intradermal along the side of the vein in divided doses as needed for VAD insertion. Do NOT give if patient has a history of allergy to any local anesthetic or any erwin product. Do NOT use both lidocaine intradermal/subcutaneous injection and the lidocaine cream on the same site. LORazepam (ATIVAN) injection 1-2 mg(Linked Group 3) 08 12 (See Alternative - Provider: Jessica Ceron RN) 1-2 mg, Intravenous, EVERY 30 MIN PRN, o ther, per CIWA-Ar score, Starting on 10/01/21 at 1928, Oral dosing is the preferred route of administration. Dose according to CIWA-Ar score: For CIWA-Ar Score LESS THAN OR EQUAL TO 7: ~ NO LORazepam (ATIVAN) is to be administered and ~ repeat CIWA-Ar scale in 4 hours and PRN For CIWA-Ar Score 8-12: ~ give LORazepam (ATIVAN) 1 mg PO or IV and ~ repeat CIWA-Ar scale in 1 hour For CIWA-Ar Score 13-15 : ~ give LORazepam (ATIVAN) 2 mg PO or IV ~ and repeat CIWA-Ar scale in 30 minutes For CIWA-Ar Score GREATER THAN OR EQUAL TO 16: ~ give LORazepam (ATIVAN) 2 mg P O or IV and ~ repeat CIWA-Ar scale in 30 minutes Doses should be withheld for nystagmus, sedation, ataxia, dysarthria or respiratory rate less than 12. If dose is being held more than once, provider mus t be notified. This drug may cause signi ficant respiratory depression. Monitor respiratory status and vital signs carefully for 1 hour after each dose. LORazepam (ATIVAN) injection 2 mg 2 mg, Intravenous, EVERY 5 MIN PRN, seiz ures, Starting on 10/01/21 at 1404, Administer dose and notify provider. This drug may cause significant respiratory depression. Monitor respiratory status and vital signs carefully for 1 hour after each dose. LORazepam (ATIVAN) tablet 1-2 mg(Linked Group 3) 0129 (Given - Provider: Jessica Ceron RN) 1-2 mg, Oral, EVERY 30 MIN PRN, other, p er CIWA-Ar score., Starting on 10/01/21 at 1928, Oral dosing is the preferred route of administration. Dose according to CIWA-Ar score: For CIWA-Ar Score LESS THAN OR EQUAL TO 7: ~ NO LORazepam (ATIV AN) is to be administered and ~ repeat CIWA-Ar scale in 4 hours and PRN For CIWA-Ar Score 8-12: ~ give LORazepam (ATIVAN) 1 mg PO or IV and ~ repeat CIWA-Ar scale in 1 hour For CIWA-Ar Score 13-15: ~ gi ve LORazepam (ATIVAN) 2 mg PO or IV ~ and repeat CIWA-Ar scale in 30 minutes For CIWA-Ar Score GREATER THAN OR EQUAL TO 16: ~ give LORazepam (ATIVAN) 2 mg PO or I V and ~ repeat CIWA-Ar scale in 30 minut es Doses should be withheld for nystagmus, sedation, ataxia, dysarthria or respiratory rate less than 12. If dose is being held more than once, provider must be notified. melatonin tablet 5 mg 5 mg, Oral, EVERY EVENING PRN, sleep, Starting on 10/01/21 at 1928 naloxone (NARCAN) injection 0.2 mg(Linked Group 4) 0.2 mg, Intravenous, EVERY 2 MIN PRN, op ioid reversal, Starting on Sat10/04/21 at 1335, Administer intravenous route when available and notify provider when administered. For unintended sedation or resp iratory depression if all of the below c riteria are met: ~ respiratory rate LESS than or EQUAL to 8. ~SaO2 less than 92% and or/end-tidal CO2 is greater than 50. ~ the patient is receiving an opioid, ventura s unintended sedations assessed as RASS (-3), and is currently not on mechanical ventilation. RASS scale moderate (-3) is movement or eye opening to voice but no eye contact. Patient Monitoring Once the patient has demonstrated a response to the naloxone, continue to monitor respiratory rate, depth, oxygen saturation and end-tidal CO2 (if available) every 15 minutes x 2, then every 30 minutes x 2, the n every 1 hour x 1 after each naloxone d ose. Consider transfer to ICU if patient respiratory parameters have not improved after 4 naloxone doses. naloxone (NARCAN) injection 0.2 mg(Linked Group 4) 0.2 mg, Intramuscular, EVERY 2 MIN PRN, opioid reversal, Starting on Sat10/04/21 at 1335, Administer intramuscular if an intravenous route is not available and notify provider when administered. For uni ntended sedation or respiratory depressi on if all of the below criteria are met: ~ respiratory rate LESS than or EQUAL to 8. ~SaO2 less than 92% and or/end-tidal CO2 is greater than 50. ~ the patient is receiving an opioid, has unintended sed ations assessed as RASS (-3), and is currently not on mechanical ventilation. RASS scale moderate (-3) is movement or eye opening to voice but no eye contact. Pat ient Monitoring Once the patient has dem onstrated a response to the naloxone, continue to monitor respiratory rate, depth, oxygen saturation and end-tidal CO2 (if available) every 15 minutes x 2, then e very 30 minutes x 2, then every 1 hour x 1 after each naloxone dose. Consider transfer to ICU if patient respiratory parameters have not improved after 4 naloxone doses. naloxone (NARCAN) injection 0.4 mg(Linked Group 4) 0.4 mg, Intravenous, EVERY 2 MIN PRN, op ioid reversal, Starting on Sat10/04/21 at 1335, Administer intravenous route when available and notify provider when administered. For unintended sedation or resp iratory depression if all of the below c riteria are met: ~ respiratory rate LESS than or EQUAL to 8. ~ SaO2 less than 92% and or/end-tidal CO2 is greater than 50. ~ the patient is receiving an opioid, h as unintended sedation assessed as RASS (-4) or (-5) and patient is currently not on mechanical ventilation. RASS scale (-4) is deep sedation with no response to voice but movement or eye opening to phy sical stimulation. RASS scale (-5) is un arousable. Patient Monitoring Once the patient has demonstrated a response to the naloxone, continue to monitor respiratory rate, depth, oxygen saturation and end -tidal CO2 (if available) every 15 minut es x 2, then every 30 minutes x 2, then every 1 hour x 1 after each naloxone dose. Consider transfer to ICU if patient respiratory parameters have not improved after 4 naloxone doses. naloxone (NARCAN) injection 0.4 mg(Linked Group 4) 0.4 mg, Intramuscular, EVERY 2 MIN PRN, opioid reversal, Starting on Sat10/04/21 at 1335, Administer intramuscular if an intravenous route is not available and notify provider when administered. For uni ntended sedation or respiratory depressi on if all of the below criteria are met: ~ respiratory rate LESS than or EQUAL to 8. ~ SaO2 less than 92% and or/end- tidal CO2 is greater than 50. ~ the patient i s receiving an opioid, has unintended se dation assessed as RASS (-4) or (-5) and patient is currently not on mechanical ventilation. RASS scale (-4) is deep sedation with no response to voice but moveme nt or eye opening to physical stimulatio n. RASS scale (-5) is unarousable. Patient Monitoring Once the patient has demonstrated a response to the naloxone, continue to monitor respiratory rate, depth, o xygen saturation and end-tidal CO2 (if a vailable) every 15 minutes x 2, then every 30 minutes x 2, then every 1 hour x 1 after each naloxone dose. Consider transfer to ICU if patient respiratory parameters have not improved after 4 naloxone doses. OLANZapine zydis (zyPREXA) ODT half-tab 5-10 mg(Linked Group 2) 5-10 mg, Oral, EVERY 6 HOURS PRN, other, hallucinations, IF able to take oral, Starting on Sat10/01/21 at 1928, For [facility] Visual Disturbance Score 0-3, Give NO OLANZapine zydis (ZYPREXA) For Visual Distu rbance Score 4-5, give OLANZapine zydis (ZYPREXA) 5 mg ODT and repeat scale in 1 hour For Visual Disturbance Score 6-7, give OLANZapine zydis (ZYPREXA) 10 mg ODT and repeat scale in 1 hour With dry hand s, peel back foil backing and gently rem ove tablet. Do not push oral disintegrating tablet through foil backing. Administer immediately on tongue and oral disintegrating tablet dissolves in seconds, then swallow with saliva. Liquid not required. ondansetron (ZOFRAN) injection 4 mg(Linked Group 5) 4 mg, Intravenous, EVERY 6 HOURS PRN, na usea, vomiting, Administer over 2-5 Minutes, Starting on 10/01/21 at 1928, Give IF patient unable to tolerate oral medication. This is Step 1 of nausea and vom iting management. If nausea not resolved in 15 minutes, go to Step 2 prochlorperazine (COMPAZINE). Irritant. ondansetron (ZOFRAN-ODT) ODT tab 4 mg(Linked Group 5) 4 mg, Oral, EVERY 6 HOURS PRN, nausea, v omiting, Starting on 10/01/21 at 1928, This is Step 1 of nausea and vomiting management. If nausea not resolved in 15 minutes, go to Step 2 prochlorperazine (C OMPAZINE). With dry hands, peel back foi l backing and gently remove tablet. Do not push oral disintegrating tablet through foil backing. Administer immediately on tongue and oral disintegrating tablet d issolves in seconds, then swallow with saliva. Liquid not requir ed. oxyCODONE IR (ROXICODONE) half-tab 2.5 mg 1354 (Given - Provider: Ander Duncan RN)2117 (Given - Provider: Glendy Paredes RN) 2.5 mg, Oral, EVERY 6 HOURS PRN, moderat e to severe pain, Starting on Sat10/04/21 at 1334 sodium chloride (PF) 0.9% PF flush 3 mL 3 mL, Intracatheter, EVERY 1 MIN PRN, li ne flush, other, to ensure patency or to lock dormant line, Starting on 10/01/21 at 1928 Linked Groups Order Group 1: acetaminophen (TYLENOL) tablet 650 mgJump to med 650 mg, Oral, EVERY 6 HOURS PRN, mild pa in, other, and adjunct with moderate or severe pain or per patient request, Starting on 10/01/21 at 8
Alternate with ibuprofen if ordered.&nbsp ;Maximum acetaminophen dose from all lan rces = 75 mg/kg/day not to exceed 4 grams/day.
Or acetaminophen (TYLENOL) Suppository 650 mgJump to med 650 mg, Rectal, EVERY 6 HOURS PRN, mild pain, other, and adjunct with moderate or severe pain or per patient request, Starting on 10/01/21 at 1927
Alternate with ibuprofen if ordered.&nb sp;Maximum acetaminophen dose from all s ources = 75 mg/kg/day not to exceed 4 grams/day.
Group 2: OLANZapine zydis (zyPREXA) ODT half-tab 5-10 mgJump to med 5-10 mg, Oral, EVERY 6 HOURS PRN, other, hallucinations, IF able to take oral, Starting on 10/01/21 at 8
For CIWA Visual Disturbance Score 0-3, Give NO OLANZapine zydis (ZYPREXA)&nbsp ;For Visual Disturbance Score 4-5, give OLANZapine zydis (ZYPREXA) 5 mg ODT and repeat scale in 1 hour For Visual Disturbance Score 6-7, give OLANZapine zydis (ZYPREXA) 10 mg ODT and repeat sca le in 1 hour With dry hands, peel b ack foil backing and gently remove tablet. Do not push oral disintegrating tablet through foil backing. Administer immediately on tongue and oral disintegrati ng tablet dissolves in seconds, then swa llow with saliva. Liquid not required.
Or haloperidol lactate (HALDOL) injection 2.5-5 mgJump to med 2.5-5 mg, Intravenous, EVERY 6 HOURS PRN , other, hallucinations, IF unable to take oral, Administer over 1 Minutes, Starting on 10/01/21 at 1928
For CIWA Visual Disturbance Score 0-3, give N O Haloperidol For Visual Disturban ce Score 4-5, give Haloperidol 2.5 mg IV and repeat scale in 1 hour For Visual Disturbance Score 6-7, give Haloperidol 5 mg IV and repeat scale in 1 hour MAX: 40 mg in 24 hours
Group 3: LORazepam (ATIVAN) tablet 1-2 mgJump to med 1-2 mg, Oral, EVERY 30 MIN PRN, other, p er CIWA-Ar score., Starting on 10/01/21 at 1928
Oral dosing is the preferred route of administration. Dose according to CIWA-Ar sco re: For CIWA-Ar Score LESS THAN OR EQUAL TO 7: ~ NO LORazepam (ATIVAN) is to be administered and ~ repeat CIWA-Ar scale in 4 hours and PRN For CIWA-Ar Score 8-12:&amp ;nbsp;~ give LORazepam (ATIVAN) 1 mg PO or IV and ~ repeat CIWA-Ar scale in 1 hour For CIWA-Ar Score 13-15: ~ give LORazepam (ATIVAN) 2 mg PO or IV&nbs p;~ and repeat CIWA-Ar scale in 30 minut es For CIWA-Ar Score GREATER THAN OR EQUAL TO 16: ~ give LORazepam (ATIVAN) 2 mg PO or IV and ~ repeat CIWA-Ar scale in 30 minutes& nbsp;Doses should be withheld for nystag mus, sedation, ataxia, dysarthria or respiratory rate less than 12. If dose is being held more than once, provider must be notified.
Or LORazepam (ATIVAN) injection 1-2 mgJump to med 1-2 mg, Intravenous, EVERY 30 MIN PRN, o ther, per CIWA-Ar score, Starting on 10/01/21 at 1928
Oral dosing is the preferred route of administration. Dose according to CIWA- Ar score: For CIWA-Ar Score LESS TH AN OR EQUAL TO 7: ~ NO LORazepam (ATIVAN) is to be administered and ~ repeat CIWA-Ar scale in 4 hours and PRN For CIWA-Ar Score 8-1 2: ~ give LORazepam (ATIVAN) 1 mg P O or IV and ~ repeat CIWA-Ar scale in 1 hour For CIWA-Ar Score 13-15: ~ give LORazepam (ATIVAN) 2 mg PO or IV&a mp;nbsp;~ and repeat CIWA-Ar scale in 30 minutes For CIWA-Ar Score GREATER THAN OR EQUAL TO 16: ~ give LORazepam (ATIVAN) 2 mg PO or IV and ~ repeat CIWA-Ar scale in 30 minute s Doses should be withheld for nyst agmus, sedation, ataxia, dysarthria or respiratory rate less than 12. If dose is being held more than once, provider must be notified. This drug may cause significant respiratory depression . Monitor respiratory status and vital signs carefully for 1 hour after each dose.
Group 4: naloxone (NARCAN) injection 0.2 mgJump to med 0.2 mg, Intravenous, EVERY 2 MIN PRN, op ioid reversal, Starting on Sat10/04/21 at 1335
Administer intravenous route when available and notify provider when administered. For unintended sedation or respiratory depression if a ll of the below criteria are met: ~ respiratory rate LESS than or EQUAL to 8. ~SaO2 less than 92% and or/end- tidal CO2 is greater than 50.& nbsp;~ the patient is receiving an opioi d, has unintended sedations assessed as RASS (-3), and is currently not on mechanical ventilation. RASS scale moderate (-3) is movement or eye opening to voice but no eye contact.&nbs p; Patient Monitoring Once the patient has demonstrated a response to the naloxone, continue to monitor respiratory rate, depth, oxygen satu ration and end-tidal CO2 (if available) every 15 minutes x 2, then every 30 minutes x 2, then every 1 hour x 1 after each naloxone dose. Consider transfer to ICU if patient respirator y parameters have not improved after 4 n aloxone doses.
Or naloxone (NARCAN) injection 0.4 mgJump to med 0.4 mg, Intravenous, EVERY 2 MIN PRN, op ioid reversal, Starting on Sat10/04/21 at 1335
Administer intravenous route when available and notify provider when administered. For unintended sedation or respiratory depression if a ll of the below criteria are met: ~ respiratory rate LESS than or EQUAL to 8. ~ SaO2 less than 92% and or/end- tidal CO2 is greater than 50.& nbsp;~ the patient is receiving an opioi d, has unintended sedation assessed as RASS (-4) or (-5) and patient is currently not on mechanical ventilation. RASS scale (-4) is deep sedati on with no response to voice but movemen t or eye opening to physical stimulation. RASS scale (-5) is unarousable. Patient Monitoring On ce the patient has demonstrated a respon se to the naloxone, continue to monitor respiratory rate, depth, oxygen saturation and end-tidal CO2 (if available) every 15 minutes x 2, then every 30 minutes x 2, then every 1 hour x 1 after each nalo xone dose. Consider transfer to ICU if patient respiratory parameters have not improved after 4 naloxone doses.
Or naloxone (NARCAN) injection 0.2 mgJump to med 0.2 mg, Intramuscular, EVERY 2 MIN PRN, opioid reversal, Starting on Sat10/04/21 at 1335
Administer intramuscular if an intravenous route is not available and notify provider when administered. For unintended sedation or respira tory depression if all of the below criteria are met: ~ respiratory rate LESS than or EQUAL to 8. ~SaO2 less than 92% and or/end-tidal CO2 is greater than 50. ~ the patient i s receiving an opioid, has unintended sedations assessed as RASS (-3), and is currently not on mechanical ventilation. RASS scale moderate (-3) is movement or eye opening to voice but no eye contact. Patient Monitoring Once the patient has demonstrated a response to the naloxone, continue to monitor respiratory rate, depth, oxygen saturation and end-t idal CO2 (if available) every 15 minutes x 2, then every 30 minutes x 2, then every 1 hour x 1 after each naloxone dose. Consider transfer to [facility] if patient respiratory parameters hav e not improved after 4 naloxone doses.
Or naloxone (NARCAN) injection 0.4 mgJump to med 0.4 mg, Intramuscular, EVERY 2 MIN PRN, opioid reversal, Starting on Sat10/04/21 at 1335
Administer intramuscular if an intravenous route is not available and notify provider when administered. For unintended sedation or respira tory depression if all of the below criteria are met: ~ respiratory rate LESS than or EQUAL to 8. ~ SaO2 less than 92% and or/end-tidal CO2 is greater than 50. ~ the patient i s receiving an opioid, has unintended sedation assessed as RASS (-4) or (-5) and patient is currently not on mechanical ventilation. RASS s che (-4) is deep sedation with no respo nse to voice but movement or eye opening to physical stimulation. RASS scale (-5) is unarousable. Patien t Monitoring Once the patient has d emonstrated a response to the naloxone, continue to monitor respiratory rate, depth, oxygen saturation and end-tidal CO2 (if available) every 15 minutes x 2, then every 30 minutes x 2, then every 1 hour x 1 after each naloxone dose. Consider transfer to ICU if patient respiratory parameters have not improved after 4 naloxone doses.
Group 5: ondansetron (ZOFRAN-ODT) ODT tab 4 mgJump to med 4 mg, Oral, EVERY 6 HOURS PRN, nausea, v omiting, Starting on 10/01/21 at 1928
This is Step 1 of nausea and vomiting management. If nausea not resolved in 15 minutes, go to Step 2 prochlorperazine (COMPAZINE).&nb sp;With dry hands, peel back foil backing and gently remove tablet. Do not push oral disintegrating tablet through foil backing. Administer immediately on ton edgar and oral disintegrating tablet disso lves in seconds, then swallow with saliva. Liquid not required.
Or ondansetron (ZOFRAN) injection 4 mgJump to med 4 mg, Intravenous, EVERY 6 HOURS PRN, na usea, vomiting, Administer over 2-5 Minutes, Starting on 10/01/21 at 1928
Give IF patient unable to tolerate oral medication. This is Step 1 of nausea and vomiting management. If na usea not resolved in 15 minutes, go to Step 2 prochlorperazine (COMPAZINE). Irritant.
documented in this encounter Care Teams Pillowcase Folder Relationship Specialty Start Date End Date No Ref-Primary, Physician PCP - General 10/01/21 10/18/21 Kathi Clark MD Assigned PCP 09/21/[address] [place] [address] DR ADIA RIVERA, [place] [id number] documented as of this encounter
--- OUTSIDE RECORDS SUMMARY | 2022-02-20 12:20 | XMS_ITS | Encounter Summary ---
:1980 Author Organization [facility] Address [address] [facility] [place] [address] Care Team Providers Name Role Phone [facility] Primary Care Provider [phone] Kathi Clark MD Unavailable Reason for Visit Reason Onset Date Comments Patient Request 11/16/2021 Encounter Details Date Type Department Care Team Description 11/16/2021 Telephone [facility] Raulito Flores, Patient Request [phone] [place] [address] [phone] (Wo rk) Social History Tobacco Use Types [...] this encounter Miscellaneous Notes Telephone Encounter - Dora Barger - 11/21/2021 12:01 PM CDT Pt returning call from Maria. Pt states that he thought he was using the psychiatry-addiction referral to see Raulito Tang (Psychology) and was confused. Gave pt phone number for Addiction Medicine to schedule an appt with an Addiction Medicine provider. Informed pt that Dr. Clark would like pt to dir ect his requests for withdrawal medications to his addiction medicine provider. Pt states understanding. Dora Barger,Occupational Health And Safety Adviser [facility] Telephone Encounter - Maria Mcgrath RN - 11/21/2021 7:49 AM CDT Patient Contact Attempt # 1 Was call answered? No. Left message on voicemail with information to call triage back at [phone], option 2. will call clerk back: Dr Clark message below. Maria Arevalo RN EP Triage Telephone Encounter - Kathi Clark MD - 11/17/2021 11:33 PM CDT I have already placed Psychiatry - Addiction medicine referral on day I saw the patient on 10/12/21 for his severe alcohol dependance which needs to be managed by Addiction medicine - senior sales operations analyst and not PCP. Please call the patient and let him know to call back the referral since he didn't keep up the appointment with them. [facility] will call you to coordinate your care as prescribed by your provider. If you don't hear from a sales representative leather goods within 2 business days, please call . Thank you, Kathi Clark MD on 11/17/2021 Telephone Encounter - Kathi Clark MD - 11/17/2021 11:31 PM CDT ----- Message from THERESE Mcclendon sent at 11/17/2021 11:33 AM CDT ----- Regarding: Patient request Hello Dr. Clark, I spoke with this patient today. He stated he is struggling to remain abstinent from alcohol, and stated he wished to go back on previous medication gabapentin. I informed him that he would need to speak with his primary care physician to determine if this is an appropriate medication. He states he wishes to go on it to reduce his cravings and possible withdrawal symptoms from alcohol. He was excepted to the [facility] in [place], which requires him to be alcohol free for at least 3 days prior to his beginning of the program. He stated that he will call your office later either today or nextweek to discuss this further. If you have further questions, please let me know. Thanks, Raulito Flores, Therapist Telephone Encounter - Carlos Johnson - 11/16/2021 11:28 AM CDT Pt called intake and reported he is interested in getting a prescription for something to help with Alcohol withdrawal. Pt informed we have addiction medicine providers at [facility] that could help. Pt would like a referral for that service. Pt will discuss that with Raulito Flores during visit tomorrow (). documented in this encounter Plan of Treatment Upcoming Encounters Date Type Specialty Care Team Description 02/07/2022 Virtual Visit Psychology Raulito Flores tt, CANDY BUTCHER [address] [place] [id number] (Wo rk) 02/15/2022 Ancillary Procedure Neurology Leann Schmitt MD [address] [place], [place] [id number] (Wo rk) 03/05/2022 Virtual Visit Neurology Leann Villagran MD [address] [place] [phone] (Wo rk) documented as of this encounter Visit Diagnoses Not on filedocumented in this encounter Additional Health Concerns Assessment Noted Time PHQ-9 Depression Total Score: 2 10/27/2021 8:19 AM CDT documented as of this encounter Care Teams Drapery Cutter Relationship Specialty Start Date End Date Clinic, [facility] Jaja Rowan PCP - General 10/31/[address] [place] [address] [place] [address] Katih Clark MD Assigned PCP 09/21/[address] [place] [address] [place] [id number] documented as of this encounter
--- OUTSIDE RECORDS SUMMARY | 2022-02-20 12:20 | XMS_ITS | Encounter Summary ---
:1980 Author Organization [facility] Address [address] [facility] [place] [address] Care Team Providers Name Role Phone Kathi Clark MD Primary Care Provider [facility] Primary Care Provider [phone] Kathi Clark MD Unavailable Reason for Referral Consultation (Priority: 1-2 Weeks) - Closed Specialty Diagnoses / Procedures Referred By Contact Refer red To Contact Diagnoses Seizures (H) Alcohol dependence with withdrawal with complication (H) Kathi Clark MD [address] D R NEUROLOGY [place] [phone] [place] [address] [place] [phone] Phone: Fax: Referral ID Status Reason Start Date Expiration Date Visits Requ ested Visits Authorized [id number] Closed 10/31/2021 10/31/2022 1 1 Consultation (Urgent: 3-5 Days) - Referral NOT Required Specialty Diagnoses / Procedures Referred By Contact Refer red To Contact Neurology Diagnoses Seizures (H) Alcohol dependence with withdrawal with complication (H) Kathi Clark MD [address] [place] [address] [place]ORES [phone] Referral ID Status Reason Start Date Expiration Date Visits V isits Requested Authorized [id number] Referral NOT 10/25/2021 10/25/2022 1 1 Required Reason for Visit Reason Onset Date Comments Referral 10/25/2021 Encounter Details Date Type Department Care Team Description 10/25/2021 Telephone [facility] Kathi Anderson MD Referral [place] [place] [address] [place] [address] [place] [phone] Social History Tobacco Use Types Packs/Day Years [...] this encounter Miscellaneous Notes Telephone Encounter - Kaitlynn Villalta - 10/31/2021 6:45 AM CDT Patient notified and referral faxed. Kaitlynn Mason-referral rep Telephone Encounter - Kathi Clark MD - 10/31/2021 12:15 AM CDT Jude Calderón, Appreciate the help to this patient. Signed the referral as suggested. Please call the patient and update him the same. Thank you, Kathi Clark MD on 10/31/2021 Telephone Encounter - Kaitlynn Villalta - 10/30/2021 6:[address] Clark- Can you place a new referral to the [facility]. This clinic is [facility] and patient can go there. [facility] is booked out an has no sooner appts. Pending a referral for youto sign. Thanks Kaitlynn Villalta Referral rep Telephone Encounter - Kathi Clark MD - 10/25/2021 5:18 PM CDT Placed the referral as requested and routing to Kailtynn our sales promotion coordinator who can help this pt get in sooner/ Mentioned in the referral as below - Pt opting for any extrenal Neurologist to get him sooner than 2 months which his previous referral was . Pt needs DMV clearance from Neurology. Thank you. Kathi Clark MD on 10/25/2021 at 5:17 PM Telephone Encounter - Raza Lopez - 10/25/2021 10:30 AM CDT Reason for Call: Request for an order or referral: Order or referral being requested: Neurology Date needed: as soon as possible Has the patient been seen by the PCP for this problem? YES Additional comments: [facility] neurology has a two month scheduling hold. Patient would like a referral to an outside provider. Phone number Patient can be reached at: Cell number on file: Telephone Information: Best Time: Any time Can we leave a detailed message on this number? YES Call taken on 10/25/2021 at 10:30 AM by Raza Lopez documented in this encounter Plan of Treatment Upcoming Encounters Date Type Specialty Care Team Description 02/07/2022 Virtual Visit Psychology Raulito Flores tt, TREE DRILLER [address] [place] [address] (Wo rk) 02/15/2022 Ancillary Procedure Neurology Leann Schmitt MD [address] [place] [phone] (Wo rk) 03/05/2022 Virtual Visit Neurology Leann Villagran MD [address] [place] [address] [phone] (Wo rk) Scheduled Referrals Name Type Priority Associated Diagnoses Order S chedule Adult Neurology Referral Urgent: 3-5 Days Seizures (H) Expected: Lap Polisher Referral Alcohol dependence with withdrawal with (Approx imate), complication (H) Expires: 10/25/2022 Adult Neurology Referral Priority: 1-2 Seizures (H) Expected: Lap Polisher Referral Weeks Alcohol dependence with withdrawal with (Approx imate), complication (H) Expires: 10/30/2022 documented as of this encounter Visit Diagnoses Diagnosis Seizures (H) - Primary Other convulsions Alcohol dependence with withdrawal with complication (H) documented in this encounter Additional Health Concerns Assessment Noted Time PHQ-9 Depression Total Score: 0 10/12/2021 2:01 PM CDT documented as of this encounter Care Teams Tombstone Erector Relationship Specialty Start Date End Date Kathi Clark MD PCP - General Internal Medicine 10/20/21 10/30/[address] [place] [address] [place] [phone] Clinic, [facility] [place] PCP - General 10/31/[address] [place] [address] [place] [address] Kathi Clark MD Assigned PCP 09/21/[address] [place] [address] [place] [id number] documented as of this encounter
--- OUTSIDE RECORDS SUMMARY | 2022-02-20 12:20 | XMS_ITS | Encounter Summary ---
:1980 Author Organization [facility] Address [address] [facility] [place] [address] Care Team Providers Name Role Phone [facility] Primary Care Provider [phone] Kathi Clark MD Unavailable Encounter Details Date Type Department Care Team Description 10/19/2021 [facility] Scr eening for HIV (human immunodeficiency virus); Jaja José or Need for hepatitis C screeni ng test; [address] [facility] D [facility] Screening for hyperlipidemia ; [place] Goldstein [phone] Seizures (H); [phone] Alcohol withdra wal syndrome with complication (H) Social History Tobacco Use Types Packs/Day Years [...] CDT Travel History Travel Start Travel End [place] 12/30/2021 01/12/2022 COVID-19 Exposure Response Date Recorded In the last month, have you been in contact with No / Unsure 10/19/2021 10:05 AM CDT someone who was confirmed or suspected to have Coronavirus / COVID-19? documented as of this encounter Plan of Treatment Upcoming Encounters Date Type Specialty Care Team Description 02/07/2022 Virtual Visit Psychology Raulito Flores tt, INSTRUMENT MECHANICS SUPERVISOR [address] [place] [address] (Wo rk) 02/15/2022 Ancillary Procedure Neurology Leann Schmitt MD [address] [place] [address] (Wo rk) 03/05/2022 Virtual Visit Neurology Leann Villagran MD [address] [place] [address] (Wo rk) documented as of this encounter Procedures Procedure Name Priority Date/Time Associated Diagnosis Comme nts HIV ANTIGEN ANTIBODY Routine 10/19/2021 10:13 Screening for HI V Results for this COMBO AM CDT (human immunodeficiency proc edure are in virus) the results section. HEPATITIS C SCREEN Routine 10/19/2021 10:13 Need for hepatitis C Results for this REFLEX TO HCV RNA AM CDT screening test procedur e are in QUANT AND GENOTYPE the resul ts section. TSH WITH FREE T4 Routine 10/19/2021 10:13 Seizures (H) Results for this REFLEX AM CDT procedure are i n the results section. LIPID REFLEX TO Routine 10/19/2021 10:13 Screening for Results for this DIRECT LDL PANEL AM CDT hyperlipidemia procedure are in the results section. COMPREHENSIVE Routine 10/19/2021 10:13 Alcohol withdrawal Resu lts for this METABOLIC PANEL AM CDT syndrome with procedure a re in complication (H) the results section. documented in this encounter Results (ABNORMAL) Comprehensive metabolic panel (BMP + Alb, Alk Phos, ALT, AST, Total. Bili, TP) (10/19/2021 10:13 AM CDT) [facility] Method Time Signature Sodium 138 133 - 144 10/19/2021 [facility] mmol/L 12:44 PM CDT Potassium 4.1 3.4 - 5.3 10/19/2021 [facility] mmol/L 12:44 PM CDT Chloride 100 94 - 109 10/19/2021 [facility] mmol/L 12:44 PM CDT Carbon Dioxide 31 20 - 32 10/19/2021 [facility] (CO2) mmol/L 12:44 PM CDT Anion Gap 7 3 - 14 10/19/2021 [facility] mmol/L 12:44 PM CDT Urea Nitrogen 7 7 - 30 10/19/2021 [facility] mg/dL 12:44 PM CDT Creatinine 0.66 0.66 - 10/19/2021 [facility] 1.25 mg/dL 12:44 PM CDT Calcium 9.6 8.5 - 10.1 10/19/2021 [facility] mg/dL 12:44 PM CDT Glucose 100 (H) 70 - 99 10/19/2021 [facility] mg/dL 12:44 PM CDT Alkaline 51 40 - 150 10/19/2021 [facility] Phosphatase U/L 12:44 PM CDT AST 91 (H) 0 - 45 U/L 10/19/2021 [facility] 12:44 PM CDT ALT 126 (H) 0 - 70 U/L 10/19/2021 [facility] 12:44 PM CDT Protein Total 8.9 (H) 6.8 - 8.8 10/19/2021 [facility] g/dL 12:44 PM CDT Albumin 4.4 3.4 - 5.0 10/19/2021 [facility] g/dL 12:44 PM CDT Bilirubin Total 0.6 0.2 - 1.3 10/19/2021 [facility] mg/dL 12:44 PM CDT GFR Estimate >90 >60 10/19/2021 [facility] mL/min/1.7 12:44 PM CDT 3m2 Comment: Effective July 04, 2021 eGF Rcr in adults is calculated using the 2020 CKD-EPI creatinine equation which includ es age and gender (Aura et al., NEJM, DOI: 10.1056/FVLYmg8264468) Specimen Anatomical Collection Method / Collection Time Recei heber Time (Source) Location / Volume Laterality Blood STRUCTURE OF RIGHT Venipuncture / 10/19/2021 10:13 01/2022 UPPER LIMB / Unknown AM CDT 10:13 AM CDT Unknown Kathi Clark MD LAB - BLOOD ORDERABLES Performing Organization Address City/[facility]/ZIP Code Phon e Number [facility] [place], [place] [phone] [facility] [phone] [place] [address] Lab (no room number, 1st floor of clinic) [facility] [place], [place] [phone] [facility] [place] [id number] [address] Lab (no room number, 1st floor of clinic) TSH with free T4 reflex (10/19/2021 10:13 AM CDT) P athologist Signature TSH 2.76 0.40 - 4.00 10/19/2021 [facility] mU/L 12:52 PM CDT Specimen Anatomical Collection Method / Collection Time Recei heber Time (Source) Location / Volume Laterality Blood STRUCTURE OF RIGHT Venipuncture / 10/19/2021 10:13 01/2022 UPPER LIMB / Unknown AM CDT 10:13 AM CDT Unknown Kathi Clark MD LAB - BLOOD ORDERABLES Performing Organization Address City/[facility] Code Phon e Number [facility] [place], [place] [phone] [facility] [address] [place] [address] Lab (no room number, 1st floor of clinic) [facility] [place], [place] [phone] [facility] [phone] [address] Lab (no room number, 1st floor of clinic) (ABNORMAL) Lipid panel reflex to direct LDL Fasting (10/19/2021 10:13 AM CDT) Patholo gist Method Time Signature Cholesterol 229 (H) <200 10/19/2021 [facility] mg/dL 12:44 PM CDT Triglycerides 211 (H) <150 10/19/2021 [facility] mg/dL 12:44 PM CDT Direct Measure 53 >=40 10/19/2021 [facility] HDL mg/dL 12:44 PM CDT LDL Cholesterol 134 (H) <=100 10/19/2021 [facility] Calculated mg/dL 12:44 PM CDT Non HDL 176 (H) <130 10/19/2021 [facility] Cholesterol mg/dL 12:44 PM CDT Patient Fasting > Yes 10/19/2021 [facility] RY 8hrs? 12:44 PM CDT Specimen Anatomical Collection Method / Collection Time Recei heber Time (Source) Location / Volume Laterality Blood STRUCTURE OF RIGHT Venipuncture / 10/19/2021 10:13 01/2022 UPPER LIMB / Unknown AM CDT 10:13 AM CDT Unknown Narrative [facility] - 10/19/2021 12:44 PM CDT Cholesterol Desirable: ??<200 mg/dL Triglycerides Normal: ??Less than 150 mg/dL Borderline High: ??150-199 mg/dL High: ??200-499 mg/dL Very High: ??Greater than or equal to 50 0 mg/dL Direct Measure HDL Female: ??Greater than or equal to 50 mg /dL Male: ??Greater than or equal to 40 mg/d L LDL Cholesterol Desirable: ??<100mg/dL Above Desirable: ??100-129 mg/dL Borderline High: ??130-159 mg/dL High: ??160-189 mg/dL Very High: ??>= 190 mg/dL Non HDL Cholesterol Desirable: ??130 mg/dL Above Desirable: ??130-159 mg/dL Borderline High: ??160-189 mg/dL High: ??190-219 mg/dL Very High: ??Greater than or equal to 22 0 mg/dL Kathi Clark MD LAB - BLOOD ORDERABLES Performing Organization Address City/State/ZIP Code Phon e Number [facility] [place], [place] [phone] [facility] [address] [place] [address] Lab (no room number, 1st floor of clinic) [facility] [place], [place] [phone] [facility] [place] [address], [facility] [address] Lab (no room number, 1st floor of clinic) Hepatitis C Screen Reflex to HCV RNA Quant and Genotype (10/19/2021 10:13 AM CDT) Patholo gist Method Time Signature Hepatitis C Nonreactive Nonreactive 10/20/2021 [facility] Antibody 10:03 AM CDT CORE/PROT/EN DO Specimen Anatomical Collection Method / Collection Time Recei heber Time (Source) Location / Volume Laterality Blood STRUCTURE OF RIGHT Venipuncture / 10/19/2021 10:13 01/2022 UPPER LIMB / Unknown AM CDT 10:13 AM CDT Unknown Narrative [facility] CORE/PROT/ENDO - 10/20/2021 10:03 AM CDT Assay performance characteristics have n ot been established for newborns, infants, and children. Kathi Clark MD LAB - BLOOD ORDERABLES Performing Organization Address City/State/ZIP Code Phon e Number [facility] CORE/PROT/ENDO [facility] [place], [place] [address] Core/Prot/Endo [address] [facility] [address] [facility], Room 3-580 HIV Antigen Antibody Combo (10/19/2021 10:13 AM CDT) Patholo gist Method Time Signature HIV Antigen Nonreactive Nonreactive 10/20/2021 [facility] Antibody 10:03 AM CDT CORE/PROT/EN Combo DO Comment: HIV-1 p24 Ag & HIV-1/HIV-2 Ab N ot Detected Specimen Anatomical Collection Method / Collection Time Recei heber Time (Source) Location / Volume Laterality Blood STRUCTURE OF RIGHT Venipuncture / 10/19/2021 10:13 01/2022 UPPER LIMB / Unknown AM CDT 10:13 AM CDT Unknown Kathi Clark MD LAB - BLOOD ORDERABLES Performing Organization Address City/State/ZIP Code Phon e Number [facility] CORE/PROT/ENDO Specialty [place], [place] [address] Core/Prot/Endo [address] [facility] [address] [facility], Room 3-580 documented in this encounter Visit Diagnoses Diagnosis Screening for HIV (human immunodeficienc y virus) Special screening examination for other specified viral diseases Need for hepatitis C screening test Special screening examination for other specified viral diseases Screening for hyperlipidemia Screening for lipoid disorders Seizures (H) Other convulsions Alcohol withdrawal syndrome with complic ation (H) documented in this encounter Additional Health Concerns Assessment Noted Time PHQ-9 Depression Total Score: 0 10/12/2021 2:01 PM CDT documented as of this encounter Care Teams Radio Operator Ground Relationship Specialty Start Date End Date Clinic, [facility] Jaja Rowan PCP - General 10/19/21 10/19/[address] [place] [address] [place] [address] Kathi Clark MD Assigned PCP 09/21/[address] [place] [address] [place] [phone] documented as of this encounter
--- OUTSIDE RECORDS SUMMARY | 2022-02-20 12:20 | XMS_ITS | Encounter Summary ---
:1980 Author Organization [place] Address [address] [place] [address] Care Team Providers Name Role Phone [facility] Jaja Rivera Primary Care Provider [phone] Kathi Clark MD Unavailable Reason for Visit Reason Onset Date Comments Clinic Care Coordination - Post 10/31/2021 Medicati on questions post hospital Hospital discharge Encounter Details Date Type Department Care Team Description 10/31/2021 [facility] Kathi Clark, Herlinda [facility] Jaja Rivera MD Coordination - Post [address] [facility] [address] [facility] p[facility] ([address] questions post hospital [place] [place] dischar ge) [phone] (Wo rk) Social History Tobacco Use Types [...] this encounter Miscellaneous Notes Telephone Encounter - Yael Cerrato CMA - 11/02/2021 11:36 AM CDT Sent patient MYC message. Yael Beyer CMA Telephone Encounter - Kathi Clark MD - 10/31/2021 9:34 PM CDT I have already discussed with the patient in his recent Hospital follow up visit with me on 10/12/21 that gabapentin is tapered and stopped , No further need for this. OK to continue Amlodipine for his blood pressures. To continue Thiamine and Folate for 2 more months before stopping. Thank you, Kathi Clark MD on 10/31/2021 Telephone Encounter - Dora Barger - 10/31/2021 9:59 AM CDT Pt calling to follow up on medications after hospital discharge. Pt states he was prescribed and taking gabapentin, amplodipine, folic acid, and thiamine while in the hospital and has been taking them since discharge. Pt is inquiring whether he should continue these medications. Pt would like clarification on next steps. Is an OV needed? Please let TC know whether or not to call pt and schedule a Hosp F/U appt. Dora Barger,Operations Research Director [facility] documented in this encounter Plan of Treatment Upcoming Encounters Date Type Specialty Care Team Description 02/07/2022 Virtual Visit Psychology Raulito Flores tt, CRATE REPAIRER [address] [place] [address] (Wo rk) 02/15/2022 Ancillary Procedure Neurology Leann Schmitt MD [address] [place] [address] (Wo rk) 03/05/2022 Virtual Visit Neurology Leann Villagran MD [address] [place] [phone] (Wo rk) documented as of this encounter Visit Diagnoses Not on filedocumented in this encounter Additional Health Concerns Assessment Noted Time PHQ-9 Depression Total Score: 2 10/27/2021 8:19 AM CDT documented as of this encounter Care Teams Director Of Psychology Relationship Specialty Start Date End Date Clinic, [place] Jaja Rivera PCP - General 10/31/[address] [place] [address] [place] [address] Kathi Clark MD Assigned PCP 09/21/[address] [place] [address] [place] [address] documented as of this encounter
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
--- OUTSIDE RECORDS SUMMARY | 2022-02-20 12:20 | XMS_ITS | Encounter Summary ---
:1980 Author Organization [place] Address [address] [facility] [address] Care Team Providers Name Role Phone No Ref-Primary, Physician Primary Care Provider [phone] Kathi Clark MD Unavailable Reason for Referral Consultation (Routine: Next available opening) - Referral NOT Required Specialty Diagnoses / Procedures Referred By Contact Refer red To Contact Neurology Diagnoses Seizures (H) Kathi Clark MD [address] [place] [address] [address] [place] [address] Referral ID Status Reason Start Date Expiration Date Visits V isits Requested Authorized [id number] Referral NOT 10/12/2021 10/12/2022 1 1 Required hem Dep Outpatient (Routine: Next available opening) - Closed Specialty Diagnoses / Procedures Referred By Contact Refer red To Contact Behavioral Health Diagnoses Seizures (H) Alcohol withdrawal syndrome with complication (H) Alcohol dependence with withdrawal with complication (H) Kathi Clark MD Procedures CD [address] [place] [address] Referral ID Status Reason Start Date Expiration Date Visits Requ ested Visits Authorized [id number] Closed 10/12/2021 10/12/2022 1 1 Reason for Visit Reason Comments Hospital F/U Encounter Details Date Type Department Care Team Description 10/12/2021 Office Visit [facility] Eduardo, Seizures ( H) (Primary Dx); Clinic Jaja Armenta MD Alcohol withdrawal syndrome with complic ation (H); [address] [place] [address] Alcohol d ependence with withdrawal with complication (H); [facility] Abnormal LFTs; [place] Need fo r hepatitis C screening test; [id number] Screening for hyperlipidemia; [phone] Screening for H IV (human immunodeficiency virus); (Work) Need for vaccination Social History Tobacco Use Types Packs/Day Years [...] CDT Travel History Travel Start Travel End [place] 12/30/2021 01/12/2022 COVID-19 Exposure Response Date Recorded In the last month, have you been in contact with No / Unsure 10/12/2021 12:27 PM CDT someone who was confirmed or suspected to have Coronavirus / COVID-19? documented as of this encounter Last Filed Vital Signs Vital Sign Reading Time Taken Comments Blood Pressure 130/80 10/12/2021 1:55 PM CDT Pulse 85 10/12/2021 1:00 PM CDT Temperature 36.6 ??C (97.9 ??F) 10/12/2021 1:00 PM CDT Respiratory Rate 14 10/12/2021 1:00 PM CDT Oxygen Saturation 97% 10/12/2021 1:00 PM CDT Inhaled Oxygen Concentration - - Weight 85.3 kg (188 lb) 10/12/2021 1:00 PM CDT Height 185.4 cm (6' 1) 10/12/2021 1:00 PM CDT Body Mass Index 24.8 10/12/2021 1:00 PM CDT documented in this encounter Patient Instructions Patient InstructionsKathi Clark MD - 10/12/2021 1:30 PM CDT Images from the original note were not included. As discussed, please do follow up lab work in 1 week 10/19/21 . Fasting lab. - LAB ONLY appointment . ' 'Placed referral to Neurology who can clear on your Seizure problem and help in the required DMV clearance Referral to Addiction medicine placed. Patient Education Alcohol Withdrawal Seizure Alcohol withdrawal happens when you have been drinking a lot of alcohol for days, and you then stop or cut back. This can cause seizures in some people. This is more a risk in people who drink a lot ofalcohol every day. Seizures can also be caused by alcohol, even without withdrawal. Seizures may occur as soon as a few hours after your last drink. Or they can occur up to several days later. If you have had a seizure from any cause, you are more at risk for a seizure from alcohol abuse. Seizure medicines may not prevent seizures that are caused by alcohol withdrawal. Delirium tremens (DTs) When you have a seizure due to alcohol, you are more likely to develop DTs. DTs are the worst stage of the alcohol withdrawal process. If it happens, it often starts about 3 to 5 days after your last drink. It can be life-threatening. Symptoms of DTs include: ?? Sudden and severe mental or nervous system changes ?? Uncontrollable tremors ?? Severe disorientation, confusion, hallucinations ?? Heart racing, or irregular heartbeat ?? High blood pressure ?? Heavy sweating ?? Seizures ?? Coma and Home care If you have been a heavy drinker for a long time, talk to your healthcare provider before you stop drinking. Talk to your provider if you have had serious withdrawal symptoms in the past. He or she maygive you medicine to help manage your symptoms. To care for yourself at home: ?? You will need a lot of rest and fluids over the next few days. Eat regular meals.??Do not drink any more alcohol.??During this time, it is best that you stay with family or friends who can help and support you. You can also admit yourself to an outpatient, inpatient, or residential detox program. ?? Don't drive until all symptoms are gone and you feel better. You should also not drive until you have been checked by your healthcare provider. The provider will need to make sure you do not have a seizure disorder. ?? If you were given sedative medicine to help your symptoms, don't take it more often than prescribed. Never take it with alcohol. ?? Take daily vitamins.??Heavy drinking plus poor nutrition can lead to a thiamine deficiency. This can cause permanent brain damage.??Look for vitamins that have thiamine. Follow-up care Once you have gone through the withdrawal symptoms, you have fought half of the broussard. To prevent the risk of returning to your old drinking pattern, you should get follow-up support and treatment. These resources can help you: ?? Alcoholics Anonymous offers support through a self-help fellowship. ?? [employer] offers support to families of alcohol users. Call 982-936-0310. ?? National [place] on Alcoholism and Drug Dependence (NCADD) has more information. Call 046-608-6415. You can also search the internet or check your phonebook for Drug Abuse & Treatment Centers in your area. Call 118 Call 800 if any of these occur: ?? Another seizure ?? Trouble breathing or slow, irregular breathing ?? Chest pain ?? Sudden weakness on 1 side of your body or sudden trouble speaking ?? Heavy bleeding or vomiting blood ?? Very drowsy or trouble awakening ?? Fainting or loss of consciousness ?? Rapid heart rate When to seek medical advice Call your healthcare provider right away if any of these occur: ?? Severe shakiness ?? Hallucinations ?? Fever of 100.4??F (38.0??C) or higher, or as directed by your provider ?? Headache, confusion ?? Pain in your upper abdomen that gets worse ?? Repeated vomiting [employer] last reviewed this educational content on 12/13/2018 ?? 5040-7512 The [place]. All rights reserved. This information is not intended as a substitute for professional medical care. Always follow your healthcare professional's instructions. documented in this encounter Progress Notes Kathi Clark MD - 10/12/2021 1:30 PM CDT Images from the original note were not included. Assessment and Plan 1. Seizures (H) Recent hospitalization and discharge from 10/01/21 - 10/05/21 for alcohol withdrawal and seizures , recent COVID infection . CT head normal, Consumes 1 bottle wine/day . Last labs in 10/05/21 showing abnormal LFTs , phosporus high - New problem, which patient has been discharged with Gabapentin taper. Reviewed the EEG done which soes state possible hyperthyroidism to be checked for which will do given it was not checked in the recent labs. - TSH with free T4 reflex; Future - Adult Mental Health Drapery Operator Referral; Future - Adult Neurology Drapery Operator Referral; Future 2. Alcohol withdrawal syndrome with complication (H) 4. Abnormal LFTs - Adult Mental Health Drapery Operator Referral; Future - Comprehensive metabolic panel (BMP + Alb, Alk Phos, ALT, AST, Total. Bili, TP); Future 3. Alcohol dependence with withdrawal with complication (H) - Adult Mental Health Drapery Operator Referral; Future 5. Need for hepatitis C screening test - Hepatitis C Screen Reflex to HCV RNA Quant and Genotype; Future 6. Screening for hyperlipidemia - Lipid panel reflex to direct LDL Fasting; Future 7. Screening for HIV (human immunodeficiency virus) - HIV Antigen Antibody Combo; Future 8. Need for vaccination - Pneumococcal vaccine 23 valent PPSV23 (Pneumovax) [17323] Patient Instructions As discussed, please do follow up lab work in 1 week 10/19/21 . Fasting lab. - LAB ONLY appointment . ' 'Placed referral to Neurology who can clear on your Seizure problem and help in the required DMV clearance Referral to Addiction medicine placed. Patient Education Alcohol Withdrawal Seizure Alcohol withdrawal happens when you have been drinking a lot of alcohol for days, and you then stop or cut back. This can cause seizures in some people. This is more a risk in people who drink a lot ofalcohol every day. Seizures can also be caused by alcohol, even without withdrawal. Seizures may occur as soon as a few hours after your last drink. Or they can occur up to several days later. If you have had a seizure from any cause, you are more at risk for a seizure from alcohol abuse. Seizure medicines may not prevent seizures that are caused by alcohol withdrawal. Delirium tremens (DTs) When you have a seizure due to alcohol, you are more likely to develop DTs. DTs are the worst stage of the alcohol withdrawal process. If it happens, it often starts about 3 to 5 days after your last drink. It can be life-threatening. Symptoms of DTs include: ?? Sudden and severe mental or nervous system changes ?? Uncontrollable tremors ?? Severe disorientation, confusion, hallucinations ?? Heart racing, or irregular heartbeat ?? High blood pressure ?? Heavy sweating ?? Seizures ?? Coma and Home care If you have been a heavy drinker for a long time, talk to your healthcare provider before you stop drinking. Talk to your provider if you have had serious withdrawal symptoms in the past. He or she maygive you medicine to help manage your symptoms. To care for yourself at home: ?? You will need a lot of rest and fluids over the next few days. Eat regular meals.??Do not drink any more alcohol.??During this time, it is best that you stay with family or friends who can help and support you. You can also admit yourself to an outpatient, inpatient, or residential detox program. ?? Don't drive until all symptoms are gone and you feel better. You should also not drive until you have been checked by your healthcare provider. The provider will need to make sure you do not have a seizure disorder. ?? If you were given sedative medicine to help your symptoms, don't take it more often than prescribed. Never take it with alcohol. ?? Take daily vitamins.??Heavy drinking plus poor nutrition can lead to a thiamine deficiency. This can cause permanent brain damage.??Look for vitamins that have thiamine. Follow-up care Once you have gone through the withdrawal symptoms, you have fought half of the broussard. To prevent the risk of returning to your old drinking pattern, you should get follow-up support and treatment. These resources can help you: ?? Alcoholics Anonymous offers support through a self-help fellowship. ?? [employer] offers support to families of alcohol users. Call 992-746-7485. ?? National [place] on Alcoholism and Drug Dependence (NCADD) has more information. Call 216-893-8457. You can also search the internet or check your phonebook for Drug Abuse & Treatment Centers in your area. Call 911 Call 911 if any of these occur: ?? Another seizure ?? Trouble breathing or slow, irregular breathing ?? Chest pain ?? Sudden weakness on 1 side of your body or sudden trouble speaking ?? Heavy bleeding or vomiting blood ?? Very drowsy or trouble awakening ?? Fainting or loss of consciousness ?? Rapid heart rate When to seek medical advice Call your healthcare provider right away if any of these occur: ?? Severe shakiness ?? Hallucinations ?? Fever of 100.4??F (38.0??C) or higher, or as directed by your provider ?? Headache, confusion ?? Pain in your upper abdomen that gets worse ?? Repeated vomiting [employer] last reviewed this educational content on 12/13/2018 ?? [id number] [employer]. All rights reserved. This information is not intended as a substitute for professional medical care. Always follow your healthcare professional's instructions. Return in about 3 months (around 01/11/2022), or if symptoms worsen or fail to improve, for Preventative Visit. Kathi Clark MD [facility] JAJA Ledezma is a 41 year old who presents for the following health issues HPI Hospital Follow-up Visit: Hospital/Group Home/IP Rehab Facility: [facility] Date of Admission: 10/01 Date of Discharge: 10/05 Reason(s) for Admission: seizure, hyperglycemia, elevated LFTs Was your hospitalization related to COVID-19? No Problems taking medications regularly: None Medication changes since discharge: None Problems adhering to non-medication therapy: None Summary of hospitalization: [facility] discharge summary reviewed Diagnostic Tests/Treatments reviewed. Follow up needed: Neurology, Addiction medicine Other Healthcare Providers Involved in Patient???s Care: Homecare Update since discharge: stable. Post Discharge Medication Reconciliation: discharge medications reconciled and changed, per note/orders. Plan of care communicated with patient Allergies Allergen Reactions ??? Sulfa Drugs Pain Past Medical History: Diagnosis Date ??? Hypertension 10/01/2021 Past Surgical History: Procedure Laterality Date ??? SOFT TISSUE SURGERY 07/15/1999 Nerve repair right index finger Family History Problem Relation Age of Onset ??? Diabetes Paternal Grandmother Diabetes Social History Tobacco Use ??? Smoking status: Never Smoker ??? Smokeless tobacco: Never Used Substance Use Topics ??? Alcohol use: Not Currently Comment: Use to drink 2-3 drinks a day 5 days a week. Currently zero Current Outpatient Medications Medication ??? amLODIPine (NORVASC) 2.5 MG tablet ??? cetirizine (ZYRTEC) 10 MG tablet ??? fexofenadine-pseudoePHEDrine (JENNIFER-D 24) 180-240 MG 24 hr tablet ??? fluticasone (FLONASE) 50 MCG/ACT nasal spray ??? folic acid (FOLVITE) 1 MG tablet ??? ketotifen (ZADITOR) 0.025 % ophthalmic solution ??? Multiple Vitamins-Minerals (MULTIVITAMIN GUMMIES ADULT) CHEW ??? naproxen sodium (ANAPROX) 220 MG tablet ??? oxymetazoline (AFRIN) 0.05 % nasal spray ??? thiamine (B-1) 100 MG tablet No current facility-administered medications for this visit. Review of Systems Constitutional, HEENT, cardiovascular, pulmonary, GI, , musculoskeletal, neuro, skin, endocrine and psych systems are negative, except as otherwise noted. Objective BP 130/80 (BP Location: Right arm, Patient Position: Sitting, Cuff Size: Adult Regular) Pulse 85 Temp 97.9 ??F (36.6 ??C) (Temporal) Resp 14 Ht 1.854 m (6' 1) Wt 85.3 kg (188 lb) SpO2 97% BMI 24.80 kg/m?? Body mass index is 24.8 kg/m??. Physical Exam GENERAL: healthy, alert and no distress NECK: no adenopathy, no asymmetry, masses, or scars and thyroid normal to palpation RESP: lungs clear to auscultation - no rales, rhonchi or wheezes CV: regular rate and rhythm, normal S1 S2, no S3 or S4, no murmur, click or rub, no peripheral edemaand peripheral pulses strong ABDOMEN: soft, nontender, no hepatosplenomegaly, no masses and bowel sounds normal MS: no gross musculoskeletal defects noted, no edema NEURO : CN 2-12 normal, no motor or sensory deficits. documented in this encounter Plan of Treatment Upcoming Encounters Date Type Specialty Care Team Description 02/07/2022 Virtual Visit Psychology Raulito Flores tt, [employer] [address] [place] [address] (Wo rk) 02/15/2022 Ancillary Procedure Neurology Leann Schmitt MD [address] [place] [address] [phone] (Wo rk) 03/05/2022 Virtual Visit Neurology Leann Villagran MD [address] [place] [address] [phone] (Wo rk) Scheduled Referrals Name Type Priority Associated Diagnoses Order S chedule Adult Mental Health Referral Routine: Next Seizures (H) Expected: Drapery Operator Referral available opening Alcohol withdrawa l 10/12/2021 syndrome with (Approximate), complication (H) Expires: Alcohol dependence with withdrawal with complication (H) Adult Neurology Referral Routine: Next Seizures (H) Expected: Drapery Operator Referral available opening 09/14 (Approximate), Expires: 10/12/2022 documented as of this encounter Results (ABNORMAL) Comprehensive metabolic panel (BMP + Alb, Alk Phos, ALT, AST, Total. Bili, TP) (10/19/2021 10:13 AM CDT) Patholo gist Method Time Signature Sodium 138 133 - [...] and gender (Aura et al., NEJM, DOI: 10.1056/[id number]) Specimen Anatomical Collection Method / Collection Time Recei heber Time (Source) Location / Volume Laterality Blood STRUCTURE OF RIGHT Venipuncture / 10/19/2021 10:13 01/2022 UPPER LIMB / Unknown AM CDT 10:13 AM CDT Unknown Kathi Clark MD LAB - BLOOD ORDERABLES Performing Organization Address [facility] Phon e Number [facility] [place], [place] [phone] [facility] [phone] [place] [address] Lab (no room number, 1st floor of clinic) [facility] [place], [place] [phone] [facility] [phone] [address] Lab (no room number, 1st floor [...] LAB - BLOOD ORDERABLES Performing Organization Address City[facility] Phon e Number [facility] [place], [place] [phone] [facility] [address] [place] [address] Lab (no room number, 1st floor of clinic) [facility] [place], [place] [phone] [facility] [address] [address] Lab (no room number, 1st floor [...] City/State/ZIP Code Phon e Number [facility] [place], [place] [phone] [facility] [phone] [place] [address] Lab (no room number, 1st floor of clinic) [facility] [place], [place] [phone] [facility] [phone], [facility] [address] Lab (no room number, 1st floor [...] e Number [facility] CORE/PROT/ENDO [facility] [place], [place] [address] Core/Prot/Endo [address] [facility], Room 3[facility] HIV Antigen Antibody Combo (10/19/2021 10:13 AM CDT) [facility] gist Method Time Signature HIV Antigen Nonreactive [...] e Number [facility] SPECIAL[facility] CORE/PROT/ENDO [facility] [place], [place] [address] Core/Prot/Endo [address] [facility], Room 3-580 documented in this encounter Visit Diagnoses Diagnosis Seizures (H) - Primary Other convulsions Alcohol withdrawal syndrome with complic ation (H) Alcohol dependence with withdrawal with complication (H) Abnormal LFTs Other abnormal blood chemistry Need for hepatitis C screening test Special screening examination for other specified viral diseases Screening for hyperlipidemia Screening for lipoid disorders Screening for HIV (human immunodeficienc y virus) Special screening examination for other specified viral diseases Need for vaccination Need for prophylactic vaccination and in oculation against unspecified single disease documented in this encounter Additional Health Concerns Assessment Noted Time PHQ-9 Depression Total Score: 0 10/12/2021 2:01 PM CDT documented as of this encounter Care Teams Search Planner Relationship Specialty Start Date End Date No Ref-Primary, Physician PCP - General 10/01/21 10/18/21 Kathi Clark MD Assigned PCP 09/21/[address] [place] [address] [place] [address] documented as of this encounter
--- OUTSIDE RECORDS SUMMARY | 2022-02-20 12:20 | XMS_ITS | Encounter Summary ---
:1980 Author Organization [place] Address [address] [facility] [address] Care Team Providers Name Role Phone No Ref-Primary, Physician Primary Care Provider [phone] [facility] Jaja Rivera Primary Care Provider [phone] Kathi Clark MD Primary Care Provider [facility] [place] Primary Care Provider [phone] Kathi Clark MD Unavailable Reason for Visit Reason Onset Date Comments Referral 10/12/2021 Encounter Details Date Type Department Care Team Description 10/12/2021 Telephone [facility] None Referral [phone] , [address] [place], [place] [phone] Social History Tobacco Use Types Packs/Day Years [...] / COVID-19? documented as of this encounter Miscellaneous Notes Telephone Encounter - Balbina Oliveira - 10/13/2021 9:57 AM CDT New mincep intake Telephone Encounter - Raquel Osborne MA - 10/12/2021 2:17 PM CDT Please reach out to patient to schedule a new patient seizure appt ( see ED notes ). documented in this encounter Plan of Treatment Upcoming Encounters Date Type Specialty Care Team Description 02/07/2022 Virtual Visit Psychology Raulito Flores tt, [facility] [address] [place] [address] (Wo rk) 02/15/2022 Ancillary Procedure Neurology Leann Schmitt MD [address] [place] [phone] (Wo rk) 03/05/2022 Virtual Visit Neurology Leann Villagran MD [address] [place] [phone] (Blue west) documented as of this encounter Visit Diagnoses Not on filedocumented in this encounter Additional Health Concerns Assessment Noted Time PHQ-9 Depression Total Score: 0 10/12/2021 2:01 PM CDT documented as of this encounter Care Teams Banquet Bartender Relationship Specialty Start Date End Date No Ref-Primary, Physician PCP - General 10/01/21 10/18/21 [facility] PCP - General 10/19/21 10/19/[address] [place] [address] [place] [address] Kathi Clark MD PCP - General Internal Medicine 10/20/21 10/30/[address] [place] [address] [place] [phone] [facility] PCP - General 10/31/[address] [place] [address] [place] [address] Kathi Clark MD Assigned PCP 09/21/[address] [place] [address] [place] [id number] documented as of this encounter
--- OUTSIDE RECORDS SUMMARY | 2022-02-20 12:20 | XMS_ITS | Encounter Summary ---
:1980 Author Organization [place] Address [address] [facility] [place] [address] Care Team Providers Name Role Phone Kathi Clark MD Primary Care Provider Kathi Clark MD Unavailable Encounter Details Date Type Department Care Team Description 10/26/2021 Travel Social History Tobacco Use Types Packs/Day [...] 02/07/2022 Virtual Visit Psychology Raulito Flores tt, BARN WORK[employer] [address] [place] [address] (Wo rk) 02/15/2022 Ancillary Procedure Neurology Leann Schmitt MD [address] [place] [address] [phone] (Wo rk) 03/05/2022 Virtual Visit Neurology Leann Villagran MD [address] [place] [phone] (Wo rk) documented as of this encounter Visit Diagnoses Not on filedocumented in this encounter Additional Health Concerns Assessment Noted Time PHQ-9 Depression Total Score: 0 10/12/2021 2:01 PM CDT documented as of this encounter Care Teams Head Banquet Waitress Relationship Specialty Start Date End Date Kathi Clark MD PCP - General Internal Medicine 10/20/21 10/30/[address] [place] [address] [place] [phone] Kathi Clark MD Assigned PCP 09/21/[address] [place] [address] [place] [phone] documented as of this encounter
--- OUTSIDE RECORDS SUMMARY | 2022-02-20 12:20 | XMS_ITS | Encounter Summary ---
:1980 Author Organization [place] Address [address] [facility] [place] [address] Care Team Providers Name Role Phone Kathi Clark MD Primary Care Provider Kathi Clark MD Unavailable Reason for Visit Reason Comments Anxiety Encounter Details Date Type Department Care Team Description [facility] with [facility] GHADA CainFT Uncomplicated alcohol dependence (H) [address] [place] [address] [address] [place] [address] [phone] Social History Tobacco Use Types Packs/Day Years [...] encounter Progress Notes Raulito Flores, THERESE - 10/26/2021 10:00 AM CDT Images from the original note were not included. [facility] Counseling Progress Note Patient Name: Darien Mckenzie Date: 10/26/21 Service Type: Couple Session Start Time: 10 AM session End Time: 11 AM Session Length: 60 minutes Session #: 1 Attendees: Client and Spouse / Significant Other Service Modality: Video Visit: Provider verified identity through the following two step process. Patient provided: Patient was verified at admission/transfer Telemedicine Visit: The patient's condition can be safely assessed and treated via synchronous audioand visual telemedicine encounter. Reason for Telemedicine Visit: Patient has requested telehealth visit Originating Site (Patient Location): Patient's home Distant Site (Provider Location): [facility] Consent: The patient/guardian has verbally consented to: the potential risks and benefits of telemedicine (video visit) versus in person care; bill my insurance or make self-payment for services provided; and responsibility for payment of non-covered services. Patient would like the video invitation sent by: My Chart Mode of Communication:?? Video Conference via dondeEsta™ As the provider I attest to compliance with applicable laws and regulations related to telemedicine. DATA Interactive Complexity: No Crisis: No Progress Since Last Session (Related to Symptoms / Goals / Homework): Symptoms: Worsening Client stated since last session he had increasing difficulties including a relapse of substance abuse including hiding his drinking. His fianc??e joined the session and and conveyed her significant concern. The client's demonstrated significant irritability and frustration directed at his ex- and their legal battles. His adjustment to his drinking problem provoking a seizurecontinues to be complex and triggers anxiety Homework: Completed in session Episode of Care Goals: No improvement - PREPARATION (Decided to change - considering how); Intervened by negotiating a change plan and determining options / strategies for behavior change, identifyingtriggers, exploring social supports, and working towards setting a date to begin behavior change Current / Ongoing Stressors and Concerns: The client returned to conjoint psychotherapy session to address adjustment disorder with anxiety, following the medical crisis of having a seizure following alcohol detoxification. He stated that he was going to remain sober for the extent of his psychotherapy and for the first stable future. Client returned, and stated that he had a relapse of alcohol, leading to significant difficulties between him and his fianc??e Brayan. He included her and on the virtual call. He stated that he was asked to leave the home and is now staying at his parents house in [place]. Brayan indicated that he had drank on Saturday night, and she recognized it. She states that he was lying and hiding his use forsome time, and she was very concerned about this. The client stated that with the conflict, he activated to try and arrange a visit for [facility]. He states that he is going to the doctor today at his local [place] and going to get assessed/referred and will complete a release of info rmation when possible. The client stated that he was deeply sorry for his actions of hiding and misrepresenting the truth. Therapist highlighted the importance of atonement, and repair with honesty andvulnerability. The client states that he continues to drink as a coping strategy as he deals with the continued legal battles that his ex- continues to age. He states that following the resolved family divorce, he has struggled with multiple legal proceedings that she initiates, attempting to manipulate the system and further put a wedge between him and his property as well as his children. He states that he has several sentimental things still in the home, and his ex- has prevented him fromhaving them. 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 Therapist highlighted the importance of recognizing his need for coping strategies as a replacement for his drinking behaviors. The client stated that he understood, and would start to work on his anger towards his ex. Treatment Objective(s) Addressed in This Session: identify 2-5 strategies to more effectively address stressors identify at least 3 alternative response(s) to aggressive behaviors Intervention: Motivational Interviewing CA Intervention: Expressed Empathy/Understanding, Supported Autonomy, Collaboration, Evocation, [...] Score 18 PROMIS TOTAL - SUBSCORES 35 [place] Suicide Severity Rating Scale (Lifetime/Recent) [place] Suicide Severity Rating (Lifetime/Recent) 10/18/2021 10/27/2021 Q1 [...] any of these risk factors. Appearance: Appropriate Disheveled Eye Contact: Good Psychomotor Behavior: Restless Attitude: Cooperative Guarded Orientation: All Speech Rate / Production: Normal Volume: Normal Mood: Angry Anxious Irritable Affect: Appropriate Thought Content: Clear Rumination Thought Form: Coherent Logical Insight: Good Medication Review: No current psychiatric medications prescribed Medication Compliance: NA Changes in Health Issues: None reported Chemical Use Review: Substance Use: increase in alcohol . Patient reports frequency of use More than he wishes to drink,and secrecy.. Reviewed information and resources for treatment and ongoing sobriety Patient assessed present costs and future losses as a result of substance use Reviewed concerns related to health related substance abuse risk Provided encouragement towards sobriety Provided support and affirmation for steps taken towards sobriety Discussed treatment options and encouraged patient to schedule an appointment with PCP Client took initiative to contact [facility], and is pursuing services later today. Tobacco Use: No current tobacco use. Diagnosis: 1. Adjustment disorder with anxious mood Collateral Reports Completed: Not Applicable PLAN: (Patient Tasks / Therapist Tasks / Other) Client will schedule and complete treatment services focused on his sobriety of alcohol. Therapist will resume sessions when client deems it appropriate. 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 PROMIS (reviewed every 90 days): Referral / Collaboration: Was/were discussed and patient will pursue. [facility] treatment services were identified by the client as helpful. He has an appointment for consumer education specialist evaluation and referral for their services. [...] 02/07/2022 Virtual Visit Psychology Raulito Flores tt, ENGINE COWLING INSTALLER [address] [place] [address] (Wo rk) 02/15/2022 Ancillary Procedure Neurology Leann Schmitt MD [address] [place] [address] [phone] (Wo rk) 03/05/2022 Virtual Visit Neurology Leann Villagran MD [address] [place] [address] [phone] (Wo rk) documented as of this encounter Visit Diagnoses Diagnosis Adjustment disorder with anxious mood - Primary Adjustment disorder with anxiety Uncomplicated alcohol dependence (H) Other and unspecified alcohol dependence , unspecified drinking behavior documented in this encounter Additional Health Concerns Assessment Noted Time PHQ-9 Depression Total Score: 0 10/12/2021 2:01 PM CDT documented as of this encounter Care Teams Vise Hand Relationship Specialty Start Date End Date Kathi Clark MD PCP - General Internal Medicine 10/20/21 10/30/[address] [place] [address] [place] [address] Kathi Clark MD Assigned PCP 09/21/[address] [place] [address] [place] [address] documented as of this encounter
--- OUTSIDE RECORDS SUMMARY | 2022-02-20 12:20 | XMS_ITS | Encounter Summary ---
:1980 Author Organization [place] Address [address] [facility] [address] Care Team Providers Name Role Phone Clinic, [facility] Primary Care Provider [phone] Kathi Clark MD Unavailable Encounter Details Date Type Department Care Team Description 10/19/2021 Travel Social History Tobacco Use Types Packs/Day [...] CDT Travel History Travel Start Travel End [place] 12/30/2021 01/12/2022 COVID-19 Exposure Response Date Recorded In the last month, have you been in contact with No / Unsure 10/19/2021 10:05 AM CDT someone who was confirmed or suspected to have Coronavirus / COVID-19? documented as of this encounter Plan of Treatment Upcoming Encounters Date Type Specialty Care Team Description 02/07/2022 Virtual Visit Psychology Raulito Flores tt, STATION ENGINEER MAIN LINE [address] [place] [address] (Wo rk) 02/15/2022 Ancillary Procedure Neurology Leann Schmitt MD [address] [place] [address] [phone] (Wo rk) 03/05/2022 Virtual Visit Neurology Leann Villagran MD [address] [place] [phone] (Wo rk) documented as of this encounter Visit Diagnoses Not on filedocumented in this encounter Additional Health Concerns Assessment Noted Time PHQ-9 Depression Total Score: 0 10/12/2021 2:01 PM CDT documented as of this encounter Care Teams Instantizer Operator Relationship Specialty Start Date End Date [facility] [place] Jaja Rowan PCP - General 10/19/21 10/19/[address] [place] [address] [place] [address] Kathi Clark MD Assigned PCP 09/21/[address] [place] [address] [place] [id number] documented as of this encounter
--- OUTSIDE RECORDS SUMMARY | 2022-02-20 12:20 | XMS_ITS | Encounter Summary ---
:1980 Author Organization [place] Address [address] [facility] [place] [address] Care Team Providers Name Role Phone No Ref-Primary, Physician Primary Care Provider [phone] Kathi Clark MD Unavailable Encounter Details Date Type Department Care Team Description 10/09/2021 Telephone [facility] Jaja Kim Ref-Prim Anum orozco Physician [address] [facility] kay [place] [phone] Social History Tobacco Use Types Packs/Day Years Used Date Never Assessed Sex Assigned at Date Recorded Male 10/09/2021 11:09 AM CDT Travel History Travel Start Travel End [place] 12/30/2021 01/12/2022 COVID-19 Exposure Response Date Recorded In the last month, have you been in contact with No / Unsure 10/09/2021 10:01 AM CDT someone who was confirmed or suspected to have Coronavirus / COVID-19? documented as of this encounter Miscellaneous Notes Telephone Encounter - Tigist Garcia RN - 10/09/2021 11:23 AM CDT Pt calling regarding a form from [employer] that he needs filled out. He was recently in the hospital and does have f/u appointment scheduled with Dr. Clark this week to establish care and f/u with this. Form is: seizure/loss of consciousness. Has never seen provider before. Per documentation pt should not drive for 3 months or until cleared. He did have EEG done and will discuss with Dr. Clark to see if she will be able to fill this out for him. He stated his understandingand had no further questions or concerns. Tigist Gilbert RN [facility] documented in this encounter Plan of Treatment Upcoming Encounters Date Type Specialty Care Team Description 02/07/2022 Virtual Visit Psychology Raulito Flores , [address] [address] (Wo rk) 02/15/2022 Ancillary Procedure Neurology Leann Schmitt MD [address] [place] [phone] (Wo rk) 03/05/2022 Virtual Visit Neurology Leann Villagran MD [address] [place] [phone] (Wo rk) documented as of this encounter Visit Diagnoses Not on filedocumented in this encounter Care Teams Cotton Grader Relationship Specialty Start Date End Date No Ref-Primary, Physician PCP - General 10/01/21 10/18/21 Kathi Clark MD Assigned PCP 09/21/[address] [place] [address] [place] [address] documented as of this encounter
--- OUTSIDE RECORDS SUMMARY | 2022-02-20 12:20 | XMS_ITS | Encounter Summary ---
:1980 Author Organization [place] Address [address] [facility] [place] [address] Care Team Providers Name Role Phone Kathi Clark MD Primary Care Provider [facility] Primary Care Provider [phone] Kathi Clark MD Unavailable Reason for Visit Reason Onset Date Comments Results 10/20/2021 Encounter Details Date Type Department Care Team Description 10/20/2021 Telephone [facility] Results [address] [place], [place] [phone] [place], [place] [phone] (Wo rk) Social History Tobacco Use Types [...] Telephone Encounter - Tigist Garcia RN - 10/23/2021 12:47 PM CDT Patient Contact Attempt # 1 Was call answered? No Left non-detailed message to call the clinic back at [phone]. Promimic message sent as well. call center rn back: -Relay message from Dr. Clark, see below. Tigist Gilbert RN [facility] Telephone Encounter - Kathi Clark MD - 10/20/2021 6:14 PM CDT OK to check in yearly labs again. Thank you, Kathi Clark MD on 10/20/2021 at 6:14 PM Telephone Encounter - Jackie Felder RN - 10/20/2021 1:45 PM CDT S/w pt and gave Dr. Clark's reply below and advised to look on my chart for the diet plan. Pt is wondering when he should return to have cholesterol/triglycerides checked again? Can respond via my chart. Jackie Keane RN EP Triage Telephone Encounter - Jackie Felder RN - 10/20/2021 1:33 PM CDT ----- Message from Kathi Clark MD sent at 10/20/2021 1:26 PM CDT ----- Your Triglyceride levels on cholesterol is elevated , sent in fish oil capsules for improvement. Limit consumption of red meat and diet modifications as below for improvement. Your Liver function has been remaining abnormal , nut improving mildly at slower pace as compared torecent labs in the hospital. Please quit alcohol completely for improvement. All your other labs normal, you may see some highlighted which do not have Clinical significance. Kathi Clark MD on 10/20/2021 at 1:25 PM documented in this encounter Plan of Treatment Upcoming Encounters Date Type Specialty Care Team Description 02/07/2022 [facility] Raulito Flores tt, [address] [address] (Wo rk) 02/15/2022 Ancillary Procedure Neurology Leann Schmitt MD [address] [place] [phone] (Wo rk) 03/05/2022 Virtual Visit Neurology Leann Villagran MD [address] [place] [address] [phone] (Wo rk) documented as of this encounter Visit Diagnoses Not on filedocumented in this encounter Additional Health Concerns Assessment Noted Time PHQ-9 Depression Total Score: 0 10/12/2021 2:01 PM CDT documented as of this encounter Care Teams Finished Goods Inspector Relationship Specialty Start Date End Date Kathi Clark MD PCP - General Internal Medicine 10/20/21 10/30/[address] [place] [address] [place] [address] [facility] Jaja Rowan PCP - General 10/31/[address] [place] [address] [place] [address] Kathi Clark MD Assigned PCP 09/21/[address] [place] [address] [place] [address] documented as of this encounter
--- OUTSIDE RECORDS SUMMARY | 2022-02-20 12:20 | XMS_ITS | Encounter Summary ---
:1980 Author Organization [place] Address [address] [facility] [place] [address] Care Team Providers Name Role Phone No Ref-Primary, Physician Primary Care Provider [phone] Kathi Clark MD Unavailable Encounter Details Date Type Department Care Team Description 10/18/2021 Travel Social History Tobacco Use Types Packs/Day [...] 02/07/2022 Virtual Visit Psychology Raulito Flores tt, MATHEMATICS ACADEMIC CHAIR [address] [place] [address] (Wo rk) 02/15/2022 Ancillary Procedure Neurology Leann Schmitt MD [address] [place] [phone] (Wo rk) 03/05/2022 Virtual Visit Neurology Leann Villagran MD [address] [place] [address] [phone] (Wo rk) documented as of this encounter Visit Diagnoses Not on filedocumented in this encounter Additional Health Concerns Assessment Noted Time PHQ-9 Depression Total Score: 0 10/12/2021 2:01 PM CDT documented as of this encounter Care Teams Attending Pathologist Relationship Specialty Start Date End Date No Ref-Primary, Physician PCP - General 10/01/21 10/18/21 Kathi Clark MD Assigned PCP 09/21/[address] [place] [address] [place] [address] documented as of this encounter
--- OUTSIDE RECORDS SUMMARY | 2022-02-20 12:21 | XMS_ITS | Encounter Summary ---
:1980 Author Organization [place] Address [address] [facility] [place] [address] Care Team Providers Name Role Phone No Ref-Primary, Physician Primary Care Provider [phone] Kathi Clark MD Unavailable Encounter Details Date Type Department Care Team Description 10/03/2021 Hospital Encounter [facility] Judy Oseguera MD [address] [place], [place] NEUROLOGY [address] [address] [facility] [phone] [address] [place], [place] [address] (Wo rk) Social History Tobacco Use Types [...] / COVID-19? documented as of this encounter Medications at Time of Discharge Medication Sig Dispensed Refills Start Date End Date cetirizine (ZYRTEC) 10 Take 10 mg by mouth 0 MG tablet daily as needed for allergies (fall) fexofenadine-pseudoePHED Take 1 tablet by 0 rine (JENNIFER-D 24) mouth daily as 180-240 MG 24 hr tablet needed for allergies (fall) fluticasone (FLONASE) 50 George 1 spray into 0 MCG/ACT nasal spray [...] as needed for moderate pain oxymetazoline (AFRIN) George 2 sprays into 0 0.05 % nasal spray both nostrils 2 times daily as needed for congestion (fall) amLODIPine (NORVASC) 2.5 Take 1 tablet (2.5 [...] documented as of this encounter Progress Notes Casie Jo Bullard - 10/03/2021 10:51 AM CDT Routine EEG completed. documented in this encounter Plan of Treatment Upcoming Encounters Date Type Specialty Care Team Description 02/07/2022 Virtual Visit Psychology Raulito Flores tt, SILICA SPRAY MIXER [address] [place] [address] (Wo rk) 02/15/2022 Ancillary Procedure Neurology Leann Schmitt MD [address] [place] [phone] (Wo rk) 03/05/2022 Virtual Visit Neurology Leann Villagran MD [address] [place] [address] [phone] (Wo rk) documented as of this encounter Procedures Procedure Name Priority Date/Time Associated Diagnosis Comme nts EEG AWAKE OR DROWSY Routine 10/03/2021 10:51 AM R esults for this ROUTINE CDT procedure are i n the results section. documented in this encounter Results EEG Awake or Drowsy Routine (10/03/2021 10:51 AM CDT) Specimen (Source) Anatomical Location Collection Method / Collectio n Time Received Time / Laterality Volume Narrative [facility] - 10/03/2021 3:46 PM CDT Neurology EEG Report [facility] ? [October 03, 2021] ? Darien Mckenzie ?41 year o ld yo male [id number] 1980 Admission Date: @ADMITDT@ Description of Record [...] is required. ??Aubrey Cain M.D., Ph.D. ??[facility] ?? Edgar Oseguera MD IMG EEG ORDERABLES Performing Organization Address City/State/ZIP Code Phon e Number [email or web address] documented in this encounter Visit Diagnoses Not on filedocumented in this encounter Care Teams Lens Shaper Grinder Relationship Specialty Start Date End Date No Ref-Primary, Physician PCP - General 10/01/21 10/18/21 Kathi Clark MD Assigned PCP 09/21/[address] [place] [address] [place] [address] documented as of this encounter
--- OUTSIDE RECORDS SUMMARY | 2022-02-20 12:21 | XMS_ITS | Encounter Summary ---
:1980 Author Organization [place] Address [address] [facility] [place] [address] Care Team Providers Name Role Phone No Ref-Primary, Physician Primary Care Provider Kathi Clark MD Unavailable Encounter Details Date Type Department Care Team Description 10/01/2021 Travel Social History Tobacco Use Types Packs/Day Years Used Date Never Assessed Sex Assigned at Date Recorded Male 10/09/2021 11:09 AM CDT Travel History Travel Start Travel End [place] 12/30/2021 01/12/2022 COVID-19 Exposure Response Date Recorded In the last month, have you been in contact with No / Unsure 10/01/2021 1:30 PM CDT someone who was confirmed or suspected to have Coronavirus / COVID-19? documented as of this encounter Plan of Treatment Upcoming Encounters Date Type Specialty Care Team Description 02/07/2022 Virtual Visit Psychology Raulito Flores tt, UPTWIST SPINNER[address] [address] ([place]) 02/15/2022 Ancillary Procedure Neurology Leann Schmitt MD [address] [place], [place] [phone] ([place]) 03/05/2022 Virtual Visit Neurology Leann Villagran MD [address] [place], [place] [address] (Wo rk) documented as of this encounter Visit Diagnoses Not on filedocumented in this encounter Care Teams Keysmith Relationship Specialty Start Date End Date No Ref-Primary, Physician PCP - General 10/01/21 10/18/21 Kathi Clark MD Assigned PCP 09/21/[address] [place] [address] [place] [phone] documented as of this encounter
== END 2022-01-25 10:34 | disposition home or self-care (01) ==
LOC: NFLDREF 10:34
PROVIDERS: PCP Family Medicine; Visit Provider Family Medicine
DX: Z00.00 Encounter for general adult medical examination without abnormal findings (principal); E78.5 Hyperlipidemia, unspecified; F10.21 Alcohol dependence, in remission; I10 Essential (primary) hypertension
CPT/HCPCS: 80053; 80061

== ENCOUNTER 2022-06-12 13:25 | Outpatient (CLI) | payer MEDICAID, SELFPAY ==
--- OUTSIDE RECORDS SUMMARY | 2022-06-12 15:09 | XMS_ITS | Encounter Summary ---
:1980 Author Organization [place] Address [facility] [place] [place] [address] Care Team Providers Name Role Phone Clinic, [facility] Primary Care Provider [phone] Kathi Clark MD Unavailable Leann Villagran MD Unavailable Encounter Details Date Type Department Care Team Description 02/06/2022 Ancillary Procedure [facility] ZEFERINO Villagran , Seizures (H) Epilepsy Care EEG MD Leann [address] [facility] [address] [place] [phone] Social History Tobacco Use Types Packs/Day Years Used Date Smoking Tobacco: Never Smokeless Tobacco: Never Alcohol Use Standard Drinks/Week Comments Not Currently 0 (1 standard drink = 0.6 oz pure Use to drink 2-3 drinks a day 5 alcohol) days a week. Current ly zero Sex Assigned at Date Recorded Male 10/09/2021 11:09 AM CDT COVID-19 Exposure Response Date Recorded In the last 10 days, have you been in contact with No / Unsu re 02/06/2022 8:47 AM CDT someone who was confirmed or suspected to have Coronavirus/COVID-19? documented as of this encounter Plan of Treatment Not on filedocumented as of this encounter Procedures Procedure Name Priority Date/Time Associated Comments Diagnosis EEG VIDEO 2-12 HRS Routine 02/06/2022 1:31 PM Seizures (H) Res ults for this CONTINUOUS CDT procedure are i n MONITORING the results section. documented in this encounter Results EEG Video 2-12 hrs Continuous Monitoring (02/06/2022 1:31 PM CDT) Specimen (Source) Anatomical Location Collection Method / Collectio n Time Received Time / Laterality Volume Narrative [id number] - 02/06/2022 2:07 PM CDT EEG Video 2-12 hrs Continuous Monitoring Result VIDEO EEG DATE: 02/06/2022 VIDEO EEG LOG: [id number] VIDEO EEG SOURCE FILE DURATION: 2 hours 33 minutes PATIENT INFORMATION: Darien Mckenzie is a 42 year old male with no known risk factors for epilepsy who underwent EEG monitoring to evaluate for an isolated seizure. MEDICATIONS: No relevant meds These medications and doses were derived from the medical record at the time of this procedure. TECHNICAL SUMMARY: EEG was recorded from 23 scalp electrodes placed according to the 10-20 international sys tem. Additional electrodes were used for referencing, EKG, and to record from other cerebral regions as appropriate. Video was continuously salma rded and was reviewed for clinical correlation. Electrodes were attached an d both video and EEG were monitored and annotated by qualified EEG technologists. Video-EEG was reviewed and report generated by qualifi ed physician. BACKGROUND ACTIVITY: ??During wakefulnes s, the background activity consists of synchronous and symmetric, well-modul ated, 11 Hz posterior dominant rhythm. The posterior dominant rhythm at tenuated with eye opening. During drowsiness, the background activity waxe d and waned and there were periods of slowing and attenuation of the dental technician metal ior alpha rhythm. ??Sharp transients were seen over the left front otemporal head region during drowsiness. ??Stage II sleep was recorde d in which vertex waves and symmetrical sleep spindles were identifi ed. ?? ACTIVATION PROCEDURE: Photic stimulation was performed and did not induce an abnormal activity on the EEG. INTERICTAL EPILEPTIFORM DISCHARGES: No e pileptiform discharges were present. ICTAL: No clinical events or electrograp hic seizures were recorded. Video was reviewed intermittently by EEG techn ologist and physician for clinical seizures. IMPRESSION OF VIDEO EEG: ??This is a nor mal awake and sleep video electroencephalogram. ??Sharp transients over the left frontotemporal head region during drowsiness did not appear epileptogenic and very likely wicket waves. ??No electrographic seizur es or epileptiform discharges were recorded. Clinical correlation is advise dMaria Luz Villagran MD EPILEPSY STAFF Leann Villagran MD IMG EEG ORDERABLES Performing Organization Address City/State/ZIP Code Phon e Number [id number] documented in this encounter Visit Diagnoses Diagnosis Seizures (H) Other convulsions documented in this encounter Additional Health Concerns Assessment Noted Time PHQ-9 Depression Total Score: 2 10/27/2021 8:19 AM CDT documented as of this encounter Care Teams Security Site Supervisor Relationship Specialty Start Date End Date [facility], [facility] PCP - General 10/31/[address] [id number] Kathi Clark MD Assigned PCP 09/21/[address] [place] [address] [place] [id number] Leann Villagran MD Assigned Neuroscience 01/27/[address] [place] [id number] documented as of this encounter
[2022-06-12 19:52] LABS: Chloride* 103 mmol/L (96-114); Potassium* 4.1 mmol/L (3.6-5.1); Sodium* 141 mmol/L (135-149)
[2022-06-12 19:55] LABS: Alanine Aminotransferase* 93 U/L (4-50); Alkaline Phosphatase* 39 U/L (40-150); Aspartate Amino Transferase* 49 U/L (12-35); Bilirubin Total* 0.9 mg/dL (0.1-1.5); Blood Urea Nitrogen* 13 mg/dL (5-24); Carbon Dioxide* 27 mmol/L (20-32); Creatinine* 0.7 mg/dL (0.5-1.5); Estimated Glomerular Filt Rate 118 ml/min; Glucose* 79 mg/dL (60-115); Total Protein* 7.7 g/dL (6.0-8.3)
[2022-06-12 19:56] LABS: Calcium* 9.6 mg/dL (8.4-10.6)
== END 2022-06-12 13:26 | disposition home or self-care (01) ==
LOC: LKVREF 15:07
PROVIDERS: PCP Family Medicine; Visit Provider Family Medicine
DX: E78.5 Hyperlipidemia, unspecified (principal)
CPT/HCPCS: 80053

== ENCOUNTER 2022-07-12 07:35 | Day surgery (SDC) | payer MEDICAID, SELFPAY ==
[2022-07-12] VITALS (14 sets, daily range): BP systolic 123–157; BP diastolic 87–103; PULSE 64–90; RESP 16; TEMP 36.7–37; O2SAT 95–97; BMI 25.2
[2022-07-12] MEDS: SODIUM CHLORIDE 0.9 % (FLUSH) 10 ML SYRINGE IVF (08:45)
[2022-07-12] MEDS: LACTATED RINGERS 1000 ML 1,000 ML 100 ML IV (08:45)
--- NOTE | 2022-07-12 08:53 | SUR.PREOP ---
Patient presented a negative COVID test from home, taken 07/11.
[2022-07-12] MEDS: BUPIVACAINE 0.25% 30 ML INJECTION (10:13)
--- NOTE | 2022-07-12 10:23 | W.ANESCHARGE ---
Anesthesia Charges Start Date/Time Anesthesia Start Date: 07/12/22 Anesthesia Start Time: 09:55 Stop Date/Time Anesthesia Stop Date: 07/12/22 Anesthesia Stop Time: 10:48 Summary Emergency: No
--- NOTE | 2022-07-12 10:32 | PM.GSPRC ---
Operative Note Date of procedure: 07/12/22 Pre-op diagnosis: Umbilical hernia Post-op diagnosis: Same Type of Procedure: Open umbilical hernia repair Procedure Description: After discussing the risks and benefits of the procedure, the patient signed informed consent.? The operative site was marked and the patient was brought to the operating room and placed on the operating table in supine position.? Care was taken to pad the patient's pressure points.?? The patient was then intubated by anesthesia.?? The operative site was then prepped and draped in the usual sterile fashion.? A time-out was then performed. Local anesthetic was injected into the fascia, skin and subcutaneous tissues. A curvilinear incision was made at the umbilicus. Dissection was carried down into the subcutaneous tissue using cautery. The hernia sac was encountered. Dissection was taken down to the fascia, and the umbilical stalk was carefully dissected off of the hernia sac. Once the hernia sac was dissected out circumferentially, it was opened and contained a small amount of preperitoneal fat which was reduced. The fascial edges were then cleared circumferentially. The hernia was 1 cm in size and so the decision was made to close the hernia primarily. This was done with 0 Nurolon suture in a vest over pants fashion. The umbilicus was reapproximated to the fascia. The skin was then closed with running absorbable suture. A sterile dressing was then applied. ? The patient was then woken and transported to the recovery area in stable condition. ? The patient tolerated the procedure well. Indications: The patient is a 42-year-old male who noticed an umbilical hernia which has become increasingly symptomatic for him. After discussion of options he has agreed to have it repaired. Findings: 1 cm fat containing umbilical hernia. Anesthesia: GETA Surgeon: Karrie Dick MD Estimated blood loss (mL): 1 Condition: stable Disposition: PACU
--- NOTE | 2022-07-12 10:46 | W.ANESCHARGE ---
Anesthesia Charges Start Date/Time Anesthesia Start Date: 07/12/22 Anesthesia Start Time: 09:55 Stop Date/Time Anesthesia Stop Date: 07/12/22 Anesthesia Stop Time: 10:48 Summary Emergency: No
[2022-07-12] MEDS: fentaNYL 100 MCG/2 ML inj 50 MCG IVP ×2 (10:55→11:03)
[2022-07-12] MEDS: OXYCODONE 5 MG TABLET PO ×2 (11:32→12:05)
== END 2022-07-12 12:54 | disposition home or self-care (01) ==
PROVIDERS: PCP Family Medicine; Visit Provider Surgery
PROC: (CPT 49585; principal; 2022-07-12 09:15)
DX: K42.9 Umbilical hernia without obstruction or gangrene (principal)
CPT/HCPCS: 49585; 00830; A9270; J1100; J1885; J2405; J2704; J3010; J3490; J7120

== ENCOUNTER 2022-10-26 10:27 | Outpatient (CLI) | payer MEDICAID, SELFPAY | END 2022-10-26 10:28 | disposition home or self-care (01) | LOC: NFLDREF 10-27 03:37 | PROVIDERS: PCP Family Medicine; Referring Provider Family Medicine; Visit Provider Family Medicine | DX: E78.5 Hyperlipidemia, unspecified (principal) | CPT/HCPCS: 80053; 80061 ==

== ENCOUNTER 2025-06-04 08:40 | Outpatient (CLI) | payer BC, SELFPAY | END 2025-06-04 08:41 | disposition home or self-care (01) | LOC: NFLDREF 06-10 13:47 | PROVIDERS: PCP Family Medicine; Referring Provider Family Medicine; Visit Provider Family Medicine | DX: E78.5 Hyperlipidemia, unspecified (principal); Z11.3 Encounter for screening for infections with a predominantly sexual mode of transmission | CPT/HCPCS: 80053; 80061; 86703 ==